=== PATIENT | male | born 1975 | race Caucasian/White ===

== ENCOUNTER 2019-10-16 20:14 | Emergency (ER) | payer MEDICAID, OTHER ==
[~2019-10-16] VITALS: Ht 172.7 cm; Wt 100.0 kg
[~2019-10-16 20:14] MED LIST: ASPI-728 PO; LEVE500T53 PO; LISI-662 PO; METF-960 PO; QUET200T PO; SERT100T12 PO; TRAZ-257 PO; VERA240SR PO
[2019-10-16 22:33] LABS: BASOPHILS % (AUTO) 0.6 % (0.0-2.0); EOSINOPHILS % (AUTO) 0.3 % (1.0-6.0); HEMATOCRIT 41.5 % (41-53); HEMOGLOBIN 13.8 g/dL (13.5-17.5); LYMPHOCYTES # (AUTO) 2.1 K/uL (1.0-4.8); LYMPHOCYTES % (AUTO) 21.5 % (22.0-44.0); MEAN CORPUSCULAR HEMOGLOBIN 28.6 pg (26.0-34.0); MEAN CORPUSCULAR HGB CONC 33.2 G/dL (31.0-37.0); MEAN CORPUSCULAR VOLUME 86 fL (80-100); MONOCYTES # (AUTO) 0.8 K/uL (0.1-1.0); MONOCYTES % (AUTO) 8.3 % (2.0-9.0); NEUTROPHILS # (AUTO) 6.8 K/uL (1.8-7.7); NEUTROPHILS % (AUTO) 69.3 % (40.0-70.0); PLATELET COUNT (AUTO) 308 K/uL (150-450); RED BLOOD CELL COUNT(AUTO) 4.83 MIL/uL (4.50-5.90); RED CELL DISTRIBUTION WIDTH 15.1 % (11.5-14.5)
[2019-10-16 22:43] LABS: ANION GAP 9 mmol/L (8-16); CALCIUM, TOTAL 8.1 mg/dL (8.8-10.5); CARBON DIOXIDE 29 mmol/L (22-29); CHLORIDE 104 mmol/L (98-107); CREATININE 0.77 mg/dL (0.60-1.30); GLOMERULAR FILTR. RATE CALC > 60 mL/min (>60); GLUCOSE,RANDOM 263 mg/dL (70-110); POTASSIUM 3.8 mmol/L (3.5-5.1); SODIUM SERUM 142 mmol/L (136-145); UREA NITROGEN, BLOOD 5 mg/dL (7-18)
[2019-10-16 22:49] LABS: ALANINE AMINOTRANSFERASE 38 U/L (12-78); ALBUMIN 3.7 g/dL (3.4-5.0); ALKALINE PHOSPHATASE 98 U/L (46-116); ASPARTATE AMINOTRANSFERASE 31 U/L (15-37); BILIRUBIN,TOTAL 0.3 mg/dL (0.1-1.0); TOTAL PROTEIN, SERUM 7.1 g/dL (6.4-8.2)
[2019-10-17 04:59] VITALS: BP 132/75
== END 2019-10-17 04:59 | disposition home or self-care (01) ==
LOC: EMS 20:16
DX: F10.229 Alcohol dependence with intoxication, unspecified (principal); I10 Essential (primary) hypertension; E11.9 Type 2 diabetes mellitus without complications; F20.9 Schizophrenia, unspecified; I25.10 Atherosclerotic heart disease of native coronary artery without angina pectoris; F14.90 Cocaine use, unspecified, uncomplicated; F17.290 Nicotine dependence, other tobacco product, uncomplicated; Z79.899 Other long term (current) drug therapy; Y90.8 Blood alcohol level of 240 mg/100 ml or more
CPT/HCPCS: 80053; 85025; 99285; G0480

== ENCOUNTER 2019-10-17 10:38 | Emergency (ER) | payer MEDICAID ==
[~2019-10-17] VITALS: Ht 170.2 cm; Wt 95.5 kg
[2019-10-17] MEDS ORDERED: MAG HYDROX/AL HYDROX/SIMETH ES 30 ML SUSPENSION UDCUP PO ONE (11:45)
[2019-10-17] MEDS ORDERED: ONDANSETRON HCL 4 MG/2 ML VIAL IVP ONE (11:45)
[2019-10-17] MEDS ORDERED: ASPIRIN 325 MG TABLET PO ONE (11:45)
[2019-10-17 12:17] LABS: BASOPHILS % (AUTO) 0.5 % (0.0-2.0); EOSINOPHILS % (AUTO) 0.2 % (1.0-6.0); HEMATOCRIT 39.3 % (41-53); HEMOGLOBIN 12.7 g/dL (13.5-17.5); LYMPHOCYTES % (AUTO) 26.9 % (22.0-44.0); MEAN CORPUSCULAR HEMOGLOBIN 28.1 pg (26.0-34.0); MEAN CORPUSCULAR HGB CONC 32.4 G/dL (31.0-37.0); MEAN CORPUSCULAR VOLUME 87 fL (80-100); MONOCYTES # (AUTO) 0.6 K/uL (0.1-1.0); NEUTROPHILS # (AUTO) 4.7 K/uL (1.8-7.7); NEUTROPHILS % (AUTO) 64.4 % (40.0-70.0); PLATELET COUNT (AUTO) 275 K/uL (150-450); RED BLOOD CELL COUNT(AUTO) 4.54 MIL/uL (4.50-5.90); RED CELL DISTRIBUTION WIDTH 14.9 % (11.5-14.5)
[2019-10-17 12:25] LABS: ANION GAP 10 mmol/L (8-16); CALCIUM, TOTAL 7.8 mg/dL (8.8-10.5); CARBON DIOXIDE 28 mmol/L (22-29); CHLORIDE 108 mmol/L (98-107); CREATININE 0.44 mg/dL (0.60-1.30); GLOMERULAR FILTR. RATE CALC > 60 mL/min (>60); GLUCOSE,RANDOM 229 mg/dL (70-110); POTASSIUM 3.5 mmol/L (3.5-5.1); SODIUM SERUM 146 mmol/L (136-145); UREA NITROGEN, BLOOD 6 mg/dL (7-18)
[2019-10-17 12:37] LABS: ALANINE AMINOTRANSFERASE 40 U/L (12-78); ALBUMIN 3.3 g/dL (3.4-5.0); ALKALINE PHOSPHATASE 77 U/L (46-116); ASPARTATE AMINOTRANSFERASE 43 U/L (15-37); BILIRUBIN,TOTAL 0.3 mg/dL (0.1-1.0); LIPASE 124 U/L (73-393); TOTAL PROTEIN, SERUM 6.6 g/dL (6.4-8.2)
[2019-10-17 14:36] VITALS: BP 114/60
== END 2019-10-17 14:38 | disposition home or self-care (01) ==
LOC: EMS 10:40
DX: E11.65 Type 2 diabetes mellitus with hyperglycemia (principal); F10.129 Alcohol abuse with intoxication, unspecified; F17.210 Nicotine dependence, cigarettes, uncomplicated; F14.90 Cocaine use, unspecified, uncomplicated; I25.10 Atherosclerotic heart disease of native coronary artery without angina pectoris; F20.9 Schizophrenia, unspecified; Y90.8 Blood alcohol level of 240 mg/100 ml or more
CPT/HCPCS: 36415; 71045; 80053; 83690; 84484; 85025; 93005; 96374; 99285; G0480; J2405

== ENCOUNTER 2019-10-20 12:24 | Emergency (ER) | payer MEDICAID ==
[~2019-10-20] VITALS: Ht 177.8 cm; Wt 118.2 kg
[2019-10-20 13:08] LABS: GLUCOSE,POINT OF CARE 216 MG/DL (70-110)
[2019-10-20 16:25] VITALS: BP 137/84
== END 2019-10-20 17:23 | disposition home or self-care (01) ==
LOC: EMS 12:26
DX: F10.129 Alcohol abuse with intoxication, unspecified (principal); I25.10 Atherosclerotic heart disease of native coronary artery without angina pectoris; E11.9 Type 2 diabetes mellitus without complications; I10 Essential (primary) hypertension; F17.210 Nicotine dependence, cigarettes, uncomplicated; F14.90 Cocaine use, unspecified, uncomplicated; F20.9 Schizophrenia, unspecified; Z79.82 Long term (current) use of aspirin; Z79.84 Long term (current) use of oral hypoglycemic drugs

== ENCOUNTER 2019-10-22 13:37 | Emergency (ER) | payer MEDICAID ==
[~2019-10-22] VITALS: Ht 177.8 cm; Wt 113.6 kg
[2019-10-22] MEDS ORDERED: SODIUM CHLORIDE 0.9% 1,000 ML IV ONE (14:00)
[2019-10-22 14:32] LABS: BASOPHILS % (AUTO) 0.4 % (0.0-2.0); EOSINOPHILS % (AUTO) 0.3 % (1.0-6.0); HEMATOCRIT 40.5 % (41-53); HEMOGLOBIN 13.6 g/dL (13.5-17.5); LYMPHOCYTES # (AUTO) 1.2 K/uL (1.0-4.8); LYMPHOCYTES % (AUTO) 27.7 % (22.0-44.0); MEAN CORPUSCULAR HGB CONC 33.6 G/dL (31.0-37.0); MEAN CORPUSCULAR VOLUME 86 fL (80-100); MONOCYTES # (AUTO) 0.4 K/uL (0.1-1.0); MONOCYTES % (AUTO) 9.9 % (2.0-9.0); NEUTROPHILS # (AUTO) 2.8 K/uL (1.8-7.7); NEUTROPHILS % (AUTO) 61.7 % (40.0-70.0); PLATELET COUNT (AUTO) 258 K/uL (150-450); RED CELL DISTRIBUTION WIDTH 14.6 % (11.5-14.5)
[2019-10-22 14:45] LABS: PROTHROMBIN TIME 10.1 SEC (9.4-11.6)
[2019-10-22 14:51] LABS: ANION GAP 13 mmol/L (8-16); CALCIUM, TOTAL 7.4 mg/dL (8.8-10.5); CARBON DIOXIDE 27 mmol/L (22-29); CHLORIDE 100 mmol/L (98-107); CREATININE 0.66 mg/dL (0.60-1.30); GLOMERULAR FILTR. RATE CALC > 60 mL/min (>60); GLUCOSE,RANDOM 349 mg/dL (70-110); POTASSIUM 3.2 mmol/L (3.5-5.1); SODIUM SERUM 140 mmol/L (136-145); UREA NITROGEN, BLOOD 3 mg/dL (7-18)
[2019-10-22 14:55] LABS: AMPHET/METH SCREEN,URINE NEGATIVE (NEGATIVE); BARBITURATE SCREEN, URINE NEGATIVE (NEGATIVE); BENZODIAZEPINES SCREEN,URINE NEGATIVE (NEGATIVE); CANNABINOID SCREEN,URINE NEGATIVE (NEGATIVE); COCAINE SCREEN,URINE NEGATIVE (NEGATIVE); METHADONE SCREEN, URINE NEGATIVE (NEGATIVE); OPIATE SCREEN,URINE NEGATIVE (NEGATIVE)
[2019-10-22 14:58] LABS: ALANINE AMINOTRANSFERASE 72 U/L (12-78); ALBUMIN 3.4 g/dL (3.4-5.0); ALKALINE PHOSPHATASE 98 U/L (46-116); ASPARTATE AMINOTRANSFERASE 70 U/L (15-37); BILIRUBIN,TOTAL 0.5 mg/dL (0.1-1.0); TOTAL PROTEIN, SERUM 6.5 g/dL (6.4-8.2)
[2019-10-22 15:13] LABS: PHENCYCLIDINE SCREEN,URINE NEGATIVE (NEGATIVE)
[2019-10-22] MEDS ORDERED: MAGNESIUM SULFATE 2 GM, MVI, ADULT NO.1 WITH VIT K 10 ML, THIAMINE 100 MG, FOLIC ACID 1... IV ONE ×5 (15:30)
[2019-10-22 17:47] VITALS: BP 159/94
== END 2019-10-22 17:40 | disposition left against medical advice (07) ==
LOC: EMS 13:43
DX: F10.229 Alcohol dependence with intoxication, unspecified (principal); I25.10 Atherosclerotic heart disease of native coronary artery without angina pectoris; F20.9 Schizophrenia, unspecified; E11.9 Type 2 diabetes mellitus without complications; I10 Essential (primary) hypertension; F17.210 Nicotine dependence, cigarettes, uncomplicated; F14.90 Cocaine use, unspecified, uncomplicated; Z79.82 Long term (current) use of aspirin; Z79.84 Long term (current) use of oral hypoglycemic drugs; Z79.899 Other long term (current) drug therapy; Y90.8 Blood alcohol level of 240 mg/100 ml or more
CPT/HCPCS: 36415; 80053; 80307; 82962; 84484; 85025; 85610; 85730; 93005; 96365; 96366; 99285; G0480; J3411; J3475; J3490 ×2; J7030; 51702

== ENCOUNTER 2019-10-23 17:47 | Inpatient (IN) | payer MEDICAID ==
[~2019-10-23] VITALS: Ht 167.6 cm; Wt 107.5 kg
[2019-10-23 19:51] LABS: BASOPHILS % (AUTO) 0.4 % (0.0-2.0); EOSINOPHILS % (AUTO) 0.4 % (1.0-6.0); HEMATOCRIT 37.3 % (41-53); HEMOGLOBIN 12.5 g/dL (13.5-17.5); LYMPHOCYTES # (AUTO) 1.3 K/uL (1.0-4.8); LYMPHOCYTES % (AUTO) 27.5 % (22.0-44.0); MEAN CORPUSCULAR HEMOGLOBIN 28.6 pg (26.0-34.0); MEAN CORPUSCULAR HGB CONC 33.4 G/dL (31.0-37.0); MEAN CORPUSCULAR VOLUME 86 fL (80-100); MONOCYTES # (AUTO) 0.4 K/uL (0.1-1.0); MONOCYTES % (AUTO) 8.4 % (2.0-9.0); NEUTROPHILS % (AUTO) 63.3 % (40.0-70.0); PLATELET COUNT (AUTO) 188 K/uL (150-450); RED BLOOD CELL COUNT(AUTO) 4.36 MIL/uL (4.50-5.90); RED CELL DISTRIBUTION WIDTH 14.4 % (11.5-14.5)
[2019-10-23 20:09] LABS: ANION GAP 8 mmol/L (8-16); CALCIUM, TOTAL 7.6 mg/dL (8.8-10.5); CARBON DIOXIDE 27 mmol/L (22-29); CHLORIDE 103 mmol/L (98-107); CREATININE 0.53 mg/dL (0.60-1.30); GLOMERULAR FILTR. RATE CALC > 60 mL/min (>60); GLUCOSE,RANDOM 233 mg/dL (70-110); POTASSIUM 3.1 mmol/L (3.5-5.1); SODIUM SERUM 138 mmol/L (136-145); UREA NITROGEN, BLOOD 4 mg/dL (7-18)
[2019-10-23 20:24] LABS: ALANINE AMINOTRANSFERASE 100 U/L (12-78); ALBUMIN 3.3 g/dL (3.4-5.0); ALKALINE PHOSPHATASE 91 U/L (46-116); ASPARTATE AMINOTRANSFERASE 127 U/L (15-37); BILIRUBIN,TOTAL 0.6 mg/dL (0.1-1.0); LIPASE 281 U/L (73-393); TOTAL PROTEIN, SERUM 6.5 g/dL (6.4-8.2)
[2019-10-23] MEDS ORDERED: POTASSIUM CHLORIDE 10% 40 MEQ/30 ML LIQUID UDCUP PO ONE (20:45)
[2019-10-24] VITALS (14 sets, daily range): BP systolic 130–176; BP diastolic 68–100
[2019-10-24] MEDS ORDERED: QUEtiapine FUMARATE 100 MG TABLET PO PRN (02:30)
[2019-10-24] MEDS: LORazepam 2 MG TABLET PO PRN ×4 (05:28→15:02)
[2019-10-24 05:43] LABS: THYROID STIMULATING HORMONE 1.12 uIU/mL (0.36-3.74)
[2019-10-24] MEDS ORDERED: ONDANSETRON HCL 4 MG TABLET PO PRN (06:30)
[2019-10-24] MEDS: LISINOPRIL 10 MG TABLET PO SCH (08:06)
[2019-10-24] MEDS: PANTOPRAZOLE SODIUM 40 MG DR TABLET PO SCH (08:06)
[2019-10-24] MEDS: VERAPAMIL HCL 120 MG TABLET PO SCH (14:05)
[2019-10-24] MEDS ORDERED: GLUCAGON,HUMAN RECOMBINANT 1 MG VIAL IM PRN (14:30)
[2019-10-24] MEDS ORDERED: LOPERAMIDE HCL 2 MG CAPSULE PO PRN (15:30)
[2019-10-24] MEDS ORDERED: PROMETHAZINE HCL 25 MG TABLET PO PRN (15:30)
[2019-10-24] MEDS ORDERED: CYANOCOBALAMIN 1,000 MCG/ML VIAL IM ONE (15:30)
[2019-10-24] MEDS ORDERED: GuaiFENesin/D-METHORPHAN [SUGAR-FREE] 200-20MG/10 ML SYRUP UDCUP PO PRN (15:30)
[2019-10-24] MEDS ORDERED: HydrOXYzine PAMOATE 50 MG CAPSULE PO PRN (15:30)
[2019-10-24] MEDS ORDERED: DIAZEPAM 10 MG TABLET PO PRN (15:30)
[2019-10-24] MEDS ORDERED: MAGNESIUM HYDROXIDE SUSPENSION 30 ML UDCUP PO PRN (15:30)
[2019-10-24] MEDS ORDERED: MAG HYDROX/AL HYDROX/SIMETH ES 30 ML SUSPENSION UDCUP PO PRN (15:30)
[2019-10-24] MEDS ORDERED: TUBERCULIN, PURIFIED PROTEIN DERIVATIVE 5 TU/0.1 ML SYRINGE ID ONE (15:30)
[2019-10-24] MEDS: THIAMINE 100 MG TABLET PO SCH (16:46)
[2019-10-24] MEDS: MetFORMIN HCL 500 MG TABLET PO SCH (16:47)
[2019-10-24] MEDS: LevETIRAcetam 500 MG TABLET PO SCH (16:47)
[2019-10-24] MEDS: GABAPENTIN 300 MG CAPSULE PO SCH ×2 (16:47→20:06)
[2019-10-24] MEDS: INSULIN LISPRO 100 UNITS/ML SQ PRN (17:10)
[2019-10-24] MEDS: ACETAMINOPHEN 325 MG TABLET PO PRN (17:24)
[2019-10-24 17:55] LABS: GLUCOMETER DEV NAME(LOC) BV3N.; GLUCOSE,POINT OF CARE 226 MG/DL (70-110)
[2019-10-24] MEDS: MIRTAZAPINE 15 MG TABLET PO SCH (20:06)
[2019-10-25] VITALS (8 sets, daily range): BP systolic 116–144; BP diastolic 70–87
[2019-10-25] MEDS: MetFORMIN HCL 500 MG TABLET PO SCH ×2 (06:31→16:32)
[2019-10-25] MEDS ORDERED: LORazepam 2 MG TABLET PO PRN (07:00)
[2019-10-25 07:09] LABS: GLUCOMETER DEV NAME(LOC) BV3N.; GLUCOSE,POINT OF CARE 184 MG/DL (70-110)
[2019-10-25 08:32] LABS: HEMOGLOBIN A1C 8.1 % (3.8-5.6)
[2019-10-25 08:38] LABS: CHOL/HDL RATIO 2.5 (4.2-7.3); FREE T4 (FREE THYROXINE) 1.12 ng/dL (0.76-1.46); THYROID STIMULATING HORMONE 1.34 uIU/mL (0.36-3.74)
[2019-10-25] MEDS: MULTIVITAMINS WITH MINERALS, THERAPEUTIC TABLET PO SCH (08:47)
[2019-10-25] MEDS: THIAMINE 100 MG TABLET PO SCH ×2 (08:47→16:32)
[2019-10-25] MEDS: LevETIRAcetam 500 MG TABLET PO SCH ×2 (08:48→16:32)
[2019-10-25] MEDS: LISINOPRIL 10 MG TABLET PO SCH (08:48)
[2019-10-25] MEDS: GABAPENTIN 300 MG CAPSULE PO SCH ×4 (08:48→20:34)
[2019-10-25] MEDS: VERAPAMIL HCL 120 MG TABLET PO SCH (08:48)
[2019-10-25] MEDS: DIAZEPAM 10 MG TABLET PO SCH ×4 (08:48→20:23)
[2019-10-25] MEDS: FOLIC ACID 1 MG TABLET PO SCH (08:48)
[2019-10-25] MEDS: PANTOPRAZOLE SODIUM 40 MG DR TABLET PO SCH (08:48)
[2019-10-25] MEDS ORDERED: LORazepam 2 MG TABLET PO SCH (09:00)
[2019-10-25] MEDS: INSULIN LISPRO 100 UNITS/ML SQ PRN (16:33)
[2019-10-25 18:35] LABS: GLUCOMETER DEV NAME(LOC) BV3N.; GLUCOSE,POINT OF CARE 217 MG/DL (70-110)
[2019-10-25] MEDS: MIRTAZAPINE 15 MG TABLET PO SCH (20:23)
[2019-10-26] VITALS: BP 124/90
[2019-10-26] MEDS: ZOLPIDEM TARTRATE 10 MG TABLET PO PRN (00:33)
[2019-10-26 01:00] VITALS: BP 134/94
[2019-10-26] MEDS: ACETAMINOPHEN 325 MG TABLET PO PRN (01:04)
[2019-10-26] MEDS: MetFORMIN HCL 500 MG TABLET PO SCH ×2 (06:13→16:57)
[2019-10-26 06:39] LABS: GLUCOMETER DEV NAME(LOC) BV3S.; GLUCOSE,POINT OF CARE 189 MG/DL (70-110)
[2019-10-26 08:05] VITALS: BP 138/78
[2019-10-26 08:06] VITALS: BP 138/78
[2019-10-26] MEDS: LISINOPRIL 10 MG TABLET PO SCH (08:13)
[2019-10-26] MEDS: THIAMINE 100 MG TABLET PO SCH ×2 (08:13→16:58)
[2019-10-26] MEDS: FOLIC ACID 1 MG TABLET PO SCH (08:13)
[2019-10-26] MEDS: PANTOPRAZOLE SODIUM 40 MG DR TABLET PO SCH (08:13)
[2019-10-26] MEDS: LevETIRAcetam 500 MG TABLET PO SCH ×2 (08:13→16:57)
[2019-10-26] MEDS: MULTIVITAMINS WITH MINERALS, THERAPEUTIC TABLET PO SCH (08:13)
[2019-10-26] MEDS: GABAPENTIN 300 MG CAPSULE PO SCH ×2 (08:13→13:00)
[2019-10-26] MEDS: DIAZEPAM 10 MG TABLET PO SCH ×4 (08:13→20:21)
[2019-10-26] MEDS: VERAPAMIL HCL 120 MG TABLET PO SCH (08:15)
[2019-10-26 12:09] LABS: GLUCOMETER DEV NAME(LOC) BV3N.; GLUCOSE,POINT OF CARE 199 MG/DL (70-110)
[2019-10-26] MEDS: INSULIN LISPRO 100 UNITS/ML SQ PRN ×2 (12:09→17:13)
[2019-10-26 16:03] VITALS: BP 131/99
[2019-10-26] MEDS: GABAPENTIN 400 MG CAPSULE PO SCH ×2 (16:57→20:21)
[2019-10-26 17:26] LABS: GLUCOMETER DEV NAME(LOC) BV3N.; GLUCOSE,POINT OF CARE 235 MG/DL (70-110)
[2019-10-26] MEDS: MIRTAZAPINE 15 MG TABLET PO SCH (20:21)
[2019-10-27 01:29] VITALS: BP 128/86
[2019-10-27] MEDS: ZOLPIDEM TARTRATE 10 MG TABLET PO PRN (01:39)
[2019-10-27] MEDS: DIAZEPAM 10 MG TABLET PO PRN ×2 (01:39→06:12)
[2019-10-27] MEDS: MetFORMIN HCL 500 MG TABLET PO SCH (06:11)
[2019-10-27 06:13] LABS: GLUCOMETER DEV NAME(LOC) BV3N.; GLUCOSE,POINT OF CARE 149 MG/DL (70-110)
[2019-10-27] MEDS: INSULIN LISPRO 100 UNITS/ML SQ PRN (06:15)
[2019-10-27] MEDS ORDERED: LORazepam 1 MG TABLET PO PRN (07:00)
[2019-10-27] MEDS ORDERED: DIAZEPAM 5 MG TABLET PO PRN (07:00)
[2019-10-27] MEDS: ACETAMINOPHEN 325 MG TABLET PO PRN (07:12)
[2019-10-27 08:12] VITALS: BP 99/60
[2019-10-27] MEDS: THIAMINE 100 MG TABLET PO SCH (08:12)
[2019-10-27] MEDS: FOLIC ACID 1 MG TABLET PO SCH (08:12)
[2019-10-27] MEDS: GABAPENTIN 400 MG CAPSULE PO SCH ×2 (08:12→12:33)
[2019-10-27] MEDS: LISINOPRIL 10 MG TABLET PO SCH (08:12)
[2019-10-27] MEDS: MULTIVITAMINS WITH MINERALS, THERAPEUTIC TABLET PO SCH (08:12)
[2019-10-27] MEDS: DIAZEPAM 5 MG TABLET PO SCH ×2 (08:13→12:33)
[2019-10-27] MEDS: LevETIRAcetam 500 MG TABLET PO SCH (08:13)
[2019-10-27] MEDS: PANTOPRAZOLE SODIUM 40 MG DR TABLET PO SCH (08:13)
[2019-10-27 08:15] VITALS: BP 110/62
[2019-10-27] MEDS: VERAPAMIL HCL 120 MG TABLET PO SCH (08:16)
[2019-10-27] MEDS ORDERED: GABA-1201 PO (08:55)
[2019-10-27] MEDS ORDERED: NALT50TA PO (08:55)
[2019-10-27] MEDS ORDERED: MIRT-89 PO (08:55)
[2019-10-27] MEDS ORDERED: LEVE500T53 PO (08:55)
[2019-10-27] MEDS ORDERED: LORazepam 1 MG TABLET PO SCH (09:00)
[2019-10-27] MEDS ORDERED: PANT-31 PO (10:58)
[2019-10-27] MEDS ORDERED: VERA120T33 PO (10:58)
[2019-10-27] MEDS ORDERED: LISI-661 PO (11:12)
[2019-10-27 11:57] LABS: GLUCOMETER DEV NAME(LOC) BV3N.; GLUCOSE,POINT OF CARE 157 MG/DL (70-110)
[2019-10-27] MEDS ORDERED: LOPERAMIDE HCL 2 MG CAPSULE PO PRN (15:30)
[2019-10-28] MEDS ORDERED: DIAZEPAM 5 MG TABLET PO PRN (07:00)
[2019-10-28] MEDS ORDERED: LORazepam 1 MG TABLET PO PRN (07:00)
== END 2019-10-27 13:54 | disposition home or self-care (01) | DRG 751 ==
LOC: EMS 17:49 → B3A 10-24 02:17
PROVIDERS: ADMIT Psychiatry & Neurology Psychiatry; ATTEND Psychiatry & Neurology Psychiatry
DX: F33.2 Major depressive disorder, recurrent severe without psychotic features (principal); E11.65 Type 2 diabetes mellitus with hyperglycemia; R45.851 Suicidal ideations; K70.30 Alcoholic cirrhosis of liver without ascites; G40.409 Other generalized epilepsy and epileptic syndromes, not intractable, without status epilepticus; I10 Essential (primary) hypertension; I25.10 Atherosclerotic heart disease of native coronary artery without angina pectoris; Z59.0 Homelessness; Z87.11 Personal history of peptic ulcer disease; F10.229 Alcohol dependence with intoxication, unspecified; Z91.5 Personal history of self-harm; F17.210 Nicotine dependence, cigarettes, uncomplicated; K21.9 Gastro-esophageal reflux disease without esophagitis; E87.6 Hypokalemia; K25.9 Gastric ulcer, unspecified as acute or chronic, without hemorrhage or perforation; F20.9 Schizophrenia, unspecified; F14.90 Cocaine use, unspecified, uncomplicated; Z91.19 Patient's noncompliance with other medical treatment and regimen; F12.90 Cannabis use, unspecified, uncomplicated; Y90.8 Blood alcohol level of 240 mg/100 ml or more; Z68.38 Body mass index [BMI] 38.0-38.9, adult; Z79.899 Other long term (current) drug therapy
CPT/HCPCS: 83036; 84439; 84443; 86592; G0480; J3420; Q0162

== ENCOUNTER 2019-11-22 07:56 | Emergency (ER) | payer MEDICAID ==
[~2019-11-22] VITALS: Ht 175.3 cm; Wt 97.7 kg
[~2019-11-22 07:56] MED LIST changes: +GABA-1201 PO; +LISI-661 PO; +MIRT-89 PO; +NALT50TA PO; +PANT-31 PO; +VERA120T33 PO
[2019-11-22 08:51] LABS: BASOPHILS % (AUTO) 0.5 % (0.0-2.0); EOSINOPHILS % (AUTO) 0.1 % (1.0-6.0); HEMATOCRIT 42.5 % (41-53); LYMPHOCYTES % (AUTO) 14.9 % (22.0-44.0); MEAN CORPUSCULAR HEMOGLOBIN 28.3 pg (26.0-34.0); MEAN CORPUSCULAR HGB CONC 33.1 G/dL (31.0-37.0); MEAN CORPUSCULAR VOLUME 86 fL (80-100); MONOCYTES # (AUTO) 0.4 K/uL (0.1-1.0); MONOCYTES % (AUTO) 6.3 % (2.0-9.0); NEUTROPHILS # (AUTO) 5.4 K/uL (1.8-7.7); NEUTROPHILS % (AUTO) 78.2 % (40.0-70.0); PLATELET COUNT (AUTO) 244 K/uL (150-450); RED BLOOD CELL COUNT(AUTO) 4.97 MIL/uL (4.50-5.90); RED CELL DISTRIBUTION WIDTH 14.4 % (11.5-14.5)
[2019-11-22 08:59] LABS: ANION GAP 11 mmol/L (8-16); CALCIUM, TOTAL 7.9 mg/dL (8.8-10.5); CARBON DIOXIDE 27 mmol/L (22-29); CHLORIDE 101 mmol/L (98-107); CREATININE 0.61 mg/dL (0.60-1.30); GLOMERULAR FILTR. RATE CALC > 60 mL/min (>60); GLUCOSE,RANDOM 132 mg/dL (70-110); POTASSIUM 3.5 mmol/L (3.5-5.1); SODIUM SERUM 139 mmol/L (136-145); UREA NITROGEN, BLOOD 10 mg/dL (7-18)
[2019-11-22 09:05] LABS: ALANINE AMINOTRANSFERASE 100 U/L (12-78); ALBUMIN 3.4 g/dL (3.4-5.0); ALKALINE PHOSPHATASE 76 U/L (46-116); ASPARTATE AMINOTRANSFERASE 209 U/L (15-37); BILIRUBIN,TOTAL 0.5 mg/dL (0.1-1.0); TOTAL PROTEIN, SERUM 7.1 g/dL (6.4-8.2)
[2019-11-22 09:09] LABS: ACETAMINOPHEN < 2 mcg/mL (10-30)
[2019-11-22 09:47] LABS: SALICYLATE 1.9 mg/dL (2.8-20.0)
[2019-11-22 10:24] LABS: AMPHET/METH SCREEN,URINE NEGATIVE (NEGATIVE); BARBITURATE SCREEN, URINE NEGATIVE (NEGATIVE); BENZODIAZEPINES SCREEN,URINE NEGATIVE (NEGATIVE); CANNABINOID SCREEN,URINE NEGATIVE (NEGATIVE); COCAINE SCREEN,URINE NEGATIVE (NEGATIVE); METHADONE SCREEN, URINE NEGATIVE (NEGATIVE); OPIATE SCREEN,URINE NEGATIVE (NEGATIVE)
[2019-11-22 10:35] LABS: PHENCYCLIDINE SCREEN,URINE NEGATIVE (NEGATIVE)
[2019-11-22] MEDS ORDERED: SODIUM CHLORIDE 0.9% 1,000 ML IV ONE (12:45)
[2019-11-22] MEDS ORDERED: MAGNESIUM SULFATE 2 GM, MVI, ADULT NO.1 WITH VIT K 10 ML, THIAMINE 100 MG, FOLIC ACID 1... IV ONE ×5 (12:45)
[2019-11-22 15:42] VITALS: BP 127/74
[2019-11-22] MEDS ORDERED: SERT100T12 PO (15:42)
== END 2019-11-22 16:28 | disposition home or self-care (01) ==
LOC: EMS 07:57
DX: F10.229 Alcohol dependence with intoxication, unspecified (principal); G31.2 Degeneration of nervous system due to alcohol; E11.9 Type 2 diabetes mellitus without complications; I10 Essential (primary) hypertension; I25.10 Atherosclerotic heart disease of native coronary artery without angina pectoris; F14.90 Cocaine use, unspecified, uncomplicated; F17.290 Nicotine dependence, other tobacco product, uncomplicated; Z79.84 Long term (current) use of oral hypoglycemic drugs; Y90.8 Blood alcohol level of 240 mg/100 ml or more
CPT/HCPCS: 36415; 70450; 80053; 80307; 82962; 85025; 93005; 96365; 96366; 99285; G0480 ×2; G0481; J3411; J3475; J3490 ×2; J7030

== ENCOUNTER 2019-11-24 08:08 | Emergency (ER) | payer MEDICAID ==
[~2019-11-24] VITALS: Ht 175.3 cm; Wt 86.4 kg
[~2019-11-24 08:08] MED LIST changes: -ASPI-728 PO; -LISI-662 PO; -QUET200T PO; -TRAZ-257 PO; -VERA240SR PO
[2019-11-24 08:42] LABS: GLUCOSE,POINT OF CARE 136 MG/DL (70-110)
[2019-11-24] MEDS ORDERED: SODIUM CHLORIDE 0.9% 1,000 ML IV ONE (08:45)
[2019-11-24 09:30] LABS: BASOPHILS % (AUTO) 0.3 % (0.0-2.0); EOSINOPHILS % (AUTO) 0.2 % (1.0-6.0); HEMATOCRIT 40.6 % (41-53); HEMOGLOBIN 13.5 g/dL (13.5-17.5); LYMPHOCYTES # (AUTO) 1.2 K/uL (1.0-4.8); LYMPHOCYTES % (AUTO) 17.9 % (22.0-44.0); MEAN CORPUSCULAR HEMOGLOBIN 28.3 pg (26.0-34.0); MEAN CORPUSCULAR HGB CONC 33.2 G/dL (31.0-37.0); MEAN CORPUSCULAR VOLUME 85 fL (80-100); MONOCYTES # (AUTO) 0.3 K/uL (0.1-1.0); MONOCYTES % (AUTO) 5.2 % (2.0-9.0); NEUTROPHILS % (AUTO) 76.4 % (40.0-70.0); PLATELET COUNT (AUTO) 204 K/uL (150-450); RED BLOOD CELL COUNT(AUTO) 4.75 MIL/uL (4.50-5.90); RED CELL DISTRIBUTION WIDTH 14.7 % (11.5-14.5)
[2019-11-24 09:49] LABS: ANION GAP 7 mmol/L (8-16); CALCIUM, TOTAL 7.6 mg/dL (8.8-10.5); CARBON DIOXIDE 30 mmol/L (22-29); CHLORIDE 105 mmol/L (98-107); CREATININE 0.73 mg/dL (0.60-1.30); GLOMERULAR FILTR. RATE CALC > 60 mL/min (>60); GLUCOSE,RANDOM 135 mg/dL (70-110); POTASSIUM 3.8 mmol/L (3.5-5.1); SODIUM SERUM 142 mmol/L (136-145); UREA NITROGEN, BLOOD 9 mg/dL (7-18)
[2019-11-24 09:56] LABS: ALANINE AMINOTRANSFERASE 109 U/L (12-78); ALBUMIN 3.1 g/dL (3.4-5.0); ALKALINE PHOSPHATASE 69 U/L (46-116); ASPARTATE AMINOTRANSFERASE 144 U/L (15-37); BILIRUBIN,TOTAL 0.4 mg/dL (0.1-1.0); TOTAL PROTEIN, SERUM 6.4 g/dL (6.4-8.2)
[2019-11-24 12:16] VITALS: BP 111/56
[2019-11-24 12:38] LABS: AMPHET/METH SCREEN,URINE NEGATIVE (NEGATIVE); BARBITURATE SCREEN, URINE NEGATIVE (NEGATIVE); BENZODIAZEPINES SCREEN,URINE NEGATIVE (NEGATIVE); CANNABINOID SCREEN,URINE NEGATIVE (NEGATIVE); COCAINE SCREEN,URINE NEGATIVE (NEGATIVE); METHADONE SCREEN, URINE NEGATIVE (NEGATIVE); OPIATE SCREEN,URINE NEGATIVE (NEGATIVE); PHENCYCLIDINE SCREEN,URINE NEGATIVE (NEGATIVE)
== END 2019-11-24 12:37 | disposition home or self-care (01) ==
LOC: EMS 08:08
DX: F10.129 Alcohol abuse with intoxication, unspecified (principal); I25.10 Atherosclerotic heart disease of native coronary artery without angina pectoris; E11.9 Type 2 diabetes mellitus without complications; I10 Essential (primary) hypertension; F20.9 Schizophrenia, unspecified; F17.210 Nicotine dependence, cigarettes, uncomplicated; F14.90 Cocaine use, unspecified, uncomplicated; Z79.84 Long term (current) use of oral hypoglycemic drugs; Z79.899 Other long term (current) drug therapy; Y90.8 Blood alcohol level of 240 mg/100 ml or more
CPT/HCPCS: 36415; 80053; 80307; 82962; 85025; 99283; G0480; J7030

== ENCOUNTER 2020-01-17 07:30 | Inpatient (IN) | payer MEDICAID ==
[~2020-01-17] VITALS: Ht 167.6 cm; Wt 102.5 kg
[~2020-01-17 07:30] MED LIST changes: +LISI-660 PO; +RAMI1.258 PO; +SIMV-259 PO
[2020-01-17 08:15] LABS: BASOPHILS % (AUTO) 0.6 % (0.0-2.0); EOSINOPHILS % (AUTO) 2.1 % (1.0-6.0); HEMOGLOBIN 13.5 g/dL (13.5-17.5); LYMPHOCYTES # (AUTO) 1.6 K/uL (1.0-4.8); LYMPHOCYTES % (AUTO) 32.8 % (22.0-44.0); MEAN CORPUSCULAR HEMOGLOBIN 26.7 pg (26.0-34.0); MEAN CORPUSCULAR VOLUME 83 fL (80-100); MONOCYTES # (AUTO) 0.5 K/uL (0.1-1.0); MONOCYTES % (AUTO) 9.6 % (2.0-9.0); NEUTROPHILS # (AUTO) 2.7 K/uL (1.8-7.7); NEUTROPHILS % (AUTO) 54.9 % (40.0-70.0); PLATELET COUNT (AUTO) 336 K/uL (150-450); RED BLOOD CELL COUNT(AUTO) 5.05 MIL/uL (4.50-5.90); RED CELL DISTRIBUTION WIDTH 16.8 % (11.5-14.5)
[2020-01-17] MEDS ORDERED: IOVERSOL 350 MG/ML 100 ML VIAL ONE (08:25)
[2020-01-17] MEDS ORDERED: SODIUM CHLORIDE 0.9% 100 ML ONE (08:25)
[2020-01-17 08:27] LABS: ANION GAP 8 mmol/L (8-16); CALCIUM, TOTAL 8.2 mg/dL (8.8-10.5); CARBON DIOXIDE 28 mmol/L (22-29); CHLORIDE 105 mmol/L (98-107); CREATININE 0.73 mg/dL (0.60-1.30); GLOMERULAR FILTR. RATE CALC > 60 mL/min (>60); GLUCOSE,RANDOM 126 mg/dL (70-110); POTASSIUM 3.4 mmol/L (3.5-5.1); SODIUM SERUM 141 mmol/L (136-145); UREA NITROGEN, BLOOD 9 mg/dL (7-18)
[2020-01-17 08:32] LABS: ALANINE AMINOTRANSFERASE 61 U/L (12-78); ALBUMIN 3.6 g/dL (3.4-5.0); ALKALINE PHOSPHATASE 71 U/L (46-116); ASPARTATE AMINOTRANSFERASE 51 U/L (15-37); BILIRUBIN,TOTAL 0.4 mg/dL (0.1-1.0); TOTAL PROTEIN, SERUM 7.3 g/dL (6.4-8.2)
[2020-01-17 08:53] LABS: LIPASE 189 U/L (73-393)
[2020-01-17] MEDS ORDERED: HALOPERIDOL 5 MG TABLET PO PRN (10:15)
[2020-01-17] MEDS: DIAZEPAM 5 MG TABLET PO PRN ×3 (12:05→19:06)
[2020-01-17 13:15] LABS: APPEARANCE,URINE CLEAR (CLEAR); BILIRUBIN,URINE NEGATIVE (NEGATIVE); GLUCOSE, URINE (UA) 250 mg/dL (NEGATIVE); KETONES,URINE NEGATIVE (NEGATIVE); LEUKOCYTE ESTERASE ,URINE NEGATIVE (NEGATIVE); NITRATE,URINE NEGATIVE (NEGATIVE); OCCULT BLOOD,URINE NEGATIVE (NEGATIVE); PROTEIN,URINE NEGATIVE (NEGATIVE)
[2020-01-17 13:21] LABS: AMPHET/METH SCREEN,URINE NEGATIVE (NEGATIVE); BARBITURATE SCREEN, URINE NEGATIVE (NEGATIVE); BENZODIAZEPINES SCREEN,URINE NEGATIVE (NEGATIVE); CANNABINOID SCREEN,URINE NEGATIVE (NEGATIVE); COCAINE SCREEN,URINE NEGATIVE (NEGATIVE); METHADONE SCREEN, URINE NEGATIVE (NEGATIVE); OPIATE SCREEN,URINE NEGATIVE (NEGATIVE)
[2020-01-17 13:23] LABS: PHENCYCLIDINE SCREEN,URINE NEGATIVE (NEGATIVE)
[2020-01-17 13:26] LABS: BACTERIA,URINE None Seen /HPF (None Seen); RBC,URINE None Seen /HPF (0-2); WBC,URINE None Seen /HPF (0-5)
[2020-01-17 18:45] VITALS: BP 141/84
[2020-01-17 18:55] LABS: GLUCOMETER DEV NAME(LOC) BV3N.; GLUCOSE,POINT OF CARE 194 MG/DL (70-110)
[2020-01-17] MEDS ORDERED: ACETAMINOPHEN 325 MG TABLET PO PRN (19:30)
[2020-01-17] MEDS ORDERED: GLUCAGON,HUMAN RECOMBINANT 1 MG VIAL IM PRN (19:30)
[2020-01-17 19:40] VITALS: BP 116/86
[2020-01-17] MEDS ORDERED: PNEUMOCOCCAL VACCINE POLYVALENT 0.5 ML VIAL [PPSV23] IM ONE (20:15)
[2020-01-17] MEDS: SIMVASTATIN 10 MG TABLET PO SCH (20:31)
[2020-01-17] MEDS: GABAPENTIN 400 MG CAPSULE PO SCH (20:31)
[2020-01-17 20:40] VITALS: BP 117/64
[2020-01-17] MEDS: INSULIN LISPRO 100 UNITS/ML SQ PRN (20:58)
[2020-01-17 21:21] LABS: GLUCOMETER DEV NAME(LOC) BV3N.; GLUCOSE,POINT OF CARE 159 MG/DL (70-110)
[2020-01-17 21:40] VITALS: BP 116/70
[2020-01-18] VITALS (11 sets, daily range): BP systolic 122–145; BP diastolic 79–89
[2020-01-18 06:25] LABS: GLUCOMETER DEV NAME(LOC) BV3N.; GLUCOSE,POINT OF CARE 131 MG/DL (70-110)
[2020-01-18] MEDS: DIAZEPAM 5 MG TABLET PO PRN (06:58)
[2020-01-18] MEDS: MetFORMIN HCL 500 MG TABLET PO SCH ×2 (06:58→16:48)
[2020-01-18] MEDS ORDERED: DIAZEPAM 10 MG TABLET PO PRN (07:00)
[2020-01-18] MEDS ORDERED: MAGNESIUM HYDROXIDE SUSPENSION 30 ML UDCUP PO PRN (08:15)
[2020-01-18] MEDS ORDERED: ALBUTEROL SULFATE HFA 90 MCG/PUFF 8 GM INHALER IH PRN (08:15)
[2020-01-18] MEDS ORDERED: DOCUSATE SODIUM 100 MG CAPSULE PO PRN (08:15)
[2020-01-18] MEDS ORDERED: MAG HYDROX/AL HYDROX/SIMETH ES 30 ML SUSPENSION UDCUP PO PRN (08:15)
[2020-01-18] MEDS ORDERED: LOPERAMIDE HCL 2 MG CAPSULE PO PRN (08:15)
[2020-01-18] MEDS ORDERED: ACETAMINOPHEN 325 MG TABLET PO PRN (08:15)
[2020-01-18] MEDS ORDERED: PETROLATUM,WHITE 28 GM JELLY TP PRN (08:15)
[2020-01-18] MEDS ORDERED: GuaiFENesin/D-METHORPHAN [SUGAR-FREE] 200-20MG/10 ML SYRUP UDCUP PO PRN (08:15)
[2020-01-18] MEDS ORDERED: CloNIDine HCL 0.1 MG TABLET PO PRN (08:15)
[2020-01-18] MEDS ORDERED: ONDANSETRON HCL 4 MG TABLET PO PRN (08:15)
[2020-01-18 08:24] LABS: CHOL/HDL RATIO 2.4 (4.2-7.3); CHOLESTEROL 172 mg/dL (131-200); FREE T4 (FREE THYROXINE) 0.94 ng/dL (0.76-1.46); HDL CHOLESTEROL 72 mg/dL (40-60); LDL CHOL (CALC.) 86 mg/dL (0-130); THYROID STIMULATING HORMONE 1.45 uIU/mL (0.36-3.74); TRIGLYCERIDES 71 mg/dL (15-150)
[2020-01-18] MEDS: PANTOPRAZOLE SODIUM 40 MG DR TABLET PO SCH (08:41)
[2020-01-18] MEDS: DIAZEPAM 10 MG TABLET PO SCH ×4 (08:41→20:54)
[2020-01-18] MEDS: LevETIRAcetam 500 MG TABLET PO SCH ×2 (08:41→16:48)
[2020-01-18] MEDS: GABAPENTIN 400 MG CAPSULE PO SCH ×4 (08:41→20:53)
[2020-01-18] MEDS: LISINOPRIL 10 MG TABLET PO SCH (08:41)
[2020-01-18] MEDS ORDERED: LevETIRAcetam 500 MG TABLET PO SCH (09:00)
[2020-01-18] MEDS: VERAPAMIL HCL 120 MG ER TABLET PO SCH (09:00)
[2020-01-18] MEDS ORDERED: LISINOPRIL 10 MG TABLET PO SCH (09:00)
[2020-01-18] MEDS ORDERED: PANTOPRAZOLE SODIUM 40 MG DR TABLET PO SCH (09:00)
[2020-01-18 10:55] LABS: GLUCOMETER DEV NAME(LOC) BV3N.; GLUCOSE,POINT OF CARE 238 MG/DL (70-110)
[2020-01-18] MEDS: INSULIN LISPRO 100 UNITS/ML SQ PRN ×3 (11:34→20:59)
[2020-01-18] MEDS: IBUPROFEN 400 MG TABLET PO PRN (12:30)
[2020-01-18] MEDS: TraMADol HCL 50 MG TABLET PO PRN (13:45)
[2020-01-18] MEDS: QUEtiapine FUMARATE 100 MG TABLET PO SCH (16:48)
[2020-01-18] MEDS ORDERED: MetFORMIN HCL 500 MG TABLET PO SCH (17:00)
[2020-01-18 17:30] LABS: GLUCOMETER DEV NAME(LOC) BV3N.; GLUCOSE,POINT OF CARE 176 MG/DL (70-110)
[2020-01-18] MEDS: MIRTAZAPINE 15 MG TABLET PO SCH (20:54)
[2020-01-18] MEDS: SIMVASTATIN 10 MG TABLET PO SCH (20:54)
[2020-01-18 21:27] LABS: GLUCOMETER DEV NAME(LOC) BV3N.; GLUCOSE,POINT OF CARE 153 MG/DL (70-110)
[2020-01-19 01:45] VITALS: BP 124/81
[2020-01-19 06:21] VITALS: BP 132/78
[2020-01-19 06:21] LABS: GLUCOMETER DEV NAME(LOC) BV3N.; GLUCOSE,POINT OF CARE 122 MG/DL (70-110)
[2020-01-19] MEDS: MetFORMIN HCL 500 MG TABLET PO SCH ×2 (06:36→16:27)
[2020-01-19] MEDS: PANTOPRAZOLE SODIUM 40 MG DR TABLET PO SCH (09:11)
[2020-01-19] MEDS: LISINOPRIL 10 MG TABLET PO SCH (09:11)
[2020-01-19] MEDS: DIAZEPAM 10 MG TABLET PO SCH ×4 (09:11→21:10)
[2020-01-19] MEDS: QUEtiapine FUMARATE 100 MG TABLET PO SCH ×2 (09:11→16:26)
[2020-01-19] MEDS: LevETIRAcetam 500 MG TABLET PO SCH ×2 (09:12→16:27)
[2020-01-19] MEDS: GABAPENTIN 400 MG CAPSULE PO SCH ×4 (09:12→21:09)
[2020-01-19] MEDS: VERAPAMIL HCL 120 MG ER TABLET PO SCH (09:17)
[2020-01-19 11:23] LABS: GLUCOMETER DEV NAME(LOC) BV3N.; GLUCOSE,POINT OF CARE 135 MG/DL (70-110)
[2020-01-19 14:21] VITALS: BP 125/78
[2020-01-19 14:24] VITALS: BP 130/75
[2020-01-19 16:08] VITALS: BP 136/78
[2020-01-19] MEDS: INSULIN LISPRO 100 UNITS/ML SQ PRN ×2 (16:56→21:17)
[2020-01-19 17:20] LABS: GLUCOMETER DEV NAME(LOC) BV3N.; GLUCOSE,POINT OF CARE 202 MG/DL (70-110)
[2020-01-19] MEDS: ZOLPIDEM TARTRATE 10 MG TABLET PO PRN (21:10)
[2020-01-19] MEDS: SIMVASTATIN 10 MG TABLET PO SCH (21:10)
[2020-01-19] MEDS: MIRTAZAPINE 15 MG TABLET PO SCH (21:10)
[2020-01-19 22:11] LABS: GLUCOMETER DEV NAME(LOC) BV3N.; GLUCOSE,POINT OF CARE 167 MG/DL (70-110)
[2020-01-20 00:52] VITALS: BP 132/71
[2020-01-20 00:58] VITALS: BP 132/71
[2020-01-20] MEDS: TraMADol HCL 50 MG TABLET PO PRN ×2 (03:07→16:01)
[2020-01-20] MEDS: MetFORMIN HCL 500 MG TABLET PO SCH ×2 (06:12→16:14)
[2020-01-20] MEDS: INSULIN LISPRO 100 UNITS/ML SQ PRN ×3 (06:15→21:07)
[2020-01-20 06:17] LABS: GLUCOMETER DEV NAME(LOC) BV3N.; GLUCOSE,POINT OF CARE 164 MG/DL (70-110)
[2020-01-20] MEDS ORDERED: DIAZEPAM 5 MG TABLET PO PRN (07:00)
[2020-01-20] MEDS: PANTOPRAZOLE SODIUM 40 MG DR TABLET PO SCH (08:42)
[2020-01-20] MEDS: LevETIRAcetam 500 MG TABLET PO SCH ×2 (08:42→16:14)
[2020-01-20] MEDS: GABAPENTIN 400 MG CAPSULE PO SCH ×4 (08:42→20:39)
[2020-01-20] MEDS: QUEtiapine FUMARATE 100 MG TABLET PO SCH ×2 (08:43→16:14)
[2020-01-20] MEDS: DIAZEPAM 5 MG TABLET PO SCH ×4 (08:43→20:39)
[2020-01-20] MEDS: LISINOPRIL 10 MG TABLET PO SCH (08:43)
[2020-01-20] MEDS: VERAPAMIL HCL 120 MG ER TABLET PO SCH (08:43)
[2020-01-20 08:44] VITALS: BP 117/76
[2020-01-20 08:45] VITALS: BP 117/76
[2020-01-20] MEDS: NICOTINE 14 MG/24 HOUR PATCH TD PRN (16:14)
[2020-01-20 16:18] VITALS: BP 122/76
[2020-01-20 16:40] VITALS: BP 122/76
[2020-01-20 17:27] LABS: GLUCOMETER DEV NAME(LOC) BV3N.; GLUCOSE,POINT OF CARE 205 MG/DL (70-110)
[2020-01-20] MEDS: SIMVASTATIN 10 MG TABLET PO SCH (20:39)
[2020-01-20] MEDS: ZOLPIDEM TARTRATE 10 MG TABLET PO PRN (20:39)
[2020-01-20] MEDS: MIRTAZAPINE 15 MG TABLET PO SCH (20:39)
[2020-01-21] VITALS: BP 116/82
[2020-01-21 05:20] VITALS: BP 120/80
[2020-01-21 05:59] LABS: GLUCOMETER DEV NAME(LOC) BV3N.; GLUCOSE,POINT OF CARE 133 MG/DL (70-110)
[2020-01-21] MEDS: MetFORMIN HCL 500 MG TABLET PO SCH ×2 (06:07→16:11)
[2020-01-21] MEDS: PANTOPRAZOLE SODIUM 40 MG DR TABLET PO SCH (08:35)
[2020-01-21] MEDS: VERAPAMIL HCL 120 MG ER TABLET PO SCH (08:35)
[2020-01-21] MEDS: QUEtiapine FUMARATE 100 MG TABLET PO SCH ×2 (08:35→16:11)
[2020-01-21] MEDS: LISINOPRIL 10 MG TABLET PO SCH (08:35)
[2020-01-21] MEDS: GABAPENTIN 400 MG CAPSULE PO SCH ×4 (08:35→20:44)
[2020-01-21] MEDS: LevETIRAcetam 500 MG TABLET PO SCH ×2 (08:41→16:11)
[2020-01-21 09:06] VITALS: BP 103/62
[2020-01-21 10:48] VITALS: BP 108/62
[2020-01-21] MEDS: INSULIN LISPRO 100 UNITS/ML SQ PRN ×3 (11:37→20:56)
[2020-01-21 15:09] LABS: GLUCOMETER DEV NAME(LOC) BV3N.; GLUCOSE,POINT OF CARE 241 MG/DL (70-110)
[2020-01-21] MEDS: DIAZEPAM 5 MG TABLET PO PRN (16:11)
[2020-01-21 16:12] VITALS: BP 123/75
[2020-01-21 16:30] VITALS: BP 123/75
[2020-01-21 16:33] LABS: GLUCOMETER DEV NAME(LOC) BV3N.; GLUCOSE,POINT OF CARE 219 MG/DL (70-110)
[2020-01-21] MEDS: MIRTAZAPINE 15 MG TABLET PO SCH (20:44)
[2020-01-21] MEDS: SIMVASTATIN 10 MG TABLET PO SCH (20:44)
[2020-01-21 21:55] LABS: GLUCOMETER DEV NAME(LOC) BV3N.; GLUCOSE,POINT OF CARE 183 MG/DL (70-110)
[2020-01-22 03:01] VITALS: BP 126/78
[2020-01-22] MEDS: IBUPROFEN 400 MG TABLET PO PRN (03:11)
[2020-01-22] MEDS: DIAZEPAM 5 MG TABLET PO PRN (03:11)
[2020-01-22] MEDS: MetFORMIN HCL 500 MG TABLET PO SCH ×2 (06:26→17:11)
[2020-01-22 06:27] LABS: GLUCOMETER DEV NAME(LOC) BV3N.; GLUCOSE,POINT OF CARE 200 MG/DL (70-110)
[2020-01-22] MEDS: INSULIN LISPRO 100 UNITS/ML SQ PRN ×4 (06:31→20:37)
[2020-01-22 06:32] VITALS: BP 118/71
[2020-01-22] MEDS: PANTOPRAZOLE SODIUM 40 MG DR TABLET PO SCH (08:15)
[2020-01-22] MEDS: LISINOPRIL 10 MG TABLET PO SCH (08:15)
[2020-01-22] MEDS: VERAPAMIL HCL 120 MG ER TABLET PO SCH (08:15)
[2020-01-22] MEDS: LevETIRAcetam 500 MG TABLET PO SCH ×2 (08:15→17:10)
[2020-01-22] MEDS: QUEtiapine FUMARATE 100 MG TABLET PO SCH ×2 (08:15→17:10)
[2020-01-22] MEDS: GABAPENTIN 400 MG CAPSULE PO SCH ×4 (08:15→20:32)
[2020-01-22 11:00] LABS: GLUCOMETER DEV NAME(LOC) BV3N.; GLUCOSE,POINT OF CARE 235 MG/DL (70-110)
[2020-01-22] MEDS: NICOTINE 14 MG/24 HOUR PATCH TD PRN (13:27)
[2020-01-22] MEDS: TraMADol HCL 50 MG TABLET PO PRN (13:28)
[2020-01-22 14:29] VITALS: BP 121/70
[2020-01-22 16:20] VITALS: BP 133/76
[2020-01-22 18:23] LABS: GLUCOMETER DEV NAME(LOC) BV3N.; GLUCOSE,POINT OF CARE 330 MG/DL (70-110)
[2020-01-22] MEDS: MIRTAZAPINE 15 MG TABLET PO SCH (20:32)
[2020-01-22] MEDS: SIMVASTATIN 10 MG TABLET PO SCH (20:32)
[2020-01-22 21:42] LABS: GLUCOMETER DEV NAME(LOC) BV3N.; GLUCOSE,POINT OF CARE 328 MG/DL (70-110)
[2020-01-22] MEDS: ZOLPIDEM TARTRATE 10 MG TABLET PO PRN (23:04)
[2020-01-23 05:45] VITALS: BP 129/71
[2020-01-23] MEDS: TraMADol HCL 50 MG TABLET PO PRN (05:48)
[2020-01-23 06:20] LABS: GLUCOMETER DEV NAME(LOC) BV3N.; GLUCOSE,POINT OF CARE 180 MG/DL (70-110)
[2020-01-23] MEDS: INSULIN LISPRO 100 UNITS/ML SQ PRN ×2 (06:29→11:13)
[2020-01-23] MEDS ORDERED: MetFORMIN HCL 500 MG TABLET PO SCH (07:00)
[2020-01-23 08:13] VITALS: BP 128/66
[2020-01-23] MEDS: LISINOPRIL 10 MG TABLET PO SCH (08:46)
[2020-01-23] MEDS: QUEtiapine FUMARATE 100 MG TABLET PO SCH (08:46)
[2020-01-23] MEDS: PANTOPRAZOLE SODIUM 40 MG DR TABLET PO SCH (08:46)
[2020-01-23] MEDS: LevETIRAcetam 500 MG TABLET PO SCH (08:46)
[2020-01-23] MEDS: GABAPENTIN 400 MG CAPSULE PO SCH ×2 (08:46→13:26)
[2020-01-23] MEDS: VERAPAMIL HCL 120 MG ER TABLET PO SCH (09:11)
[2020-01-23 11:19] LABS: GLUCOMETER DEV NAME(LOC) BV3N.; GLUCOSE,POINT OF CARE 203 MG/DL (70-110)
[2020-01-23] MEDS ORDERED: SIMV-259 PO (13:39)
== END 2020-01-23 14:00 | disposition home or self-care (01) | DRG 751 ==
LOC: EMS 07:32 → B3A 11:35
PROVIDERS: ADMIT Psychiatry & Neurology Child & Adolescent Psychiatry; ATTEND Psychiatry & Neurology Child & Adolescent Psychiatry
DX: F33.2 Major depressive disorder, recurrent severe without psychotic features (principal); E11.40 Type 2 diabetes mellitus with diabetic neuropathy, unspecified; E27.8 Other specified disorders of adrenal gland; E78.00 Pure hypercholesterolemia, unspecified; E87.6 Hypokalemia; F10.129 Alcohol abuse with intoxication, unspecified; G40.909 Epilepsy, unspecified, not intractable, without status epilepticus; I10 Essential (primary) hypertension; I48.0 Paroxysmal atrial fibrillation; K86.1 Other chronic pancreatitis; R45.851 Suicidal ideations; F19.10 Other psychoactive substance abuse, uncomplicated; Z87.11 Personal history of peptic ulcer disease
CPT/HCPCS: 71101; 74177; 84132; 84439; 84443; G0480; J3535; J7050

== ENCOUNTER 2020-02-01 18:50 | Inpatient (IN) | payer MEDICAID ==
[~2020-02-01] VITALS: Ht 167.6 cm; Wt 96.0 kg
[~2020-02-01 18:50] MED LIST changes: -LISI-660 PO; -NALT50TA PO; -RAMI1.258 PO
[2020-02-01 21:34] LABS: BASOPHILS % (AUTO) 0.2 % (0.0-2.0); EOSINOPHILS % (AUTO) 0.7 % (1.0-6.0); HEMATOCRIT 41.8 % (41-53); HEMOGLOBIN 13.4 g/dL (13.5-17.5); LYMPHOCYTES # (AUTO) 1.7 K/uL (1.0-4.8); LYMPHOCYTES % (AUTO) 28.2 % (22.0-44.0); MEAN CORPUSCULAR HEMOGLOBIN 26.8 pg (26.0-34.0); MEAN CORPUSCULAR HGB CONC 32.1 G/dL (31.0-37.0); MEAN CORPUSCULAR VOLUME 84 fL (80-100); MONOCYTES # (AUTO) 0.4 K/uL (0.1-1.0); MONOCYTES % (AUTO) 6.7 % (2.0-9.0); NEUTROPHILS % (AUTO) 64.2 % (40.0-70.0); PLATELET COUNT (AUTO) 256 K/uL (150-450); RED BLOOD CELL COUNT(AUTO) 5.01 MIL/uL (4.50-5.90); RED CELL DISTRIBUTION WIDTH 18.2 % (11.5-14.5)
[2020-02-01 21:50] LABS: ANION GAP 9 mmol/L (8-16); CALCIUM, TOTAL 8.9 mg/dL (8.8-10.5); CARBON DIOXIDE 29 mmol/L (22-29); CHLORIDE 105 mmol/L (98-107); CREATININE 0.56 mg/dL (0.60-1.30); GLOMERULAR FILTR. RATE CALC > 60 mL/min (>60); GLUCOSE,RANDOM 104 mg/dL (70-110); POTASSIUM 3.4 mmol/L (3.5-5.1); SODIUM SERUM 143 mmol/L (136-145); UREA NITROGEN, BLOOD 6 mg/dL (7-18)
[2020-02-01 21:55] LABS: ALANINE AMINOTRANSFERASE 66 U/L (12-78); ALBUMIN 3.5 g/dL (3.4-5.0); ALKALINE PHOSPHATASE 79 U/L (46-116); ASPARTATE AMINOTRANSFERASE 42 U/L (15-37); BILIRUBIN,TOTAL 0.6 mg/dL (0.1-1.0); TOTAL PROTEIN, SERUM 7.5 g/dL (6.4-8.2)
[2020-02-01 22:12] LABS: AMPHET/METH SCREEN,URINE NEGATIVE (NEGATIVE); BARBITURATE SCREEN, URINE NEGATIVE (NEGATIVE); BENZODIAZEPINES SCREEN,URINE POSITIVE (NEGATIVE); CANNABINOID SCREEN,URINE NEGATIVE (NEGATIVE); COCAINE SCREEN,URINE NEGATIVE (NEGATIVE); METHADONE SCREEN, URINE NEGATIVE (NEGATIVE); OPIATE SCREEN,URINE NEGATIVE (NEGATIVE)
[2020-02-01 22:13] LABS: PHENCYCLIDINE SCREEN,URINE NEGATIVE (NEGATIVE)
[2020-02-02] VITALS (8 sets, daily range): BP systolic 123–136; BP diastolic 60–96
[2020-02-02 02:57] LABS: GLUCOSE,POINT OF CARE 201 MG/DL (70-110)
[2020-02-02] MEDS: LORazepam 2 MG TABLET PO PRN ×3 (04:47→15:05)
[2020-02-02] MEDS ORDERED: PNEUMOCOCCAL VACCINE POLYVALENT 0.5 ML VIAL [PPSV23] IM ONE (06:15)
[2020-02-02] MEDS ORDERED: LOPERAMIDE HCL 2 MG CAPSULE PO PRN (08:30)
[2020-02-02] MEDS ORDERED: DOCUSATE SODIUM 100 MG CAPSULE PO PRN (08:30)
[2020-02-02] MEDS ORDERED: NICOTINE 14 MG/24 HOUR PATCH TD PRN (08:30)
[2020-02-02] MEDS ORDERED: ACETAMINOPHEN 325 MG TABLET PO PRN (08:30)
[2020-02-02] MEDS ORDERED: GuaiFENesin/D-METHORPHAN [SUGAR-FREE] 200-20MG/10 ML SYRUP UDCUP PO PRN (08:30)
[2020-02-02] MEDS ORDERED: ONDANSETRON HCL 4 MG TABLET PO PRN (08:30)
[2020-02-02] MEDS ORDERED: ALBUTEROL SULFATE HFA 90 MCG/PUFF 8 GM INHALER IH PRN (08:30)
[2020-02-02] MEDS ORDERED: MAG HYDROX/AL HYDROX/SIMETH ES 30 ML SUSPENSION UDCUP PO PRN (08:30)
[2020-02-02] MEDS ORDERED: CloNIDine HCL 0.1 MG TABLET PO PRN (08:30)
[2020-02-02] MEDS ORDERED: PETROLATUM,WHITE 28 GM JELLY TP PRN (08:30)
[2020-02-02] MEDS ORDERED: MAGNESIUM HYDROXIDE SUSPENSION 30 ML UDCUP PO PRN (08:30)
[2020-02-02] MEDS: LevETIRAcetam 500 MG TABLET PO SCH ×2 (09:24→17:13)
[2020-02-02] MEDS: HALOPERIDOL 5 MG TABLET PO PRN (09:24)
[2020-02-02] MEDS: LISINOPRIL 10 MG TABLET PO SCH (09:24)
[2020-02-02] MEDS: GABAPENTIN 400 MG CAPSULE PO SCH ×4 (09:24→20:02)
[2020-02-02] MEDS: PANTOPRAZOLE SODIUM 40 MG DR TABLET PO SCH (09:24)
[2020-02-02] MEDS ORDERED: POTASSIUM CHLORIDE 20 MEQ ER TABLET PO ONE (12:00)
[2020-02-02] MEDS: VERAPAMIL HCL 120 MG ER TABLET PO SCH (12:48)
[2020-02-02] MEDS: SERTRALINE HCL 100 MG TABLET PO SCH (17:13)
[2020-02-02] MEDS: MetFORMIN HCL 500 MG TABLET PO SCH (17:13)
[2020-02-02] MEDS: MIRTAZAPINE 15 MG TABLET PO SCH (20:02)
[2020-02-02] MEDS: SIMVASTATIN 10 MG TABLET PO SCH (20:02)
[2020-02-03] VITALS (7 sets, daily range): BP systolic 109–128; BP diastolic 62–78
[2020-02-03] MEDS: MetFORMIN HCL 500 MG TABLET PO SCH ×2 (06:06→16:43)
[2020-02-03 08:24] LABS: CHOL/HDL RATIO 1.7 (4.2-7.3)
[2020-02-03] MEDS: VERAPAMIL HCL 120 MG ER TABLET PO SCH (09:03)
[2020-02-03] MEDS: LISINOPRIL 10 MG TABLET PO SCH (09:04)
[2020-02-03] MEDS: SERTRALINE HCL 100 MG TABLET PO SCH ×2 (09:04→16:43)
[2020-02-03] MEDS: PANTOPRAZOLE SODIUM 40 MG DR TABLET PO SCH (09:04)
[2020-02-03] MEDS: GABAPENTIN 400 MG CAPSULE PO SCH ×4 (09:04→20:00)
[2020-02-03] MEDS: LevETIRAcetam 500 MG TABLET PO SCH ×2 (09:04→16:43)
[2020-02-03] MEDS: LORazepam 2 MG TABLET PO PRN ×3 (10:21→19:59)
[2020-02-03] MEDS: MIRTAZAPINE 15 MG TABLET PO SCH (20:00)
[2020-02-03] MEDS: SIMVASTATIN 10 MG TABLET PO SCH (20:00)
[2020-02-04] MEDS: LORazepam 2 MG TABLET PO PRN ×3 (02:01→16:42)
[2020-02-04 02:15] VITALS: BP 133/96
[2020-02-04 04:12] VITALS: BP 133/96
[2020-02-04] MEDS: MetFORMIN HCL 500 MG TABLET PO SCH ×2 (06:55→16:45)
[2020-02-04 08:35] VITALS: BP 116/66
[2020-02-04] MEDS: SERTRALINE HCL 100 MG TABLET PO SCH ×2 (08:39→16:45)
[2020-02-04] MEDS: LevETIRAcetam 500 MG TABLET PO SCH ×2 (08:39→16:45)
[2020-02-04] MEDS: VERAPAMIL HCL 120 MG ER TABLET PO SCH (08:39)
[2020-02-04] MEDS: LISINOPRIL 10 MG TABLET PO SCH (08:39)
[2020-02-04] MEDS: GABAPENTIN 400 MG CAPSULE PO SCH ×4 (08:39→20:57)
[2020-02-04] MEDS: PANTOPRAZOLE SODIUM 40 MG DR TABLET PO SCH (08:39)
[2020-02-04 09:55] VITALS: BP 116/66
[2020-02-04 16:00] VITALS: BP 110/80
[2020-02-04 17:13] VITALS: BP 110/80
[2020-02-04] MEDS: MIRTAZAPINE 15 MG TABLET PO SCH (20:57)
[2020-02-04] MEDS: SIMVASTATIN 10 MG TABLET PO SCH (20:58)
[2020-02-04] MEDS: ZOLPIDEM TARTRATE 10 MG TABLET PO PRN (20:58)
[2020-02-04 21:58] LABS: GLUCOMETER DEV NAME(LOC) BV2S.; GLUCOSE,POINT OF CARE 147 MG/DL (70-110)
[2020-02-05] VITALS (7 sets, daily range): BP systolic 107–129; BP diastolic 67–83
[2020-02-05] MEDS: IBUPROFEN 400 MG TABLET PO PRN (05:55)
[2020-02-05 06:07] LABS: GLUCOMETER DEV NAME(LOC) BV2S.; GLUCOSE,POINT OF CARE 118 MG/DL (70-110)
[2020-02-05] MEDS: MetFORMIN HCL 500 MG TABLET PO SCH ×2 (06:45→16:13)
[2020-02-05] MEDS: LevETIRAcetam 500 MG TABLET PO SCH ×2 (08:08→16:14)
[2020-02-05] MEDS: VERAPAMIL HCL 120 MG ER TABLET PO SCH (08:08)
[2020-02-05] MEDS: GABAPENTIN 400 MG CAPSULE PO SCH ×4 (08:09→20:55)
[2020-02-05] MEDS: PANTOPRAZOLE SODIUM 40 MG DR TABLET PO SCH (08:09)
[2020-02-05] MEDS: LISINOPRIL 10 MG TABLET PO SCH (08:09)
[2020-02-05] MEDS: SERTRALINE HCL 100 MG TABLET PO SCH ×2 (08:09→16:14)
[2020-02-05] MEDS: LORazepam 2 MG TABLET PO PRN ×3 (08:32→21:53)
[2020-02-05] MEDS: HALOPERIDOL 5 MG TABLET PO PRN ×2 (14:40→21:54)
[2020-02-05] MEDS: MIRTAZAPINE 15 MG TABLET PO SCH (20:55)
[2020-02-05] MEDS: SIMVASTATIN 10 MG TABLET PO SCH (20:55)
[2020-02-06 01:30] VITALS: BP 110/70
[2020-02-06 06:07] VITALS: BP 120/73
[2020-02-06] MEDS: MetFORMIN HCL 500 MG TABLET PO SCH ×2 (06:39→16:41)
[2020-02-06 08:03] VITALS: BP 105/63
[2020-02-06] MEDS: LISINOPRIL 10 MG TABLET PO SCH (09:00)
[2020-02-06] MEDS: VERAPAMIL HCL 120 MG ER TABLET PO SCH (09:00)
[2020-02-06] MEDS: GABAPENTIN 400 MG CAPSULE PO SCH ×4 (09:36→20:14)
[2020-02-06] MEDS: LevETIRAcetam 500 MG TABLET PO SCH ×2 (09:36→16:41)
[2020-02-06] MEDS: FOLIC ACID 1 MG TABLET PO SCH (09:36)
[2020-02-06] MEDS: PANTOPRAZOLE SODIUM 40 MG DR TABLET PO SCH (09:36)
[2020-02-06] MEDS: SERTRALINE HCL 100 MG TABLET PO SCH ×2 (09:36→16:41)
[2020-02-06] MEDS: HALOPERIDOL 5 MG TABLET PO PRN ×2 (09:42→17:10)
[2020-02-06 12:20] VITALS: BP 112/64
[2020-02-06] MEDS: LORazepam 2 MG TABLET PO PRN ×2 (12:21→17:10)
[2020-02-06 16:02] VITALS: BP 115/69
[2020-02-06] MEDS: SIMVASTATIN 10 MG TABLET PO SCH (20:14)
[2020-02-06] MEDS: MIRTAZAPINE 15 MG TABLET PO SCH (20:14)
[2020-02-07] MEDS: MetFORMIN HCL 500 MG TABLET PO SCH ×2 (06:48→16:46)
[2020-02-07 07:27] VITALS: BP 119/70
[2020-02-07 08:36] VITALS: BP 108/60
[2020-02-07] MEDS: FOLIC ACID 1 MG TABLET PO SCH (08:58)
[2020-02-07] MEDS: GABAPENTIN 400 MG CAPSULE PO SCH ×4 (08:58→20:15)
[2020-02-07] MEDS: SERTRALINE HCL 100 MG TABLET PO SCH ×2 (08:58→16:46)
[2020-02-07] MEDS: LevETIRAcetam 500 MG TABLET PO SCH ×2 (08:58→16:46)
[2020-02-07] MEDS: PANTOPRAZOLE SODIUM 40 MG DR TABLET PO SCH (08:58)
[2020-02-07] MEDS: VERAPAMIL HCL 120 MG ER TABLET PO SCH (08:59)
[2020-02-07] MEDS: LISINOPRIL 10 MG TABLET PO SCH (08:59)
[2020-02-07] MEDS: LORazepam 2 MG TABLET PO PRN ×3 (10:07→20:43)
[2020-02-07] MEDS: HALOPERIDOL 5 MG TABLET PO PRN ×2 (10:11→20:43)
[2020-02-07] MEDS: IBUPROFEN 400 MG TABLET PO PRN (11:58)
[2020-02-07 16:18] VITALS: BP 111/74
[2020-02-07] MEDS: SIMVASTATIN 10 MG TABLET PO SCH (20:15)
[2020-02-07] MEDS: MIRTAZAPINE 15 MG TABLET PO SCH (20:15)
[2020-02-07] MEDS: ZOLPIDEM TARTRATE 10 MG TABLET PO PRN (22:01)
[2020-02-08 06:39] VITALS: BP 116/67
[2020-02-08] MEDS: MetFORMIN HCL 500 MG TABLET PO SCH ×2 (06:46→16:51)
[2020-02-08] MEDS: GABAPENTIN 400 MG CAPSULE PO SCH ×4 (08:13→20:09)
[2020-02-08] MEDS: LISINOPRIL 10 MG TABLET PO SCH (08:13)
[2020-02-08] MEDS: LevETIRAcetam 500 MG TABLET PO SCH ×2 (08:13→16:51)
[2020-02-08] MEDS: VERAPAMIL HCL 120 MG ER TABLET PO SCH (08:13)
[2020-02-08] MEDS: FOLIC ACID 1 MG TABLET PO SCH (08:13)
[2020-02-08] MEDS: PANTOPRAZOLE SODIUM 40 MG DR TABLET PO SCH (08:14)
[2020-02-08] MEDS: SERTRALINE HCL 100 MG TABLET PO SCH ×2 (08:14→16:51)
[2020-02-08 08:19] VITALS: BP 141/87
[2020-02-08] MEDS: LORazepam 2 MG TABLET PO PRN ×2 (11:57→17:33)
[2020-02-08] MEDS: HALOPERIDOL 5 MG TABLET PO PRN (13:45)
[2020-02-08 16:35] VITALS: BP 110/63
[2020-02-08] MEDS: MIRTAZAPINE 15 MG TABLET PO SCH (20:09)
[2020-02-08] MEDS: SIMVASTATIN 10 MG TABLET PO SCH (20:09)
[2020-02-09] VITALS: BP 120/71
[2020-02-09] MEDS: MetFORMIN HCL 500 MG TABLET PO SCH (06:44)
[2020-02-09] MEDS: LORazepam 2 MG TABLET PO PRN ×2 (06:58→12:44)
[2020-02-09] MEDS: IBUPROFEN 400 MG TABLET PO PRN (06:58)
[2020-02-09 08:48] VITALS: BP 100/60
[2020-02-09] MEDS: GABAPENTIN 400 MG CAPSULE PO SCH ×2 (08:54→12:35)
[2020-02-09] MEDS: SERTRALINE HCL 100 MG TABLET PO SCH (08:54)
[2020-02-09] MEDS: PANTOPRAZOLE SODIUM 40 MG DR TABLET PO SCH (08:54)
[2020-02-09] MEDS: LevETIRAcetam 500 MG TABLET PO SCH (08:54)
[2020-02-09] MEDS: FOLIC ACID 1 MG TABLET PO SCH (08:54)
[2020-02-09] MEDS: LISINOPRIL 10 MG TABLET PO SCH (08:55)
[2020-02-09] MEDS: VERAPAMIL HCL 120 MG ER TABLET PO SCH (08:55)
== END 2020-02-09 15:45 | disposition home or self-care (01) | DRG 751 ==
LOC: EMS 18:51 → B2S 02-02 00:52
PROVIDERS: ADMIT Psychiatry & Neurology Child & Adolescent Psychiatry; ATTEND Psychiatry & Neurology Child & Adolescent Psychiatry
DX: F33.2 Major depressive disorder, recurrent severe without psychotic features (principal); G40.909 Epilepsy, unspecified, not intractable, without status epilepticus; D64.9 Anemia, unspecified; E11.9 Type 2 diabetes mellitus without complications; E78.00 Pure hypercholesterolemia, unspecified; E78.5 Hyperlipidemia, unspecified; E87.6 Hypokalemia; F10.229 Alcohol dependence with intoxication, unspecified; I10 Essential (primary) hypertension; I48.91 Unspecified atrial fibrillation; K21.9 Gastro-esophageal reflux disease without esophagitis; Y90.8 Blood alcohol level of 240 mg/100 ml or more; Z79.899 Other long term (current) drug therapy
CPT/HCPCS: 84132; 87081; 87426; G0480

== ENCOUNTER 2020-07-02 18:15 | Inpatient (IN) | payer MEDICAID ==
[~2020-07-02] VITALS: Ht 170.2 cm; Wt 111.7 kg
[~2020-07-02 18:15] MED LIST changes: +LEVE500T20 PO; -LEVE500T53 PO; -LISI-661 PO; +LISI-893 PO; +METF-1211 PO; -METF-960 PO; +SERT-162 PO; -SERT100T12 PO; -VERA120T33 PO; +VERA120T91 PO
[2020-07-03 03:10] VITALS: BP 140/91
[2020-07-03] MEDS ORDERED: INFLUENZA VIRUS VACCINE QVS 2020-21 (6MO+)/PF 60 MCG/0.5 ML SYRINGE IM ONE (03:45)
[2020-07-03 08:18] VITALS: BP 129/74
[2020-07-03] MEDS: LORazepam 2 MG TABLET PO PRN ×3 (09:40→21:35)
[2020-07-03 11:17] LABS: GLUCOMETER DEV NAME(LOC) BV3N.; GLUCOSE,POINT OF CARE 304 MG/DL (70-110)
[2020-07-03] MEDS ORDERED: MAGNESIUM HYDROXIDE SUSPENSION 30 ML UDCUP PO PRN (12:45)
[2020-07-03] MEDS ORDERED: PETROLATUM,WHITE 28 GM JELLY TP PRN (12:45)
[2020-07-03] MEDS ORDERED: DOCUSATE SODIUM 100 MG CAPSULE PO PRN (12:45)
[2020-07-03] MEDS ORDERED: LOPERAMIDE HCL 2 MG CAPSULE PO PRN (12:45)
[2020-07-03] MEDS ORDERED: MAG HYDROX/AL HYDROX/SIMETH ES 30 ML SUSPENSION UDCUP PO PRN (12:45)
[2020-07-03] MEDS ORDERED: CloNIDine HCL 0.1 MG TABLET PO PRN (12:45)
[2020-07-03] MEDS ORDERED: NICOTINE 14 MG/24 HOUR PATCH TD PRN (12:45)
[2020-07-03] MEDS ORDERED: ONDANSETRON HCL 4 MG TABLET PO PRN (12:45)
[2020-07-03] MEDS ORDERED: ACETAMINOPHEN 325 MG TABLET PO PRN (12:45)
[2020-07-03] MEDS ORDERED: GuaiFENesin/D-METHORPHAN [SUGAR-FREE] 200-20MG/10 ML SYRUP UDCUP PO PRN (12:45)
[2020-07-03] MEDS ORDERED: ALBUTEROL SULFATE HFA 90 MCG/PUFF 8 GM INHALER IH PRN (12:45)
[2020-07-03] MEDS: GABAPENTIN 400 MG CAPSULE PO SCH ×3 (12:50→21:33)
[2020-07-03 13:50] VITALS: BP 136/82
[2020-07-03] MEDS: IBUPROFEN 400 MG TABLET PO PRN (13:50)
[2020-07-03 14:00] VITALS: BP 136/82
[2020-07-03 16:10] VITALS: BP 157/88
[2020-07-03] MEDS: LevETIRAcetam 500 MG TABLET PO SCH (16:50)
[2020-07-03] MEDS: LITHIUM CARBONATE 300 MG CAPSULE PO SCH (16:50)
[2020-07-03] MEDS: MetFORMIN HCL 500 MG TABLET PO SCH ×2 (17:00→18:09)
[2020-07-03] MEDS ORDERED: MetFORMIN HCL 500 MG TABLET PO SCH (17:00)
[2020-07-03] MEDS: SIMVASTATIN 10 MG TABLET PO SCH (21:33)
[2020-07-03] MEDS: QUEtiapine FUMARATE 200 MG TABLET PO SCH (21:33)
[2020-07-04 05:46] VITALS: BP 142/83
[2020-07-04] MEDS: MetFORMIN HCL 500 MG TABLET PO SCH ×2 (06:48→16:28)
[2020-07-04] MEDS: LORazepam 2 MG TABLET PO PRN ×3 (07:16→16:27)
[2020-07-04 08:26] VITALS: BP 131/84
[2020-07-04] MEDS: GABAPENTIN 400 MG CAPSULE PO SCH ×4 (08:27→20:53)
[2020-07-04] MEDS: PANTOPRAZOLE SODIUM 40 MG DR TABLET PO SCH (08:27)
[2020-07-04] MEDS: LITHIUM CARBONATE 300 MG CAPSULE PO SCH ×2 (08:27→16:28)
[2020-07-04] MEDS: LevETIRAcetam 500 MG TABLET PO SCH ×2 (08:27→16:28)
[2020-07-04] MEDS: LISINOPRIL 10 MG TABLET PO SCH (08:27)
[2020-07-04] MEDS: VERAPAMIL HCL 120 MG ER TABLET PO SCH (08:27)
[2020-07-04] MEDS: IBUPROFEN 400 MG TABLET PO PRN (09:26)
[2020-07-04 16:34] VITALS: BP 118/69
[2020-07-04] MEDS: SIMVASTATIN 10 MG TABLET PO SCH (20:07)
[2020-07-04] MEDS: QUEtiapine FUMARATE 200 MG TABLET PO SCH (20:07)
[2020-07-04] MEDS: ZOLPIDEM TARTRATE 10 MG TABLET PO PRN (20:07)
[2020-07-04] MEDS: HALOPERIDOL 5 MG TABLET PO PRN (20:07)
[2020-07-05 02:17] VITALS: BP 129/76
[2020-07-05] MEDS: MetFORMIN HCL 500 MG TABLET PO SCH ×3 (06:27→16:35)
[2020-07-05] MEDS: LORazepam 2 MG TABLET PO PRN ×3 (06:41→18:50)
[2020-07-05 08:21] VITALS: BP 123/65
[2020-07-05] MEDS: LevETIRAcetam 500 MG TABLET PO SCH ×2 (09:20→16:35)
[2020-07-05] MEDS: LISINOPRIL 10 MG TABLET PO SCH (09:20)
[2020-07-05] MEDS: PANTOPRAZOLE SODIUM 40 MG DR TABLET PO SCH (09:20)
[2020-07-05] MEDS: LITHIUM CARBONATE 300 MG CAPSULE PO SCH ×2 (09:20→16:35)
[2020-07-05] MEDS: GABAPENTIN 400 MG CAPSULE PO SCH ×4 (09:20→20:11)
[2020-07-05] MEDS: VERAPAMIL HCL 120 MG ER TABLET PO SCH (09:20)
[2020-07-05] MEDS: HALOPERIDOL 5 MG TABLET PO PRN (11:10)
[2020-07-05] MEDS: IBUPROFEN 400 MG TABLET PO PRN (11:10)
[2020-07-05 16:14] VITALS: BP 120/74
[2020-07-05] MEDS: QUEtiapine FUMARATE 200 MG TABLET PO SCH (20:09)
[2020-07-05] MEDS: SIMVASTATIN 10 MG TABLET PO SCH (20:09)
[2020-07-06 00:56] VITALS: BP 147/82
[2020-07-06] MEDS: LORazepam 2 MG TABLET PO PRN ×2 (02:14→06:13)
[2020-07-06] MEDS: ZOLPIDEM TARTRATE 10 MG TABLET PO PRN (02:14)
[2020-07-06] MEDS: MetFORMIN HCL 500 MG TABLET PO SCH (06:13)
[2020-07-06] MEDS: IBUPROFEN 400 MG TABLET PO PRN (06:13)
[2020-07-06 08:13] VITALS: BP 122/71
[2020-07-06] MEDS: PANTOPRAZOLE SODIUM 40 MG DR TABLET PO SCH (09:13)
[2020-07-06] MEDS: LevETIRAcetam 500 MG TABLET PO SCH (09:13)
[2020-07-06] MEDS: GABAPENTIN 400 MG CAPSULE PO SCH ×2 (09:13→13:00)
[2020-07-06] MEDS: VERAPAMIL HCL 120 MG ER TABLET PO SCH (09:13)
[2020-07-06] MEDS: LISINOPRIL 10 MG TABLET PO SCH (09:13)
[2020-07-06] MEDS: LITHIUM CARBONATE 300 MG CAPSULE PO SCH (09:13)
[2020-07-06] MEDS ORDERED: LITH300C3 PO (09:22)
[2020-07-06] MEDS ORDERED: QUET200T30 PO (09:22)
[2020-08-14] MEDS ORDERED: METF-1211 PO (17:24)
[2020-08-14] MEDS ORDERED: VERA120T91 PO (17:26)
== END 2020-07-06 12:45 | disposition home or self-care (01) | DRG 750 ==
LOC: B3A 07-03 02:03
PROVIDERS: ADMIT Psychiatry & Neurology Psychiatry; ATTEND Psychiatry & Neurology Psychiatry
DX: F25.0 Schizoaffective disorder, bipolar type (principal); R45.851 Suicidal ideations; I10 Essential (primary) hypertension; K21.9 Gastro-esophageal reflux disease without esophagitis; E11.9 Type 2 diabetes mellitus without complications; K86.1 Other chronic pancreatitis; G40.909 Epilepsy, unspecified, not intractable, without status epilepticus; F10.20 Alcohol dependence, uncomplicated; I48.91 Unspecified atrial fibrillation; Y90.8 Blood alcohol level of 240 mg/100 ml or more; Z65.3 Problems related to other legal circumstances; Z79.899 Other long term (current) drug therapy; Z91.5 Personal history of self-harm
CPT/HCPCS: 82962

== ENCOUNTER 2020-08-11 09:46 | Inpatient (IN) | payer MEDICAID ==
[~2020-08-11] VITALS: Ht 170.2 cm; Wt 105.5 kg
[~2020-08-11 09:46] MED LIST changes: -LEVE500T20 PO; +LEVE500T53 PO; +LITH300C3 PO; -METF-1211 PO; +METF-960 PO; -MIRT-89 PO; +QUET200T29 PO; -SERT-162 PO; +VERA120T33 PO; -VERA120T91 PO
[2020-08-11 10:40] LABS: COVID AG,FIA SOURCE NASOPHARYNGEAL
[2020-08-11 12:08] LABS: BASOPHILS % (AUTO) 0.4 % (0.0-2.0); EOSINOPHILS % (AUTO) 0.3 % (1.0-6.0); HEMATOCRIT 43.4 % (41-53); HEMOGLOBIN 14.1 g/dL (13.5-17.5); LYMPHOCYTES # (AUTO) 2.1 K/uL (1.0-4.8); LYMPHOCYTES % (AUTO) 29.4 % (22.0-44.0); MEAN CORPUSCULAR HEMOGLOBIN 26.2 pg (26.0-34.0); MEAN CORPUSCULAR HGB CONC 32.6 G/dL (31.0-37.0); MEAN CORPUSCULAR VOLUME 80 fL (80-100); MONOCYTES # (AUTO) 0.5 K/uL (0.1-1.0); MONOCYTES % (AUTO) 7.1 % (2.0-9.0); NEUTROPHILS # (AUTO) 4.5 K/uL (1.8-7.7); NEUTROPHILS % (AUTO) 62.8 % (40.0-70.0); PLATELET COUNT (AUTO) 297 K/uL (150-450); RED BLOOD CELL COUNT(AUTO) 5.39 MIL/uL (4.50-5.90); RED CELL DISTRIBUTION WIDTH 14.5 % (11.5-14.5)
[2020-08-11 12:23] LABS: ANION GAP 10 mmol/L (8-16); CALCIUM, TOTAL 8.1 mg/dL (8.8-10.5); CARBON DIOXIDE 28 mmol/L (22-29); CHLORIDE 101 mmol/L (98-107); CREATININE 0.72 mg/dL (0.60-1.30); GLOMERULAR FILTR. RATE CALC > 60 mL/min (>60); GLUCOSE,RANDOM 249 mg/dL (70-110); POTASSIUM 3.8 mmol/L (3.5-5.1); SODIUM SERUM 139 mmol/L (136-145); UREA NITROGEN, BLOOD 7 mg/dL (7-18)
[2020-08-11 12:29] LABS: ALANINE AMINOTRANSFERASE 41 U/L (12-78); ALBUMIN 3.6 g/dL (3.4-5.0); ALKALINE PHOSPHATASE 77 U/L (46-116); ASPARTATE AMINOTRANSFERASE 37 U/L (15-37); BILIRUBIN,TOTAL 0.3 mg/dL (0.1-1.0); TOTAL PROTEIN, SERUM 7.3 g/dL (6.4-8.2)
[2020-08-11 12:35] LABS: LITHIUM < 0.20 mmol/L (0.60-1.20)
[2020-08-11] MEDS ORDERED: ZOLPIDEM TARTRATE 10 MG TABLET PO PRN (16:15)
[2020-08-11] MEDS: LORazepam 2 MG TABLET PO PRN (19:39)
[2020-08-11 21:15] VITALS: BP 158/92
[2020-08-12] MEDS: LORazepam 2 MG TABLET PO PRN ×4 (00:58→18:44)
[2020-08-12 01:00] VITALS: BP 144/85
[2020-08-12 05:32] LABS: GLUCOMETER DEV NAME(LOC) 3E.I 2; GLUCOSE,POINT OF CARE 202 MG/DL (70-110)
[2020-08-12] MEDS ORDERED: MetFORMIN HCL 500 MG TABLET PO SCH (07:30)
[2020-08-12 07:33] LABS: FREE T4 (FREE THYROXINE) 1.07 ng/dL (0.76-1.46)
[2020-08-12] MEDS ORDERED: LISINOPRIL 10 MG TABLET PO SCH (09:00)
[2020-08-12 09:36] VITALS: BP 146/88
[2020-08-12] MEDS: LISINOPRIL 10 MG TABLET PO SCH (11:30)
[2020-08-12 12:17] VITALS: BP 145/88
[2020-08-12] MEDS: GABAPENTIN 400 MG CAPSULE PO SCH ×3 (12:48→20:16)
[2020-08-12 16:00] VITALS: BP 133/88
[2020-08-12] MEDS: LITHIUM CARBONATE 300 MG CAPSULE PO SCH (16:29)
[2020-08-12] MEDS: LevETIRAcetam 500 MG TABLET PO SCH (16:30)
[2020-08-12 17:00] VITALS: BP 126/79
[2020-08-12 17:22] LABS: GLUCOMETER DEV NAME(LOC) 3E.I 2; GLUCOSE,POINT OF CARE 302 MG/DL (70-110)
[2020-08-12] MEDS: MetFORMIN HCL 500 MG TABLET PO SCH (17:46)
[2020-08-12] MEDS: QUEtiapine FUMARATE 200 MG TABLET PO SCH (20:16)
[2020-08-12] MEDS: SIMVASTATIN 10 MG TABLET PO SCH (20:16)
[2020-08-12 21:00] VITALS: BP 120/74
[2020-08-13] VITALS (10 sets, daily range): BP systolic 93–153; BP diastolic 49–85
[2020-08-13 05:33] LABS: GLUCOMETER DEV NAME(LOC) 3E.I 2; GLUCOSE,POINT OF CARE 245 MG/DL (70-110)
[2020-08-13] MEDS: LORazepam 2 MG TABLET PO PRN (06:03)
[2020-08-13] MEDS: MetFORMIN HCL 500 MG TABLET PO SCH ×2 (06:41→17:41)
[2020-08-13] MEDS ORDERED: LORazepam 2 MG TABLET PO PRN (07:00)
[2020-08-13] MEDS: GABAPENTIN 400 MG CAPSULE PO SCH ×4 (08:28→20:38)
[2020-08-13] MEDS: VERAPAMIL HCL 120 MG ER TABLET PO SCH (08:29)
[2020-08-13] MEDS: LevETIRAcetam 500 MG TABLET PO SCH ×2 (08:29→16:19)
[2020-08-13] MEDS: LITHIUM CARBONATE 300 MG CAPSULE PO SCH ×2 (08:29→16:19)
[2020-08-13] MEDS: LORazepam 2 MG TABLET PO SCH ×4 (08:29→20:38)
[2020-08-13] MEDS: PANTOPRAZOLE SODIUM 40 MG DR TABLET PO SCH (08:29)
[2020-08-13] MEDS: LISINOPRIL 10 MG TABLET PO SCH (08:29)
[2020-08-13] MEDS ORDERED: ONDANSETRON HCL 4 MG TABLET PO PRN (11:30)
[2020-08-13] MEDS ORDERED: GuaiFENesin/D-METHORPHAN [SUGAR-FREE] 200-20MG/10 ML SYRUP UDCUP PO PRN (11:30)
[2020-08-13] MEDS ORDERED: NICOTINE 14 MG/24 HOUR PATCH TD PRN (11:30)
[2020-08-13] MEDS ORDERED: PETROLATUM,WHITE 28 GM JELLY TP PRN (11:30)
[2020-08-13] MEDS ORDERED: ALBUTEROL SULFATE HFA 90 MCG/PUFF 8 GM INHALER IH PRN (11:30)
[2020-08-13] MEDS ORDERED: MAG HYDROX/AL HYDROX/SIMETH ES 30 ML SUSPENSION UDCUP PO PRN (11:30)
[2020-08-13] MEDS ORDERED: DOCUSATE SODIUM 100 MG CAPSULE PO PRN (11:30)
[2020-08-13] MEDS ORDERED: ACETAMINOPHEN 325 MG TABLET PO PRN (11:30)
[2020-08-13] MEDS ORDERED: MAGNESIUM HYDROXIDE SUSPENSION 30 ML UDCUP PO PRN (11:30)
[2020-08-13] MEDS ORDERED: IBUPROFEN 400 MG TABLET PO PRN (11:30)
[2020-08-13] MEDS ORDERED: CloNIDine HCL 0.1 MG TABLET PO PRN (11:30)
[2020-08-13] MEDS ORDERED: LOPERAMIDE HCL 2 MG CAPSULE PO PRN (11:30)
[2020-08-13] MEDS ORDERED: IBUPROFEN 600 MG TABLET PO PRN (13:45)
[2020-08-13] MEDS: HALOPERIDOL 5 MG TABLET PO PRN (16:20)
[2020-08-13 17:08] LABS: GLUCOMETER DEV NAME(LOC) 3E.I 2; GLUCOSE,POINT OF CARE 277 MG/DL (70-110)
[2020-08-13] MEDS: SIMVASTATIN 10 MG TABLET PO SCH (20:38)
[2020-08-13] MEDS: QUEtiapine FUMARATE 200 MG TABLET PO SCH (20:38)
[2020-08-14] VITALS: BP 140/80
[2020-08-14 05:58] LABS: GLUCOMETER DEV NAME(LOC) 3E.I 2; GLUCOSE,POINT OF CARE 295 MG/DL (70-110)
[2020-08-14] MEDS: MetFORMIN HCL 500 MG TABLET PO SCH ×2 (06:56→17:13)
[2020-08-14 08:00] VITALS: BP 124/74
[2020-08-14] MEDS: LORazepam 2 MG TABLET PO SCH ×3 (08:25→16:33)
[2020-08-14] MEDS: VERAPAMIL HCL 120 MG ER TABLET PO SCH (08:25)
[2020-08-14] MEDS: LITHIUM CARBONATE 300 MG CAPSULE PO SCH ×2 (08:25→16:33)
[2020-08-14] MEDS: LISINOPRIL 10 MG TABLET PO SCH (08:25)
[2020-08-14] MEDS: LevETIRAcetam 500 MG TABLET PO SCH ×2 (08:25→16:33)
[2020-08-14] MEDS: PANTOPRAZOLE SODIUM 40 MG DR TABLET PO SCH (08:25)
[2020-08-14] MEDS: GABAPENTIN 400 MG CAPSULE PO SCH ×3 (08:25→16:33)
[2020-08-14 10:38] VITALS: BP 118/79
[2020-08-14] MEDS: HALOPERIDOL 5 MG TABLET PO PRN (16:33)
[2020-08-14 16:57] LABS: GLUCOMETER DEV NAME(LOC) 3E.I 2; GLUCOSE,POINT OF CARE 289 MG/DL (70-110)
[2020-08-14] MEDS ORDERED: LITH300T29 PO (17:21)
[2020-08-14] MEDS ORDERED: QUET200T PO (17:22)
[2020-08-14] MEDS ORDERED: LEVE250T PO (17:23)
[2020-08-14] MEDS ORDERED: METF-960 PO (17:24)
[2020-08-14] MEDS ORDERED: LISI-661 PO (17:25)
[2020-08-14] MEDS ORDERED: VERA120T33 PO (17:26)
[2020-08-14] MEDS ORDERED: PANT-31 PO (17:26)
[2020-08-14] MEDS ORDERED: ASPI-1444 PO (17:27)
[2020-08-14] MEDS ORDERED: SIMV5TAB58 PO (17:28)
[2020-08-14] MEDS ORDERED: GABA-1181 PO (17:29)
[2020-08-15] MEDS ORDERED: LORazepam 1 MG TABLET PO PRN (07:00)
[2020-08-15] MEDS ORDERED: LORazepam 1 MG TABLET PO SCH (09:00)
[2020-08-15] MEDS ORDERED: ASPIRIN 81 MG CHEWABLE TABLET PO SCH (09:00)
[2020-08-16] MEDS ORDERED: LORazepam 1 MG TABLET PO PRN (07:00)
== END 2020-08-14 18:00 | disposition home or self-care (01) | DRG 754 ==
LOC: EMS 09:46 → 3EI 20:25
PROVIDERS: ADMIT Psychiatry & Neurology Psychiatry; ATTEND Psychiatry & Neurology Psychiatry
DX: F32.9 Major depressive disorder, single episode, unspecified (principal); R45.851 Suicidal ideations; G40.909 Epilepsy, unspecified, not intractable, without status epilepticus; E78.00 Pure hypercholesterolemia, unspecified; F10.129 Alcohol abuse with intoxication, unspecified; Y90.9 Presence of alcohol in blood, level not specified; E03.9 Hypothyroidism, unspecified; I10 Essential (primary) hypertension; I25.10 Atherosclerotic heart disease of native coronary artery without angina pectoris; I48.20 Chronic atrial fibrillation, unspecified; M54.9 Dorsalgia, unspecified; E78.5 Hyperlipidemia, unspecified; F19.10 Other psychoactive substance abuse, uncomplicated; F11.90 Opioid use, unspecified, uncomplicated; E11.65 Type 2 diabetes mellitus with hyperglycemia; Z20.822 Contact with and (suspected) exposure to COVID-19
CPT/HCPCS: 84439; 87426; 99285; G0480

== ENCOUNTER 2020-08-15 00:41 | Emergency (ER) | payer MEDICAID ==
[~2020-08-15] VITALS: Ht 180.3 cm; Wt 106.8 kg
[~2020-08-15 00:41] MED LIST changes: +ASPI-1444 PO; +LISI-661 PO; -LISI-893 PO
[2020-08-15 02:23] LABS: BASOPHILS % (AUTO) 0.3 % (0.0-2.0); EOSINOPHILS % (AUTO) 0.8 % (1.0-6.0); HEMATOCRIT 42.4 % (41-53); LYMPHOCYTES # (AUTO) 1.5 K/uL (1.0-4.8); LYMPHOCYTES % (AUTO) 18.9 % (22.0-44.0); MEAN CORPUSCULAR HEMOGLOBIN 26.8 pg (26.0-34.0); MEAN CORPUSCULAR HGB CONC 33.1 G/dL (31.0-37.0); MEAN CORPUSCULAR VOLUME 81 fL (80-100); MONOCYTES # (AUTO) 0.7 K/uL (0.1-1.0); MONOCYTES % (AUTO) 8.9 % (2.0-9.0); NEUTROPHILS # (AUTO) 5.5 K/uL (1.8-7.7); NEUTROPHILS % (AUTO) 71.1 % (40.0-70.0); PLATELET COUNT (AUTO) 251 K/uL (150-450); RED BLOOD CELL COUNT(AUTO) 5.24 MIL/uL (4.50-5.90); RED CELL DISTRIBUTION WIDTH 14.6 % (11.5-14.5)
[2020-08-15 02:56] LABS: ALANINE AMINOTRANSFERASE 36 U/L (12-78); ALBUMIN 3.4 g/dL (3.4-5.0); ALKALINE PHOSPHATASE 101 U/L (46-116); ANION GAP 14 mmol/L (8-16); ASPARTATE AMINOTRANSFERASE 15 U/L (15-37); BILIRUBIN,TOTAL 0.3 mg/dL (0.1-1.0); CALCIUM, TOTAL 8.8 mg/dL (8.8-10.5); CARBON DIOXIDE 25 mmol/L (22-29); CHLORIDE 98 mmol/L (98-107); GLOMERULAR FILTR. RATE CALC > 60 mL/min (>60); GLUCOSE,RANDOM 359 mg/dL (70-110); POTASSIUM 3.8 mmol/L (3.5-5.1); SODIUM SERUM 137 mmol/L (136-145); TOTAL PROTEIN, SERUM 7.4 g/dL (6.4-8.2); UREA NITROGEN, BLOOD 8 mg/dL (7-18)
[2020-08-15] MEDS ORDERED: INSULIN REGULAR, HUMAN 100 UNITS/ML SQ ONE (03:15)
[2020-08-15 03:45] LABS: GLUCOSE,POINT OF CARE 328 MG/DL (70-110)
[2020-08-15 04:49] LABS: GLUCOSE,POINT OF CARE 312 MG/DL (70-110)
[2020-08-15 05:05] LABS: AMPHET/METH SCREEN,URINE NEGATIVE (NEGATIVE); BARBITURATE SCREEN, URINE NEGATIVE (NEGATIVE); BENZODIAZEPINES SCREEN,URINE NEGATIVE (NEGATIVE); CANNABINOID SCREEN,URINE NEGATIVE (NEGATIVE); COCAINE SCREEN,URINE NEGATIVE (NEGATIVE); METHADONE SCREEN, URINE NEGATIVE (NEGATIVE); OPIATE SCREEN,URINE NEGATIVE (NEGATIVE)
[2020-08-15 05:08] LABS: PHENCYCLIDINE SCREEN,URINE NEGATIVE (NEGATIVE)
[2020-08-15 06:00] VITALS: BP 139/79
== END 2020-08-15 06:10 | disposition home or self-care (01) ==
LOC: EMS 00:43
DX: E11.65 Type 2 diabetes mellitus with hyperglycemia (principal); F10.129 Alcohol abuse with intoxication, unspecified; R44.1 Visual hallucinations; R45.851 Suicidal ideations; E78.00 Pure hypercholesterolemia, unspecified; I10 Essential (primary) hypertension; F11.90 Opioid use, unspecified, uncomplicated; Z79.84 Long term (current) use of oral hypoglycemic drugs; Z79.899 Other long term (current) drug therapy; Y90.7 Blood alcohol level of 200-239 mg/100 ml
CPT/HCPCS: 36415; 80053; 80307; 82962; 85025; 96372; 99285; G0480; J1815

== ENCOUNTER 2020-08-26 06:07 | Inpatient (IN) | payer MEDICAID ==
[~2020-08-26] VITALS: Ht 167.6 cm; Wt 105.7 kg
[2020-08-26 06:46] LABS: BASOPHILS % (AUTO) 0.2 % (0.0-2.0); EOSINOPHILS % (AUTO) 0.2 % (1.0-6.0); HEMATOCRIT 38.7 % (41-53); HEMOGLOBIN 12.8 g/dL (13.5-17.5); LYMPHOCYTES # (AUTO) 0.4 K/uL (1.0-4.8); LYMPHOCYTES % (AUTO) 8.7 % (22.0-44.0); MEAN CORPUSCULAR HEMOGLOBIN 26.5 pg (26.0-34.0); MEAN CORPUSCULAR HGB CONC 33.1 G/dL (31.0-37.0); MEAN CORPUSCULAR VOLUME 80 fL (80-100); MONOCYTES # (AUTO) 0.5 K/uL (0.1-1.0); MONOCYTES % (AUTO) 11.5 % (2.0-9.0); NEUTROPHILS # (AUTO) 3.8 K/uL (1.8-7.7); NEUTROPHILS % (AUTO) 79.4 % (40.0-70.0); PLATELET COUNT (AUTO) 97 K/uL (150-450); RED BLOOD CELL COUNT(AUTO) 4.83 MIL/uL (4.50-5.90); RED CELL DISTRIBUTION WIDTH 15.3 % (11.5-14.5)
[2020-08-26 06:54] LABS: ANION GAP 10 mmol/L (8-16); CALCIUM, TOTAL 8.6 mg/dL (8.8-10.5); CARBON DIOXIDE 28 mmol/L (22-29); CHLORIDE 90 mmol/L (98-107); CREATININE 0.75 mg/dL (0.60-1.30); GLOMERULAR FILTR. RATE CALC > 60 mL/min (>60); GLUCOSE,RANDOM 279 mg/dL (70-110); POTASSIUM 3.6 mmol/L (3.5-5.1); SODIUM SERUM 128 mmol/L (136-145); UREA NITROGEN, BLOOD 5 mg/dL (7-18)
[2020-08-26 07:00] LABS: ALANINE AMINOTRANSFERASE 68 U/L (12-78); ALBUMIN 3.1 g/dL (3.4-5.0); ALKALINE PHOSPHATASE 87 U/L (46-116); ASPARTATE AMINOTRANSFERASE 69 U/L (15-37); BILIRUBIN,TOTAL 1.2 mg/dL (0.1-1.0); TOTAL PROTEIN, SERUM 6.9 g/dL (6.4-8.2)
[2020-08-26 07:43] LABS: AMPHET/METH SCREEN,URINE NEGATIVE (NEGATIVE); BARBITURATE SCREEN, URINE POSITIVE (NEGATIVE); BENZODIAZEPINES SCREEN,URINE NEGATIVE (NEGATIVE); CANNABINOID SCREEN,URINE NEGATIVE (NEGATIVE); COCAINE SCREEN,URINE NEGATIVE (NEGATIVE); METHADONE SCREEN, URINE NEGATIVE (NEGATIVE); OPIATE SCREEN,URINE NEGATIVE (NEGATIVE); PHENCYCLIDINE SCREEN,URINE NEGATIVE (NEGATIVE)
[2020-08-26] MEDS ORDERED: ONDANSETRON HCL 4 MG TABLET PO ONE (08:00)
[2020-08-26 08:12] LABS: COVID AG,FIA SOURCE NASOPHARYNGEAL
[2020-08-26] MEDS: LORazepam 2 MG TABLET PO PRN ×3 (10:32→21:30)
[2020-08-26 13:07] LABS: GLUCOMETER DEV NAME(LOC) BV2S.; GLUCOSE,POINT OF CARE 286 MG/DL (70-110)
[2020-08-26] MEDS ORDERED: GLUCAGON,HUMAN RECOMBINANT 1 MG VIAL IM PRN (13:15)
[2020-08-26] MEDS ORDERED: LISINOPRIL 10 MG TABLET PO SCH (13:15)
[2020-08-26 13:38] VITALS: BP 135/66
[2020-08-26 16:16] VITALS: BP 123/67
[2020-08-26 17:04] LABS: GLUCOMETER DEV NAME(LOC) BV2S.; GLUCOSE,POINT OF CARE 253 MG/DL (70-110)
[2020-08-26] MEDS: HALOPERIDOL 5 MG TABLET PO PRN (17:14)
[2020-08-26] MEDS: INSULIN LISPRO 100 UNITS/ML SQ PRN ×2 (17:19→21:07)
[2020-08-26 21:08] LABS: GLUCOMETER DEV NAME(LOC) BV2S.; GLUCOSE,POINT OF CARE 161 MG/DL (70-110)
[2020-08-26] MEDS: LITHIUM CARBONATE 300 MG CAPSULE PO SCH (21:25)
[2020-08-26] MEDS: QUEtiapine FUMARATE 200 MG TABLET PO SCH (21:25)
[2020-08-27 00:19] VITALS: BP 99/61
[2020-08-27 06:50] LABS: GLUCOMETER DEV NAME(LOC) BV2S.; GLUCOSE,POINT OF CARE 310 MG/DL (70-110)
[2020-08-27] MEDS: INSULIN LISPRO 100 UNITS/ML SQ PRN ×3 (06:56→21:48)
[2020-08-27] MEDS: LORazepam 2 MG TABLET PO PRN (07:12)
[2020-08-27] MEDS ORDERED: GuaiFENesin/D-METHORPHAN [SUGAR-FREE] 200-20MG/10 ML SYRUP UDCUP PO PRN (07:30)
[2020-08-27] MEDS ORDERED: ALBUTEROL SULFATE HFA 90 MCG/PUFF 8 GM INHALER IH PRN (07:30)
[2020-08-27] MEDS ORDERED: MAGNESIUM HYDROXIDE SUSPENSION 30 ML UDCUP PO PRN (07:30)
[2020-08-27] MEDS ORDERED: PETROLATUM,WHITE 28 GM JELLY TP PRN (07:30)
[2020-08-27] MEDS ORDERED: LOPERAMIDE HCL 2 MG CAPSULE PO PRN (07:30)
[2020-08-27] MEDS ORDERED: NICOTINE 14 MG/24 HOUR PATCH TD PRN (07:30)
[2020-08-27] MEDS ORDERED: DOCUSATE SODIUM 100 MG CAPSULE PO PRN (07:30)
[2020-08-27] MEDS ORDERED: CloNIDine HCL 0.1 MG TABLET PO PRN (07:30)
[2020-08-27] MEDS ORDERED: ONDANSETRON HCL 4 MG TABLET PO PRN (07:30)
[2020-08-27] MEDS ORDERED: MAG HYDROX/AL HYDROX/SIMETH ES 30 ML SUSPENSION UDCUP PO PRN (07:30)
[2020-08-27] MEDS: LISINOPRIL 10 MG TABLET PO SCH (08:25)
[2020-08-27] MEDS: LITHIUM CARBONATE 300 MG CAPSULE PO SCH ×2 (08:25→20:20)
[2020-08-27] MEDS ORDERED: PANTOPRAZOLE SODIUM 40 MG DR TABLET PO SCH (09:00)
[2020-08-27] MEDS: VERAPAMIL HCL 120 MG ER TABLET PO SCH (09:00)
[2020-08-27] MEDS: LevETIRAcetam 500 MG TABLET PO SCH ×2 (09:28→16:13)
[2020-08-27] MEDS: ASPIRIN 81 MG DR TABLET PO SCH (09:28)
[2020-08-27] MEDS: HALOPERIDOL 5 MG TABLET PO PRN (14:36)
[2020-08-27] MEDS: MetFORMIN HCL 500 MG TABLET PO SCH (16:14)
[2020-08-27 16:33] LABS: GLUCOMETER DEV NAME(LOC) BV2S.; GLUCOSE,POINT OF CARE 329 MG/DL (70-110)
[2020-08-27 16:41] VITALS: BP 138/83
[2020-08-27] MEDS: SIMVASTATIN 10 MG TABLET PO SCH (20:20)
[2020-08-27] MEDS: QUEtiapine FUMARATE 200 MG TABLET PO SCH (20:20)
[2020-08-27] MEDS: IBUPROFEN 400 MG TABLET PO PRN (20:28)
[2020-08-27] MEDS: ACETAMINOPHEN 325 MG TABLET PO PRN (20:28)
[2020-08-28 01:49] VITALS: BP 127/66
[2020-08-28] MEDS: ZOLPIDEM TARTRATE 10 MG TABLET PO PRN (02:11)
[2020-08-28] MEDS: MetFORMIN HCL 500 MG TABLET PO SCH ×2 (06:08→16:57)
[2020-08-28] MEDS: INSULIN LISPRO 100 UNITS/ML SQ PRN ×4 (06:21→21:15)
[2020-08-28 06:24] LABS: GLUCOMETER DEV NAME(LOC) BV2S.; GLUCOSE,POINT OF CARE 251 MG/DL (70-110)
[2020-08-28] MEDS: HALOPERIDOL 5 MG TABLET PO PRN ×3 (06:50→19:17)
[2020-08-28] MEDS: ASPIRIN 81 MG DR TABLET PO SCH (08:11)
[2020-08-28] MEDS: LITHIUM CARBONATE 300 MG CAPSULE PO SCH ×2 (08:11→20:07)
[2020-08-28] MEDS: LevETIRAcetam 500 MG TABLET PO SCH ×2 (08:11→16:57)
[2020-08-28] MEDS: LISINOPRIL 10 MG TABLET PO SCH (08:11)
[2020-08-28] MEDS: OMEPRAZOLE 20 MG CAPSULE PO SCH (08:11)
[2020-08-28 08:13] VITALS: BP 122/73
[2020-08-28 11:16] LABS: GLUCOMETER DEV NAME(LOC) BV2S.; GLUCOSE,POINT OF CARE 241 MG/DL (70-110)
[2020-08-28 16:17] VITALS: BP 126/73
[2020-08-28] MEDS: ACETAMINOPHEN 325 MG TABLET PO PRN (17:09)
[2020-08-28] MEDS: IBUPROFEN 400 MG TABLET PO PRN (17:09)
[2020-08-28 17:17] LABS: GLUCOMETER DEV NAME(LOC) BV2S.; GLUCOSE,POINT OF CARE 252 MG/DL (70-110)
[2020-08-28] MEDS: SIMVASTATIN 10 MG TABLET PO SCH (20:07)
[2020-08-28] MEDS: QUEtiapine FUMARATE 200 MG TABLET PO SCH (20:07)
[2020-08-28 20:23] LABS: GLUCOMETER DEV NAME(LOC) BV2S.; GLUCOSE,POINT OF CARE 247 MG/DL (70-110)
[2020-08-29 06:10] LABS: GLUCOMETER DEV NAME(LOC) BV2S.; GLUCOSE,POINT OF CARE 191 MG/DL (70-110)
[2020-08-29] MEDS: ACETAMINOPHEN 325 MG TABLET PO PRN (06:16)
[2020-08-29] MEDS: IBUPROFEN 400 MG TABLET PO PRN (06:16)
[2020-08-29] MEDS: INSULIN LISPRO 100 UNITS/ML SQ PRN ×3 (06:35→21:05)
[2020-08-29] MEDS: MetFORMIN HCL 500 MG TABLET PO SCH ×2 (06:36→16:54)
[2020-08-29 06:38] VITALS: BP 140/93
[2020-08-29 08:11] VITALS: BP 125/74
[2020-08-29 08:30] LABS: LITHIUM < 0.20 mmol/L (0.60-1.20)
[2020-08-29 08:40] LABS: CHOLESTEROL 103 mg/dL (131-200); FREE T4 (FREE THYROXINE) 1.13 ng/dL (0.76-1.46); HDL CHOLESTEROL 52 mg/dL (40-60); LDL CHOL (CALC.) 35 mg/dL (0-130); THYROID STIMULATING HORMONE 1.85 uIU/mL (0.36-3.74); TRIGLYCERIDES 78 mg/dL (15-150)
[2020-08-29] MEDS: VERAPAMIL HCL 120 MG ER TABLET PO SCH (09:09)
[2020-08-29] MEDS: OMEPRAZOLE 20 MG CAPSULE PO SCH (09:09)
[2020-08-29] MEDS: LISINOPRIL 10 MG TABLET PO SCH (09:09)
[2020-08-29] MEDS: LevETIRAcetam 500 MG TABLET PO SCH ×2 (09:09→16:54)
[2020-08-29] MEDS: ASPIRIN 81 MG DR TABLET PO SCH (09:09)
[2020-08-29] MEDS: LITHIUM CARBONATE 300 MG CAPSULE PO SCH ×2 (09:09→20:56)
[2020-08-29] MEDS: HALOPERIDOL 5 MG TABLET PO PRN ×3 (09:46→19:10)
[2020-08-29] MEDS: LORazepam 2 MG TABLET PO PRN ×2 (15:22→20:56)
[2020-08-29 16:02] LABS: GLUCOMETER DEV NAME(LOC) BV2S.; GLUCOSE,POINT OF CARE 213 MG/DL (70-110)
[2020-08-29 16:38] VITALS: BP 131/86
[2020-08-29 19:53] LABS: GLUCOMETER DEV NAME(LOC) BV2S.; GLUCOSE,POINT OF CARE 275 MG/DL (70-110)
[2020-08-29] MEDS: QUEtiapine FUMARATE 200 MG TABLET PO SCH (20:55)
[2020-08-29] MEDS: SIMVASTATIN 10 MG TABLET PO SCH (20:56)
[2020-08-29] MEDS ORDERED: LITHIUM CARBONATE 300 MG CAPSULE PO SCH (21:00)
[2020-08-30] VITALS: BP 136/85
[2020-08-30 02:15] VITALS: BP 132/78
[2020-08-30] MEDS: LORazepam 2 MG TABLET PO PRN ×4 (02:16→16:36)
[2020-08-30] MEDS: HALOPERIDOL 5 MG TABLET PO PRN ×4 (03:57→22:36)
[2020-08-30 06:19] LABS: GLUCOMETER DEV NAME(LOC) BV2S.; GLUCOSE,POINT OF CARE 188 MG/DL (70-110)
[2020-08-30 06:38] VITALS: BP 138/80
[2020-08-30] MEDS: MetFORMIN HCL 500 MG TABLET PO SCH ×2 (06:55→16:36)
[2020-08-30] MEDS: INSULIN LISPRO 100 UNITS/ML SQ PRN ×4 (06:57→20:08)
[2020-08-30 08:46] VITALS: BP 104/54
[2020-08-30 08:58] VITALS: BP 137/84
[2020-08-30] MEDS: VERAPAMIL HCL 120 MG ER TABLET PO SCH (08:58)
[2020-08-30] MEDS: OMEPRAZOLE 20 MG CAPSULE PO SCH (08:58)
[2020-08-30] MEDS: LISINOPRIL 10 MG TABLET PO SCH (08:59)
[2020-08-30] MEDS: LITHIUM CARBONATE 300 MG CAPSULE PO SCH ×2 (08:59→16:36)
[2020-08-30] MEDS: LevETIRAcetam 500 MG TABLET PO SCH ×2 (08:59→16:36)
[2020-08-30] MEDS: ASPIRIN 81 MG DR TABLET PO SCH (08:59)
[2020-08-30] MEDS: IBUPROFEN 400 MG TABLET PO PRN (11:09)
[2020-08-30 11:50] LABS: GLUCOMETER DEV NAME(LOC) BV2S.; GLUCOSE,POINT OF CARE 213 MG/DL (70-110)
[2020-08-30 16:20] VITALS: BP 129/79
[2020-08-30 17:05] LABS: GLUCOMETER DEV NAME(LOC) BV2S.; GLUCOSE,POINT OF CARE 265 MG/DL (70-110)
[2020-08-30] MEDS: QUEtiapine FUMARATE 200 MG TABLET PO SCH (20:06)
[2020-08-30] MEDS: SIMVASTATIN 10 MG TABLET PO SCH (20:06)
[2020-08-30 21:02] LABS: GLUCOMETER DEV NAME(LOC) BV2S.; GLUCOSE,POINT OF CARE 243 MG/DL (70-110)
[2020-08-31] MEDS: ZOLPIDEM TARTRATE 10 MG TABLET PO PRN ×2 (00:21→21:02)
[2020-08-31 00:50] VITALS: BP 118/77
[2020-08-31] MEDS: LORazepam 2 MG TABLET PO PRN ×4 (02:57→17:22)
[2020-08-31 06:37] LABS: GLUCOMETER DEV NAME(LOC) BV2S.; GLUCOSE,POINT OF CARE 175 MG/DL (70-110)
[2020-08-31] MEDS: MetFORMIN HCL 500 MG TABLET PO SCH ×2 (06:39→16:47)
[2020-08-31] MEDS: INSULIN LISPRO 100 UNITS/ML SQ PRN ×4 (06:41→20:58)
[2020-08-31 07:36] LABS: COVID AG,FIA SOURCE NASOPHARYNGEAL
[2020-08-31 07:47] LABS: ANION GAP 6 mmol/L (8-16); CALCIUM, TOTAL 8.4 mg/dL (8.8-10.5); CARBON DIOXIDE 29 mmol/L (22-29); CHLORIDE 101 mmol/L (98-107); CREATININE 0.61 mg/dL (0.60-1.30); GLOMERULAR FILTR. RATE CALC > 60 mL/min (>60); GLUCOSE,RANDOM 186 mg/dL (70-110); POTASSIUM 3.6 mmol/L (3.5-5.1); SODIUM SERUM 136 mmol/L (136-145); UREA NITROGEN, BLOOD 9 mg/dL (7-18)
[2020-08-31] MEDS: LISINOPRIL 10 MG TABLET PO SCH (08:53)
[2020-08-31] MEDS: VERAPAMIL HCL 120 MG ER TABLET PO SCH (08:53)
[2020-08-31] MEDS: OMEPRAZOLE 20 MG CAPSULE PO SCH (08:54)
[2020-08-31] MEDS: LITHIUM CARBONATE 300 MG CAPSULE PO SCH ×2 (08:54→16:47)
[2020-08-31 08:55] VITALS: BP 113/79
[2020-08-31] MEDS: ASPIRIN 81 MG DR TABLET PO SCH (09:02)
[2020-08-31] MEDS: LevETIRAcetam 500 MG TABLET PO SCH ×2 (09:02→16:47)
[2020-08-31 12:52] LABS: GLUCOMETER DEV NAME(LOC) BV2S.; GLUCOSE,POINT OF CARE 249 MG/DL (70-110)
[2020-08-31] MEDS: HALOPERIDOL 5 MG TABLET PO PRN (14:51)
[2020-08-31 16:16] VITALS: BP 113/78
[2020-08-31 16:57] LABS: GLUCOMETER DEV NAME(LOC) BV2S.; GLUCOSE,POINT OF CARE 257 MG/DL (70-110)
[2020-08-31] MEDS: QUEtiapine FUMARATE 200 MG TABLET PO SCH (20:15)
[2020-08-31] MEDS: SIMVASTATIN 10 MG TABLET PO SCH (20:16)
[2020-08-31 20:30] LABS: GLUCOMETER DEV NAME(LOC) BV2S.; GLUCOSE,POINT OF CARE 319 MG/DL (70-110)
[2020-09-01 01:10] VITALS: BP 122/79
[2020-09-01 06:25] VITALS: BP 115/72
[2020-09-01] MEDS: LORazepam 2 MG TABLET PO PRN ×3 (06:28→16:00)
[2020-09-01] MEDS: MetFORMIN HCL 500 MG TABLET PO SCH ×2 (06:29→16:00)
[2020-09-01] MEDS: INSULIN LISPRO 100 UNITS/ML SQ PRN ×3 (06:42→17:01)
[2020-09-01 06:49] LABS: GLUCOMETER DEV NAME(LOC) BV2S.; GLUCOSE,POINT OF CARE 277 MG/DL (70-110)
[2020-09-01 08:10] VITALS: BP 112/76
[2020-09-01] MEDS: OMEPRAZOLE 20 MG CAPSULE PO SCH (08:10)
[2020-09-01] MEDS: LISINOPRIL 10 MG TABLET PO SCH (08:10)
[2020-09-01] MEDS: LevETIRAcetam 500 MG TABLET PO SCH ×2 (08:10→16:00)
[2020-09-01] MEDS: VERAPAMIL HCL 120 MG ER TABLET PO SCH (08:10)
[2020-09-01] MEDS: HALOPERIDOL 5 MG TABLET PO PRN (08:10)
[2020-09-01] MEDS: LITHIUM CARBONATE 300 MG CAPSULE PO SCH ×2 (08:10→16:00)
[2020-09-01] MEDS: ASPIRIN 81 MG DR TABLET PO SCH (08:10)
[2020-09-01 11:10] LABS: GLUCOMETER DEV NAME(LOC) BV2S.; GLUCOSE,POINT OF CARE 247 MG/DL (70-110)
[2020-09-01 16:15] VITALS: BP 114/73
[2020-09-01 17:07] LABS: GLUCOMETER DEV NAME(LOC) BV2S.; GLUCOSE,POINT OF CARE 246 MG/DL (70-110)
[2020-09-01] MEDS ORDERED: QUET200T PO (17:34)
[2020-09-01] MEDS ORDERED: LITH600C PO (17:35)
[2020-09-01] MEDS ORDERED: OMEP10SU2 PO (17:38)
[2020-09-01] MEDS ORDERED: OMEP20 PO (17:38)
== END 2020-09-01 19:50 | disposition home or self-care (01) | DRG 750 ==
LOC: EMS 06:08 → B2S 10:09
PROVIDERS: ADMIT Psychiatry & Neurology Psychiatry; ATTEND Psychiatry & Neurology Psychiatry
DX: F20.9 Schizophrenia, unspecified (principal); E87.1 Hypo-osmolality and hyponatremia; I48.91 Unspecified atrial fibrillation; E11.9 Type 2 diabetes mellitus without complications; D64.9 Anemia, unspecified; E78.00 Pure hypercholesterolemia, unspecified; E03.9 Hypothyroidism, unspecified; G40.909 Epilepsy, unspecified, not intractable, without status epilepticus; E78.5 Hyperlipidemia, unspecified; I10 Essential (primary) hypertension; Z20.822 Contact with and (suspected) exposure to COVID-19; F11.90 Opioid use, unspecified, uncomplicated
CPT/HCPCS: 84439; 84443; 87081; 87426; 99285; G0480; Q0162

== ENCOUNTER 2021-01-24 06:04 | Inpatient (IN) | payer MEDICAID ==
[~2021-01-24] VITALS: Ht 167.6 cm; Wt 110.2 kg
[~2021-01-24 06:04] MED LIST changes: -GABA-1201 PO; -LITH300C3 PO; +LITH600C PO; +OMEP20 PO; -PANT-31 PO; -QUET200T29 PO; +QUET200T30 PO
[2021-01-24 16:41] VITALS: BP 140/78
[2021-01-24] MEDS ORDERED: PNEUMOCOCCAL VACCINE POLYVALENT 0.5 ML VIAL [PPSV23] IM. ONE (16:45)
[2021-01-24 16:50] LABS: GLUCOMETER DEV NAME(LOC) BV2S.; GLUCOSE,POINT OF CARE 336 MG/DL (70-110)
[2021-01-24] MEDS: LORazepam 2 MG TABLET PO PRN ×2 (16:51→21:12)
[2021-01-24] MEDS: LevETIRAcetam 500 MG TABLET PO SCH (17:00)
[2021-01-24] MEDS: SIMVASTATIN 10 MG TABLET PO SCH (21:17)
[2021-01-24] MEDS: MetFORMIN HCL 500 MG ER TABLET PO SCH (21:18)
[2021-01-24] MEDS: ZOLPIDEM TARTRATE 10 MG TABLET PO PRN (21:57)
[2021-01-25] MEDS: LORazepam 2 MG TABLET PO PRN ×4 (01:14→14:16)
[2021-01-25 03:08] VITALS: BP 140/92
[2021-01-25] MEDS: HALOPERIDOL 5 MG TABLET PO PRN ×2 (03:10→16:25)
[2021-01-25] MEDS: MetFORMIN HCL 500 MG ER TABLET PO SCH ×2 (06:47→16:23)
[2021-01-25] MEDS ORDERED: GuaiFENesin/D-METHORPHAN [SUGAR-FREE] 200-20MG/10 ML SYRUP UDCUP PO PRN (07:45)
[2021-01-25] MEDS ORDERED: ACETAMINOPHEN 325 MG TABLET PO PRN (07:45)
[2021-01-25] MEDS ORDERED: CloNIDine HCL 0.1 MG TABLET PO PRN (07:45)
[2021-01-25] MEDS ORDERED: PETROLATUM,WHITE 28 GM JELLY TP PRN (07:45)
[2021-01-25] MEDS ORDERED: DOCUSATE SODIUM 100 MG CAPSULE PO PRN (07:45)
[2021-01-25] MEDS ORDERED: MAGNESIUM HYDROXIDE SUSPENSION 30 ML UDCUP PO PRN (07:45)
[2021-01-25] MEDS ORDERED: ONDANSETRON HCL 4 MG TABLET PO PRN (07:45)
[2021-01-25] MEDS ORDERED: MAG HYDROX/AL HYDROX/SIMETH ES 30 ML SUSPENSION UDCUP PO PRN (07:45)
[2021-01-25] MEDS ORDERED: LOPERAMIDE HCL 2 MG CAPSULE PO PRN (07:45)
[2021-01-25] MEDS ORDERED: NICOTINE 14 MG/24 HOUR PATCH TD PRN (07:45)
[2021-01-25] MEDS ORDERED: ALBUTEROL SULFATE HFA 90 MCG/PUFF 8 GM INHALER IH PRN (07:45)
[2021-01-25 08:20] VITALS: BP 133/73
[2021-01-25] MEDS: ASPIRIN 81 MG DR TABLET PO SCH (08:45)
[2021-01-25] MEDS: OMEPRAZOLE 20 MG CAPSULE PO SCH (08:45)
[2021-01-25] MEDS: LevETIRAcetam 500 MG TABLET PO SCH ×2 (08:46→16:23)
[2021-01-25] MEDS: IBUPROFEN 400 MG TABLET PO PRN (10:56)
[2021-01-25] MEDS: VERAPAMIL HCL 120 MG ER TABLET PO SCH (16:23)
[2021-01-25 16:32] VITALS: BP 128/71
[2021-01-25] MEDS: SIMVASTATIN 10 MG TABLET PO SCH (20:03)
[2021-01-25] MEDS: ZOLPIDEM TARTRATE 10 MG TABLET PO PRN (20:03)
[2021-01-25] MEDS: MIRTAZAPINE 30 MG TABLET PO SCH (20:03)
[2021-01-25] MEDS: QUEtiapine FUMARATE 200 MG TABLET PO SCH (20:03)
[2021-01-26 01:41] VITALS: BP 117/69
[2021-01-26] MEDS ORDERED: LORazepam 2 MG TABLET PO PRN (07:00)
[2021-01-26] MEDS: MetFORMIN HCL 500 MG ER TABLET PO SCH ×2 (07:02→16:02)
[2021-01-26] MEDS: LORazepam 2 MG TABLET PO PRN (07:29)
[2021-01-26 08:25] VITALS: BP 138/84
[2021-01-26] MEDS: OMEPRAZOLE 20 MG CAPSULE PO SCH (08:45)
[2021-01-26] MEDS: VERAPAMIL HCL 120 MG ER TABLET PO SCH (08:45)
[2021-01-26] MEDS: LevETIRAcetam 500 MG TABLET PO SCH ×2 (08:45→16:02)
[2021-01-26] MEDS: ASPIRIN 81 MG DR TABLET PO SCH (08:46)
[2021-01-26 10:50] VITALS: BP 128/76
[2021-01-26] MEDS: IBUPROFEN 400 MG TABLET PO PRN (11:19)
[2021-01-26] MEDS: LORazepam 2 MG TABLET PO SCH ×3 (12:27→20:04)
[2021-01-26 16:09] VITALS: BP 130/69
[2021-01-26] MEDS: MIRTAZAPINE 30 MG TABLET PO SCH (20:04)
[2021-01-26] MEDS: SIMVASTATIN 10 MG TABLET PO SCH (20:04)
[2021-01-26] MEDS: QUEtiapine FUMARATE 200 MG TABLET PO SCH (20:04)
[2021-01-26] MEDS: ZOLPIDEM TARTRATE 10 MG TABLET PO PRN (21:11)
[2021-01-26 21:47] LABS: GLUCOMETER DEV NAME(LOC) BV2S.; GLUCOSE,POINT OF CARE 286 MG/DL (70-110)
[2021-01-27 00:45] VITALS: BP 121/71
[2021-01-27] MEDS: IBUPROFEN 400 MG TABLET PO PRN ×2 (00:50→19:46)
[2021-01-27] MEDS: MetFORMIN HCL 500 MG ER TABLET PO SCH ×2 (06:45→16:38)
[2021-01-27] MEDS: LORazepam 2 MG TABLET PO PRN (06:54)
[2021-01-27 07:36] LABS: BASOPHILS % (AUTO) 0.9 % (0.0-2.0); EOSINOPHILS % (AUTO) 1.8 % (1.0-6.0); HEMATOCRIT 40.3 % (41-53); HEMOGLOBIN 13.3 g/dL (13.5-17.5); LYMPHOCYTES # (AUTO) 1.8 K/uL (1.0-4.8); LYMPHOCYTES % (AUTO) 28.4 % (22.0-44.0); MEAN CORPUSCULAR HEMOGLOBIN 26.4 pg (26.0-34.0); MEAN CORPUSCULAR HGB CONC 32.9 G/dL (31.0-37.0); MEAN CORPUSCULAR VOLUME 81 fL (80-100); MONOCYTES # (AUTO) 0.5 K/uL (0.1-1.0); MONOCYTES % (AUTO) 7.8 % (2.0-9.0); NEUTROPHILS # (AUTO) 3.9 K/uL (1.8-7.7); NEUTROPHILS % (AUTO) 61.1 % (40.0-70.0); PLATELET COUNT (AUTO) 318 K/uL (150-450); RED BLOOD CELL COUNT(AUTO) 5.01 MIL/uL (4.50-5.90); RED CELL DISTRIBUTION WIDTH 16.1 % (11.5-14.5)
[2021-01-27 07:38] LABS: APPEARANCE,URINE CLEAR (CLEAR); BILIRUBIN,URINE NEGATIVE (NEGATIVE); GLUCOSE, URINE (UA) >=1000 mg/dL (NEGATIVE); KETONES,URINE NEGATIVE (NEGATIVE); LEUKOCYTE ESTERASE ,URINE NEGATIVE (NEGATIVE); NITRATE,URINE NEGATIVE (NEGATIVE); OCCULT BLOOD,URINE NEGATIVE (NEGATIVE); PH,URINE 5.5 (5.0-8.0); PROTEIN,URINE NEGATIVE (NEGATIVE); UROBILINOGEN,URINE 0.2 mg/dL (<=1.0)
[2021-01-27 07:41] LABS: AMPHET/METH SCREEN,URINE NEGATIVE (NEGATIVE); BARBITURATE SCREEN, URINE NEGATIVE (NEGATIVE); BENZODIAZEPINES SCREEN,URINE NEGATIVE (NEGATIVE); CANNABINOID SCREEN,URINE NEGATIVE (NEGATIVE); COCAINE SCREEN,URINE NEGATIVE (NEGATIVE); METHADONE SCREEN, URINE NEGATIVE (NEGATIVE); OPIATE SCREEN,URINE NEGATIVE (NEGATIVE)
[2021-01-27 07:43] LABS: PHENCYCLIDINE SCREEN,URINE NEGATIVE (NEGATIVE)
[2021-01-27 07:52] LABS: HEMOGLOBIN A1C 11.3 % (3.8-5.6)
[2021-01-27 08:11] LABS: ALANINE AMINOTRANSFERASE 32 U/L (12-78); ANION GAP 8 mmol/L (8-16); ASPARTATE AMINOTRANSFERASE 12 U/L (15-37); CALCIUM, TOTAL 8.7 mg/dL (8.8-10.5); CARBON DIOXIDE 27 mmol/L (22-29); CHLORIDE 100 mmol/L (98-107); FREE T4 (FREE THYROXINE) 0.94 ng/dL (0.76-1.46); GLOMERULAR FILTR. RATE CALC > 60 mL/min (>60); GLUCOSE,RANDOM 245 mg/dL (70-110); SODIUM SERUM 135 mmol/L (136-145); THYROID STIMULATING HORMONE 3.07 uIU/mL (0.36-3.74); UREA NITROGEN, BLOOD 10 mg/dL (7-18)
[2021-01-27 08:25] LABS: BACTERIA,URINE None Seen /HPF (None Seen); RBC,URINE None Seen /HPF (0-2); WBC,URINE None Seen /HPF (0-5)
[2021-01-27] MEDS: OMEPRAZOLE 20 MG CAPSULE PO SCH (08:41)
[2021-01-27] MEDS: VERAPAMIL HCL 120 MG ER TABLET PO SCH (08:41)
[2021-01-27] MEDS: LevETIRAcetam 500 MG TABLET PO SCH ×2 (08:41→16:37)
[2021-01-27 08:42] LABS: ALBUMIN 3.3 g/dL (3.4-5.0); ALKALINE PHOSPHATASE 116 U/L (46-116); BILIRUBIN,TOTAL 0.3 mg/dL (0.1-1.0); TOTAL PROTEIN, SERUM 7.2 g/dL (6.4-8.2)
[2021-01-27] MEDS: ASPIRIN 81 MG DR TABLET PO SCH (08:42)
[2021-01-27 08:44] LABS: CHOLESTEROL 152 mg/dL (131-200); HDL CHOLESTEROL 50 mg/dL (40-60); LDL CHOL (CALC.) 86 mg/dL (0-130); TRIGLYCERIDES 82 mg/dL (15-150)
[2021-01-27] MEDS: LORazepam 2 MG TABLET PO SCH ×4 (09:00→20:40)
[2021-01-27 10:17] VITALS: BP 107/68
[2021-01-27 11:23] VITALS: BP 107/68
[2021-01-27 16:20] VITALS: BP 141/77
[2021-01-27 19:37] VITALS: BP 136/72
[2021-01-27] MEDS: QUEtiapine FUMARATE 200 MG TABLET PO SCH (20:40)
[2021-01-27] MEDS: MIRTAZAPINE 30 MG TABLET PO SCH (20:40)
[2021-01-27] MEDS: SIMVASTATIN 10 MG TABLET PO SCH (20:40)
[2021-01-28] MEDS: HALOPERIDOL 5 MG TABLET PO PRN (00:11)
[2021-01-28 01:17] VITALS: BP 113/81
[2021-01-28] MEDS: MetFORMIN HCL 500 MG ER TABLET PO SCH ×2 (07:05→16:32)
[2021-01-28 08:19] VITALS: BP 139/97
[2021-01-28] MEDS: OMEPRAZOLE 20 MG CAPSULE PO SCH (09:02)
[2021-01-28] MEDS: LevETIRAcetam 500 MG TABLET PO SCH ×2 (09:03→16:32)
[2021-01-28] MEDS: LORazepam 1 MG TABLET PO SCH ×4 (09:04→20:29)
[2021-01-28] MEDS: VERAPAMIL HCL 120 MG ER TABLET PO SCH (09:05)
[2021-01-28] MEDS: ASPIRIN 81 MG DR TABLET PO SCH (09:05)
[2021-01-28 16:15] VITALS: BP 135/83
[2021-01-28 18:57] VITALS: BP 135/83
[2021-01-28] MEDS: SIMVASTATIN 10 MG TABLET PO SCH (20:29)
[2021-01-28] MEDS: MIRTAZAPINE 30 MG TABLET PO SCH (20:29)
[2021-01-28] MEDS: QUEtiapine FUMARATE 200 MG TABLET PO SCH (20:29)
[2021-01-29] VITALS: BP 121/90
[2021-01-29] MEDS: LORazepam 1 MG TABLET PO PRN ×5 (00:07→17:38)
[2021-01-29] MEDS: IBUPROFEN 600 MG TABLET PO PRN ×2 (00:08→13:29)
[2021-01-29 05:05] VITALS: BP 107/70
[2021-01-29] MEDS: MetFORMIN HCL 500 MG ER TABLET PO SCH ×2 (06:35→16:20)
[2021-01-29 07:43] LABS: COVID AG,FIA SOURCE NASOPHARYNGEAL
[2021-01-29 08:15] VITALS: BP 141/72
[2021-01-29] MEDS: OMEPRAZOLE 20 MG CAPSULE PO SCH (09:05)
[2021-01-29] MEDS: VERAPAMIL HCL 120 MG ER TABLET PO SCH (09:05)
[2021-01-29] MEDS: LevETIRAcetam 500 MG TABLET PO SCH ×3 (09:05→16:31)
[2021-01-29] MEDS: ASPIRIN 81 MG DR TABLET PO SCH (09:06)
[2021-01-29 11:00] VITALS: BP 129/79
[2021-01-29 16:09] VITALS: BP 114/69
[2021-01-29] MEDS: MIRTAZAPINE 30 MG TABLET PO SCH (20:19)
[2021-01-29] MEDS: SIMVASTATIN 10 MG TABLET PO SCH (20:20)
[2021-01-29] MEDS: QUEtiapine FUMARATE 200 MG TABLET PO SCH (20:20)
[2021-01-30 00:37] VITALS: BP 112/69
[2021-01-30] MEDS: IBUPROFEN 600 MG TABLET PO PRN (04:47)
[2021-01-30 06:25] LABS: GLUCOMETER DEV NAME(LOC) BV2S.; GLUCOSE,POINT OF CARE 282 MG/DL (70-110)
[2021-01-30] MEDS: LORazepam 1 MG TABLET PO PRN (06:47)
[2021-01-30] MEDS: MetFORMIN HCL 500 MG ER TABLET PO SCH (06:47)
[2021-01-30] MEDS: LevETIRAcetam 500 MG TABLET PO SCH (08:06)
[2021-01-30] MEDS: VERAPAMIL HCL 120 MG ER TABLET PO SCH (08:06)
[2021-01-30] MEDS: ASPIRIN 81 MG DR TABLET PO SCH (08:07)
[2021-01-30] MEDS: OMEPRAZOLE 20 MG CAPSULE PO SCH (08:07)
[2021-01-30 08:13] VITALS: BP 140/92
[2021-01-30] MEDS ORDERED: MIRT30 PO (09:03)
[2021-01-30] MEDS ORDERED: METF-911 PO (09:04)
== END 2021-01-30 10:00 | disposition home or self-care (01) | DRG 750 ==
LOC: B2S 15:45
DX: F25.1 Schizoaffective disorder, depressive type (principal); I48.20 Chronic atrial fibrillation, unspecified; R45.851 Suicidal ideations; E03.9 Hypothyroidism, unspecified; G40.909 Epilepsy, unspecified, not intractable, without status epilepticus; E11.9 Type 2 diabetes mellitus without complications; Z20.822 Contact with and (suspected) exposure to COVID-19; E78.5 Hyperlipidemia, unspecified; F10.20 Alcohol dependence, uncomplicated; I10 Essential (primary) hypertension; K21.9 Gastro-esophageal reflux disease without esophagitis; Z59.0 Homelessness; Z79.899 Other long term (current) drug therapy; Z65.3 Problems related to other legal circumstances; Z79.82 Long term (current) use of aspirin; Z87.11 Personal history of peptic ulcer disease
CPT/HCPCS: 80053; 80061; 80307; 81001; 82962; 83036; 84436; 84439; 84443; 85025; G0480; G0482

== ENCOUNTER 2021-04-08 17:11 | Inpatient (IN) | payer MEDICAID ==
[~2021-04-08] VITALS: Ht 167.6 cm; Wt 113.9 kg
[~2021-04-08 17:11] MED LIST changes: +LEVE500T20 PO; -LEVE500T53 PO; -LISI-661 PO; -LITH600C PO; +METF-911 PO; -METF-960 PO; +MIRT30 PO; -VERA120T33 PO; +VERA120T91 PO
[2021-04-08] MEDS ORDERED: SODIUM CHLORIDE 0.9% 1,000 ML IV ONE ×2 (18:30→21:30)
[2021-04-08 18:36] LABS: COVID AG,FIA SOURCE NASOPHARYNGEAL
[2021-04-08] MEDS ORDERED: LORazepam 2 MG/ML VIAL IVP ONE (18:45)
[2021-04-08 18:47] LABS: BASOPHILS % (AUTO) 0.5 % (0.0-2.0); EOSINOPHILS % (AUTO) 0.3 % (1.0-6.0); HEMATOCRIT 42.4 % (41-53); HEMOGLOBIN 14.1 g/dL (13.5-17.5); LYMPHOCYTES # (AUTO) 1.6 K/uL (1.0-4.8); MEAN CORPUSCULAR HEMOGLOBIN 26.8 pg (26.0-34.0); MEAN CORPUSCULAR HGB CONC 33.2 G/dL (31.0-37.0); MEAN CORPUSCULAR VOLUME 81 fL (80-100); MONOCYTES # (AUTO) 0.4 K/uL (0.1-1.0); MONOCYTES % (AUTO) 6.9 % (2.0-9.0); NEUTROPHILS # (AUTO) 4.2 K/uL (1.8-7.7); NEUTROPHILS % (AUTO) 66.3 % (40.0-70.0); PLATELET COUNT (AUTO) 165 K/uL (150-450); RED BLOOD CELL COUNT(AUTO) 5.25 MIL/uL (4.50-5.90); RED CELL DISTRIBUTION WIDTH 16.4 % (11.5-14.5)
[2021-04-08 18:50] LABS: AMPHET/METH SCREEN,URINE NEGATIVE (NEGATIVE); BARBITURATE SCREEN, URINE NEGATIVE (NEGATIVE); BENZODIAZEPINES SCREEN,URINE NEGATIVE (NEGATIVE); CANNABINOID SCREEN,URINE NEGATIVE (NEGATIVE); COCAINE SCREEN,URINE NEGATIVE (NEGATIVE); METHADONE SCREEN, URINE NEGATIVE (NEGATIVE); OPIATE SCREEN,URINE NEGATIVE (NEGATIVE)
[2021-04-08 19:00] LABS: PHENCYCLIDINE SCREEN,URINE NEGATIVE (NEGATIVE)
[2021-04-08 19:01] LABS: ANION GAP 13 mmol/L (8-16); CALCIUM, TOTAL 8.1 mg/dL (8.8-10.5); CARBON DIOXIDE 27 mmol/L (22-29); CHLORIDE 96 mmol/L (98-107); CREATININE 0.67 mg/dL (0.60-1.30); GLOMERULAR FILTR. RATE CALC > 60 mL/min (>60); GLUCOSE,RANDOM 334 mg/dL (70-110); POTASSIUM 3.4 mmol/L (3.5-5.1); SODIUM SERUM 136 mmol/L (136-145); UREA NITROGEN, BLOOD 5 mg/dL (7-18)
[2021-04-08 19:07] LABS: ALANINE AMINOTRANSFERASE 75 U/L (12-78); ALBUMIN 3.6 g/dL (3.4-5.0); ALKALINE PHOSPHATASE 90 U/L (46-116); ASPARTATE AMINOTRANSFERASE 87 U/L (15-37); BILIRUBIN,TOTAL 0.6 mg/dL (0.1-1.0); TOTAL PROTEIN, SERUM 7.4 g/dL (6.4-8.2)
[2021-04-08] MEDS: ChlordiazePOXIDE HCL 25 MG CAPSULE PO PRN (21:51)
[2021-04-08 21:52] LABS: GLUCOMETER DEV NAME(LOC) ERT.5; GLUCOSE,POINT OF CARE 248 MG/DL (70-110)
[2021-04-09] VITALS (13 sets, daily range): BP systolic 130–171; BP diastolic 78–95
[2021-04-09 00:55] LABS: CHOL/HDL RATIO 2.7 (4.2-7.3)
[2021-04-09] MEDS ORDERED: PNEUMOCOCCAL VACCINE POLYVALENT 0.5 ML VIAL [PPSV23] IM. ONE (03:00)
[2021-04-09] MEDS ORDERED: INFLUENZA VIRUS VACCINE QVS 2021-22 (6MO+)/PF 60 MCG/0.5 ML SYRINGE IM. ONE (03:00)
[2021-04-09] MEDS: ChlordiazePOXIDE HCL 25 MG CAPSULE PO PRN (03:44)
[2021-04-09 06:56] LABS: GLUCOMETER DEV NAME(LOC) 3EX.; GLUCOSE,POINT OF CARE 200 MG/DL (70-110)
[2021-04-09] MEDS ORDERED: ChlordiazePOXIDE HCL 25 MG CAPSULE PO PRN (07:00)
[2021-04-09] MEDS: MetFORMIN HCL 500 MG ER TABLET PO SCH ×2 (07:34→17:11)
[2021-04-09] MEDS ORDERED: ASPIRIN 81 MG DR TABLET PO SCH (09:00)
[2021-04-09] MEDS ORDERED: LevETIRAcetam 500 MG TABLET PO SCH (09:00)
[2021-04-09] MEDS: FOLIC ACID 1 MG TABLET PO SCH (09:05)
[2021-04-09] MEDS: THIAMINE 100 MG TABLET PO SCH (09:05)
[2021-04-09] MEDS: OMEPRAZOLE 20 MG CAPSULE PO SCH (09:05)
[2021-04-09] MEDS: MULTIVITAMINS, THERAPEUTIC TABLET PO SCH (09:05)
[2021-04-09] MEDS: IBUPROFEN 400 MG TABLET PO PRN ×2 (09:06→20:31)
[2021-04-09] MEDS: VERAPAMIL HCL 120 MG ER TABLET PO SCH (09:39)
[2021-04-09] MEDS: ChlordiazePOXIDE HCL 25 MG CAPSULE PO SCH ×4 (09:39→20:11)
[2021-04-09] MEDS: ASPIRIN 81 MG CHEWABLE TABLET PO SCH (09:39)
[2021-04-09] MEDS: HALOPERIDOL 5 MG TABLET PO PRN (11:13)
[2021-04-09] MEDS ORDERED: MAG HYDROX/AL HYDROX/SIMETH 30 ML SUSP UDCUP PO PRN (12:00)
[2021-04-09] MEDS: MIRTAZAPINE 30 MG TABLET PO SCH (20:10)
[2021-04-09] MEDS: QUEtiapine FUMARATE 200 MG TABLET PO SCH (20:10)
[2021-04-09] MEDS: SIMVASTATIN 10 MG TABLET PO SCH (20:11)
[2021-04-10] VITALS (7 sets, daily range): BP systolic 125–158; BP diastolic 75–94
[2021-04-10] MEDS: MetFORMIN HCL 500 MG ER TABLET PO SCH ×2 (07:22→17:35)
[2021-04-10] MEDS: ASPIRIN 81 MG CHEWABLE TABLET PO SCH (09:04)
[2021-04-10] MEDS: OMEPRAZOLE 20 MG CAPSULE PO SCH (09:05)
[2021-04-10] MEDS: FOLIC ACID 1 MG TABLET PO SCH (09:05)
[2021-04-10] MEDS: VERAPAMIL HCL 120 MG ER TABLET PO SCH (09:05)
[2021-04-10] MEDS: THIAMINE 100 MG TABLET PO SCH (09:05)
[2021-04-10] MEDS: ChlordiazePOXIDE HCL 25 MG CAPSULE PO SCH ×4 (09:05→20:12)
[2021-04-10] MEDS: MULTIVITAMINS, THERAPEUTIC TABLET PO SCH (09:05)
[2021-04-10] MEDS: IBUPROFEN 400 MG TABLET PO PRN (12:34)
[2021-04-10] MEDS: SIMVASTATIN 10 MG TABLET PO SCH (20:12)
[2021-04-10] MEDS: QUEtiapine FUMARATE 200 MG TABLET PO SCH (20:12)
[2021-04-10] MEDS: MIRTAZAPINE 30 MG TABLET PO SCH (20:13)
[2021-04-11 01:05] VITALS: BP 143/91
[2021-04-11] MEDS: MetFORMIN HCL 500 MG ER TABLET PO SCH ×2 (06:30→16:46)
[2021-04-11] MEDS ORDERED: ChlordiazePOXIDE HCL 10 MG CAPSULE PO PRN (07:00)
[2021-04-11] MEDS: IBUPROFEN 400 MG TABLET PO PRN ×2 (07:06→19:47)
[2021-04-11] MEDS: MULTIVITAMINS, THERAPEUTIC TABLET PO SCH (08:02)
[2021-04-11] MEDS: ChlordiazePOXIDE HCL 10 MG CAPSULE PO SCH ×5 (08:02→20:49)
[2021-04-11] MEDS: ASPIRIN 81 MG CHEWABLE TABLET PO SCH (08:02)
[2021-04-11] MEDS: THIAMINE 100 MG TABLET PO SCH (08:03)
[2021-04-11] MEDS: FOLIC ACID 1 MG TABLET PO SCH (08:03)
[2021-04-11] MEDS: OMEPRAZOLE 20 MG CAPSULE PO SCH (08:03)
[2021-04-11 08:05] VITALS: BP 142/91
[2021-04-11] MEDS: VERAPAMIL HCL 120 MG ER TABLET PO SCH (09:19)
[2021-04-11 16:00] VITALS: BP 163/93
[2021-04-11 16:52] VITALS: BP 163/93
[2021-04-11 19:47] VITALS: BP 140/81
[2021-04-11] MEDS: SIMVASTATIN 10 MG TABLET PO SCH (20:49)
[2021-04-11] MEDS: MIRTAZAPINE 30 MG TABLET PO SCH (20:50)
[2021-04-11] MEDS: QUEtiapine FUMARATE 200 MG TABLET PO SCH (20:50)
[2021-04-12] MEDS: ZOLPIDEM TARTRATE 10 MG TABLET PO PRN (02:09)
[2021-04-12 05:15] VITALS: BP 138/83
[2021-04-12] MEDS: IBUPROFEN 400 MG TABLET PO PRN ×2 (05:19→16:01)
[2021-04-12 05:32] VITALS: BP 138/83
[2021-04-12] MEDS ORDERED: ChlordiazePOXIDE HCL 10 MG CAPSULE PO PRN (07:00)
[2021-04-12] MEDS: MetFORMIN HCL 500 MG ER TABLET PO SCH ×2 (07:08→16:55)
[2021-04-12 08:00] VITALS: BP_SYST 142; BP_SYST 159; BP_DIAS 108; BP_DIAS 99
[2021-04-12] MEDS: ASPIRIN 81 MG CHEWABLE TABLET PO SCH (09:04)
[2021-04-12] MEDS: THIAMINE 100 MG TABLET PO SCH (09:04)
[2021-04-12] MEDS: VERAPAMIL HCL 120 MG ER TABLET PO SCH (09:04)
[2021-04-12] MEDS: OMEPRAZOLE 20 MG CAPSULE PO SCH (09:04)
[2021-04-12] MEDS: FOLIC ACID 1 MG TABLET PO SCH (09:04)
[2021-04-12] MEDS: MULTIVITAMINS, THERAPEUTIC TABLET PO SCH (09:04)
[2021-04-12 16:00] VITALS: BP 146/95
[2021-04-12 16:01] VITALS: BP 145/95
[2021-04-12 16:10] VITALS: BP 146/92
[2021-04-12] MEDS: SIMVASTATIN 10 MG TABLET PO SCH (21:09)
[2021-04-12] MEDS: QUEtiapine FUMARATE 200 MG TABLET PO SCH (21:09)
[2021-04-12] MEDS: MIRTAZAPINE 30 MG TABLET PO SCH (21:09)
[2021-04-13 01:10] VITALS: BP 148/89
[2021-04-13] MEDS: ZOLPIDEM TARTRATE 10 MG TABLET PO PRN ×2 (01:16→21:45)
[2021-04-13] MEDS: IBUPROFEN 400 MG TABLET PO PRN ×2 (01:16→16:48)
[2021-04-13] MEDS: MetFORMIN HCL 500 MG ER TABLET PO SCH ×2 (07:01→17:31)
[2021-04-13 08:34] VITALS: BP 160/96
[2021-04-13 09:19] VITALS: BP 160/96
[2021-04-13] MEDS: OMEPRAZOLE 20 MG CAPSULE PO SCH (09:49)
[2021-04-13] MEDS: THIAMINE 100 MG TABLET PO SCH (09:50)
[2021-04-13] MEDS: ASPIRIN 81 MG CHEWABLE TABLET PO SCH (09:50)
[2021-04-13] MEDS: VERAPAMIL HCL 120 MG ER TABLET PO SCH (09:51)
[2021-04-13] MEDS: MULTIVITAMINS, THERAPEUTIC TABLET PO SCH (09:51)
[2021-04-13] MEDS: FOLIC ACID 1 MG TABLET PO SCH (09:51)
[2021-04-13 16:15] VITALS: BP 149/89
[2021-04-13 16:47] VITALS: BP 144/88
[2021-04-13] MEDS: QUEtiapine FUMARATE 200 MG TABLET PO SCH (21:45)
[2021-04-13] MEDS: MIRTAZAPINE 30 MG TABLET PO SCH (21:45)
[2021-04-13] MEDS: SIMVASTATIN 10 MG TABLET PO SCH (21:45)
[2021-04-13] MEDS: HALOPERIDOL 5 MG TABLET PO PRN (21:49)
[2021-04-14 00:59] VITALS: BP 145/84
[2021-04-14] MEDS: MetFORMIN HCL 500 MG ER TABLET PO SCH ×2 (06:30→17:00)
[2021-04-14] MEDS: OMEPRAZOLE 20 MG CAPSULE PO SCH (08:02)
[2021-04-14] MEDS: VERAPAMIL HCL 120 MG ER TABLET PO SCH (08:02)
[2021-04-14] MEDS: MULTIVITAMINS, THERAPEUTIC TABLET PO SCH (08:02)
[2021-04-14] MEDS: ASPIRIN 81 MG CHEWABLE TABLET PO SCH (08:02)
[2021-04-14] MEDS: FOLIC ACID 1 MG TABLET PO SCH (08:02)
[2021-04-14] MEDS: THIAMINE 100 MG TABLET PO SCH (08:02)
[2021-04-14 08:53] LABS: COVID AG,FIA SOURCE NASOPHARYNGEAL
[2021-04-14 09:00] VITALS: BP 139/82
[2021-04-14] MEDS: HALOPERIDOL 5 MG TABLET PO PRN (13:13)
[2021-04-14 16:43] VITALS: BP 135/84
[2021-04-14] MEDS: SIMVASTATIN 10 MG TABLET PO SCH (20:25)
[2021-04-14] MEDS ORDERED: QUEtiapine FUMARATE 300 MG TABLET PO SCH (21:00)
[2021-04-14] MEDS ORDERED: MIRTAZAPINE 30 MG TABLET PO SCH (21:00)
[2021-04-15 06:29] VITALS: BP 130/72
[2021-04-15] MEDS: IBUPROFEN 400 MG TABLET PO PRN (06:29)
[2021-04-15] MEDS: MetFORMIN HCL 500 MG ER TABLET PO SCH (06:30)
[2021-04-15] MEDS: OMEPRAZOLE 20 MG CAPSULE PO SCH (08:24)
[2021-04-15] MEDS: ASPIRIN 81 MG CHEWABLE TABLET PO SCH (08:24)
[2021-04-15] MEDS: THIAMINE 100 MG TABLET PO SCH (08:24)
[2021-04-15] MEDS: MULTIVITAMINS, THERAPEUTIC TABLET PO SCH (08:25)
[2021-04-15] MEDS: FOLIC ACID 1 MG TABLET PO SCH (08:25)
[2021-04-15] MEDS: VERAPAMIL HCL 120 MG ER TABLET PO SCH (08:25)
[2021-04-15] MEDS ORDERED: QUET300T2 PO (09:08)
[2021-04-15 09:33] VITALS: BP 148/98
== END 2021-04-15 10:30 | disposition home or self-care (01) | DRG 751 ==
LOC: EMS 17:15 → 3EI 04-09 01:00
PROVIDERS: ADMIT Psychiatry & Neurology Child & Adolescent Psychiatry; ATTEND Psychiatry & Neurology Child & Adolescent Psychiatry
DX: F33.2 Major depressive disorder, recurrent severe without psychotic features (principal); E11.9 Type 2 diabetes mellitus without complications; R45.851 Suicidal ideations; E66.01 Morbid (severe) obesity due to excess calories; E78.5 Hyperlipidemia, unspecified; F10.20 Alcohol dependence, uncomplicated; E87.6 Hypokalemia; G40.909 Epilepsy, unspecified, not intractable, without status epilepticus; F41.9 Anxiety disorder, unspecified; R00.0 Tachycardia, unspecified; Z59.00 Homelessness unspecified; Z28.21 Immunization not carried out because of patient refusal; Z79.899 Other long term (current) drug therapy; Z79.82 Long term (current) use of aspirin; Z68.41 Body mass index [BMI] 40.0-44.9, adult
CPT/HCPCS: 80053; 80061; 82962; 85025; 99285; G0480; J2060; J7030

== ENCOUNTER 2021-06-05 10:20 | Inpatient (IN) | payer MEDICAID, MEDICARE ==
[~2021-06-05] VITALS: Ht 167.6 cm; Wt 113.9 kg
[~2021-06-05 10:20] MED LIST changes: -LEVE500T20 PO; -QUET200T30 PO; +QUET300T2 PO
[2021-06-05 11:54] LABS: BASOPHILS % (AUTO) 0.2 % (0.0-2.0); EOSINOPHILS % (AUTO) 0 % (1.0-6.0); HEMATOCRIT 43.4 % (41-53); HEMOGLOBIN 14.6 g/dL (13.5-17.5); LYMPHOCYTES % (AUTO) 10.8 % (22.0-44.0); MEAN CORPUSCULAR HEMOGLOBIN 26.5 pg (26.0-34.0); MEAN CORPUSCULAR HGB CONC 33.6 G/dL (31.0-37.0); MEAN CORPUSCULAR VOLUME 79 fL (80-100); MONOCYTES # (AUTO) 1.5 K/uL (0.1-1.0); MONOCYTES % (AUTO) 15.9 % (2.0-9.0); NEUTROPHILS # (AUTO) 6.8 K/uL (1.8-7.7); NEUTROPHILS % (AUTO) 73.1 % (40.0-70.0); PLATELET COUNT (AUTO) 224 K/uL (150-450); RED BLOOD CELL COUNT(AUTO) 5.51 MIL/uL (4.50-5.90); RED CELL DISTRIBUTION WIDTH 16.7 % (11.5-14.5)
[2021-06-05 12:02] LABS: ANION GAP 13 mmol/L (8-16); CARBON DIOXIDE 24 mmol/L (22-29); CHLORIDE 91 mmol/L (98-107); CREATININE 0.71 mg/dL (0.60-1.30); GLUCOSE,RANDOM 221 mg/dL (70-110); POTASSIUM 4.1 mmol/L (3.5-5.1); SODIUM SERUM 128 mmol/L (136-145); UREA NITROGEN, BLOOD 8 mg/dL (7-18)
[2021-06-05 12:03] LABS: CALCIUM, TOTAL 8.4 mg/dL (8.8-10.5); GLOMERULAR FILTR. RATE CALC > 60 mL/min (>60)
[2021-06-05 12:09] LABS: ALANINE AMINOTRANSFERASE 40 U/L (12-78); ALBUMIN 3.5 g/dL (3.4-5.0); ALKALINE PHOSPHATASE 87 U/L (46-116); ASPARTATE AMINOTRANSFERASE 30 U/L (15-37); BILIRUBIN,TOTAL 0.6 mg/dL (0.1-1.0)
[2021-06-05 12:56] LABS: AMPHET/METH SCREEN,URINE NEGATIVE (NEGATIVE); BARBITURATE SCREEN, URINE NEGATIVE (NEGATIVE); BENZODIAZEPINES SCREEN,URINE NEGATIVE (NEGATIVE); CANNABINOID SCREEN,URINE NEGATIVE (NEGATIVE); COCAINE SCREEN,URINE NEGATIVE (NEGATIVE); METHADONE SCREEN, URINE NEGATIVE (NEGATIVE); OPIATE SCREEN,URINE NEGATIVE (NEGATIVE); PHENCYCLIDINE SCREEN,URINE NEGATIVE (NEGATIVE)
[2021-06-05] MEDS: THIAMINE 100 MG TABLET PO SCH (13:03)
[2021-06-05] MEDS: MULTIVITAMINS, THERAPEUTIC TABLET PO SCH (13:03)
[2021-06-05] MEDS: FOLIC ACID 1 MG TABLET PO SCH (13:03)
[2021-06-05 13:05] LABS: COVID AG,FIA SOURCE NASOPHARYNGEAL
[2021-06-05 13:23] LABS: APPEARANCE,URINE CLEAR (CLEAR); BILIRUBIN,URINE NEGATIVE (NEGATIVE); GLUCOSE, URINE (UA) 100 mg/dL (NEGATIVE); KETONES,URINE TRACE mg/dL (NEGATIVE); LEUKOCYTE ESTERASE ,URINE NEGATIVE (NEGATIVE); NITRATE,URINE NEGATIVE (NEGATIVE); OCCULT BLOOD,URINE NEGATIVE (NEGATIVE); PROTEIN,URINE NEGATIVE (NEGATIVE); UROBILINOGEN,URINE 0.2 mg/dL (<=1.0)
[2021-06-05 13:27] LABS: BACTERIA,URINE None Seen /HPF (None Seen); RBC,URINE None Seen /HPF (0-2); WBC,URINE None Seen /HPF (0-5)
[2021-06-05] MEDS: LORazepam 2 MG TABLET PO PRN ×2 (17:04→21:10)
[2021-06-06] VITALS (10 sets, daily range): BP systolic 128–154; BP diastolic 76–91
[2021-06-06] MEDS: LORazepam 2 MG TABLET PO PRN (05:05)
[2021-06-06] MEDS ORDERED: LORazepam 2 MG TABLET PO PRN (07:00)
[2021-06-06] MEDS ORDERED: DEXTROSE 50%-WATER 25 GM/50 ML SYRINGE IVP PRN (07:00)
[2021-06-06] MEDS: INSULIN LISPRO 100 UNITS/ML SQ PRN ×4 (07:09→21:07)
[2021-06-06 07:21] LABS: GLUCOMETER DEV NAME(LOC) 3E.C; GLUCOSE,POINT OF CARE 281 MG/DL (70-110)
[2021-06-06] MEDS: MULTIVITAMINS, THERAPEUTIC TABLET PO SCH (09:16)
[2021-06-06] MEDS: LORazepam 2 MG TABLET PO SCH ×4 (09:17→21:02)
[2021-06-06] MEDS: FOLIC ACID 1 MG TABLET PO SCH (09:17)
[2021-06-06] MEDS: THIAMINE 100 MG TABLET PO SCH (09:17)
[2021-06-06] MEDS ORDERED: NICOTINE 14 MG/24 HOUR PATCH TD PRN (10:00)
[2021-06-06] MEDS ORDERED: LOPERAMIDE HCL 2 MG CAPSULE PO PRN (10:00)
[2021-06-06] MEDS ORDERED: ACETAMINOPHEN 325 MG TABLET PO PRN (10:00)
[2021-06-06] MEDS ORDERED: CloNIDine HCL 0.1 MG TABLET PO PRN (10:00)
[2021-06-06] MEDS ORDERED: ONDANSETRON HCL 4 MG TABLET PO PRN (10:00)
[2021-06-06] MEDS ORDERED: ALBUTEROL SULFATE HFA 90 MCG/PUFF 8 GM INHALER IH PRN (10:00)
[2021-06-06] MEDS ORDERED: MAG HYDROX/AL HYDROX/SIMETH ES 30 ML SUSPENSION UDCUP PO PRN (10:00)
[2021-06-06] MEDS ORDERED: GuaiFENesin/D-METHORPHAN [SUGAR-FREE] 200-20MG/10 ML SYRUP UDCUP PO PRN (10:00)
[2021-06-06] MEDS ORDERED: PETROLATUM,WHITE 28 GM JELLY TP PRN (10:00)
[2021-06-06] MEDS ORDERED: DOCUSATE SODIUM 100 MG CAPSULE PO PRN (10:00)
[2021-06-06] MEDS ORDERED: MAGNESIUM HYDROXIDE SUSPENSION 30 ML UDCUP PO PRN (10:00)
[2021-06-06 11:23] LABS: FREE T4 (FREE THYROXINE) 1.24 ng/dL (0.76-1.46); THYROID STIMULATING HORMONE 2.31 uIU/mL (0.36-3.74)
[2021-06-06 13:17] LABS: GLUCOMETER DEV NAME(LOC) 3E.C; GLUCOSE,POINT OF CARE 339 MG/DL (70-110)
[2021-06-06 16:16] LABS: GLUCOMETER DEV NAME(LOC) 3E.C; GLUCOSE,POINT OF CARE 226 MG/DL (70-110)
[2021-06-06] MEDS: MetFORMIN HCL 500 MG ER TABLET PO SCH (16:56)
[2021-06-06] MEDS: MIRTAZAPINE 30 MG TABLET PO SCH (21:00)
[2021-06-06] MEDS: QUEtiapine FUMARATE 300 MG TABLET PO SCH (21:02)
[2021-06-06] MEDS: SIMVASTATIN 10 MG TABLET PO SCH (21:02)
[2021-06-06] MEDS: ZOLPIDEM TARTRATE 10 MG TABLET PO PRN (21:15)
[2021-06-06 21:17] LABS: GLUCOMETER DEV NAME(LOC) 3E.C; GLUCOSE,POINT OF CARE 330 MG/DL (70-110)
[2021-06-07 00:48] VITALS: BP 142/82
[2021-06-07 04:48] VITALS: BP 140/80
[2021-06-07] MEDS: MetFORMIN HCL 500 MG ER TABLET PO SCH ×2 (06:34→17:53)
[2021-06-07 08:00] VITALS: BP 119/75
[2021-06-07 08:48] VITALS: BP 119/75
[2021-06-07] MEDS: FOLIC ACID 1 MG TABLET PO SCH (09:45)
[2021-06-07] MEDS: ASPIRIN 81 MG DR TABLET PO SCH (09:45)
[2021-06-07] MEDS: LORazepam 2 MG TABLET PO SCH ×4 (09:45→20:26)
[2021-06-07] MEDS: THIAMINE 100 MG TABLET PO SCH (09:45)
[2021-06-07] MEDS: VERAPAMIL HCL 120 MG ER TABLET PO SCH (09:46)
[2021-06-07] MEDS: MULTIVITAMINS, THERAPEUTIC TABLET PO SCH (09:47)
[2021-06-07 11:57] LABS: GLUCOMETER DEV NAME(LOC) 3E.C; GLUCOSE,POINT OF CARE 311 MG/DL (70-110)
[2021-06-07] MEDS: INSULIN LISPRO 100 UNITS/ML SQ PRN ×3 (11:58→21:21)
[2021-06-07 12:48] VITALS: BP 134/78
[2021-06-07] MEDS: IBUPROFEN 400 MG TABLET PO PRN (14:52)
[2021-06-07 16:01] LABS: GLUCOMETER DEV NAME(LOC) 3E.C; GLUCOSE,POINT OF CARE 296 MG/DL (70-110)
[2021-06-07 16:48] VITALS: BP 128/76
[2021-06-07] MEDS: SIMVASTATIN 10 MG TABLET PO SCH (20:26)
[2021-06-07] MEDS: QUEtiapine FUMARATE 300 MG TABLET PO SCH (20:26)
[2021-06-07] MEDS: MIRTAZAPINE 30 MG TABLET PO SCH (20:26)
[2021-06-07 20:36] LABS: GLUCOMETER DEV NAME(LOC) 3E.C; GLUCOSE,POINT OF CARE 364 MG/DL (70-110)
[2021-06-08 06:31] LABS: GLUCOMETER DEV NAME(LOC) 3E.C; GLUCOSE,POINT OF CARE 292 MG/DL (70-110)
[2021-06-08] MEDS: INSULIN LISPRO 100 UNITS/ML SQ PRN ×4 (06:32→21:09)
[2021-06-08] MEDS: MetFORMIN HCL 500 MG ER TABLET PO SCH ×2 (06:33→16:41)
[2021-06-08] MEDS ORDERED: LORazepam 1 MG TABLET PO PRN (07:00)
[2021-06-08] MEDS: MULTIVITAMINS, THERAPEUTIC TABLET PO SCH (07:55)
[2021-06-08] MEDS: FOLIC ACID 1 MG TABLET PO SCH (07:55)
[2021-06-08] MEDS: ASPIRIN 81 MG DR TABLET PO SCH (07:55)
[2021-06-08] MEDS: QUEtiapine FUMARATE 100 MG TABLET PO PRN ×2 (07:55→12:03)
[2021-06-08] MEDS: THIAMINE 100 MG TABLET PO SCH (07:55)
[2021-06-08] MEDS: VERAPAMIL HCL 120 MG ER TABLET PO SCH (07:56)
[2021-06-08] MEDS: LORazepam 1 MG TABLET PO SCH ×4 (07:56→20:07)
[2021-06-08 08:00] VITALS: BP 139/80
[2021-06-08 12:11] LABS: GLUCOMETER DEV NAME(LOC) 3E.C; GLUCOSE,POINT OF CARE 275 MG/DL (70-110)
[2021-06-08 15:46] LABS: GLUCOMETER DEV NAME(LOC) 3E.C; GLUCOSE,POINT OF CARE 267 MG/DL (70-110)
[2021-06-08 16:12] VITALS: BP 128/83
[2021-06-08] MEDS: QUEtiapine FUMARATE 300 MG TABLET PO SCH (20:08)
[2021-06-08] MEDS: MIRTAZAPINE 30 MG TABLET PO SCH (20:08)
[2021-06-08] MEDS: SIMVASTATIN 10 MG TABLET PO SCH (20:08)
[2021-06-08 20:16] LABS: GLUCOMETER DEV NAME(LOC) 3E.C; GLUCOSE,POINT OF CARE 347 MG/DL (70-110)
[2021-06-08] MEDS: ZOLPIDEM TARTRATE 10 MG TABLET PO PRN (20:30)
[2021-06-09 06:31] LABS: GLUCOMETER DEV NAME(LOC) 3E.C; GLUCOSE,POINT OF CARE 283 MG/DL (70-110)
[2021-06-09] MEDS: MetFORMIN HCL 500 MG ER TABLET PO SCH ×2 (06:35→17:15)
[2021-06-09] MEDS: INSULIN LISPRO 100 UNITS/ML SQ PRN ×4 (06:38→20:24)
[2021-06-09] MEDS ORDERED: LORazepam 1 MG TABLET PO PRN (07:00)
[2021-06-09] MEDS: THIAMINE 100 MG TABLET PO SCH (08:28)
[2021-06-09] MEDS: ASPIRIN 81 MG DR TABLET PO SCH (08:28)
[2021-06-09] MEDS: MULTIVITAMINS, THERAPEUTIC TABLET PO SCH (08:28)
[2021-06-09] MEDS: VERAPAMIL HCL 120 MG ER TABLET PO SCH (08:29)
[2021-06-09] MEDS: FOLIC ACID 1 MG TABLET PO SCH (08:29)
[2021-06-09 11:33] VITALS: BP 143/86
[2021-06-09 12:02] LABS: GLUCOMETER DEV NAME(LOC) 3E.C; GLUCOSE,POINT OF CARE 313 MG/DL (70-110)
[2021-06-09] MEDS: LORazepam 2 MG TABLET PO PRN (14:16)
[2021-06-09 16:31] LABS: GLUCOMETER DEV NAME(LOC) 3E.C; GLUCOSE,POINT OF CARE 269 MG/DL (70-110)
[2021-06-09 16:37] VITALS: BP 154/85
[2021-06-09] MEDS: IBUPROFEN 400 MG TABLET PO PRN (17:16)
[2021-06-09] MEDS: QUEtiapine FUMARATE 300 MG TABLET PO SCH (20:15)
[2021-06-09] MEDS: MIRTAZAPINE 30 MG TABLET PO SCH (20:15)
[2021-06-09] MEDS: SIMVASTATIN 10 MG TABLET PO SCH (20:15)
[2021-06-09 20:31] LABS: GLUCOMETER DEV NAME(LOC) 3E.C; GLUCOSE,POINT OF CARE 344 MG/DL (70-110)
[2021-06-09] MEDS: ZOLPIDEM TARTRATE 10 MG TABLET PO PRN (21:19)
[2021-06-10 06:26] LABS: GLUCOMETER DEV NAME(LOC) 3E.C; GLUCOSE,POINT OF CARE 243 MG/DL (70-110)
[2021-06-10] MEDS: MetFORMIN HCL 500 MG ER TABLET PO SCH ×2 (06:32→17:17)
[2021-06-10] MEDS: INSULIN LISPRO 100 UNITS/ML SQ PRN ×4 (06:52→20:18)
[2021-06-10 08:36] VITALS: BP 145/83
[2021-06-10] MEDS: VERAPAMIL HCL 120 MG ER TABLET PO SCH (09:37)
[2021-06-10] MEDS: FOLIC ACID 1 MG TABLET PO SCH (09:39)
[2021-06-10] MEDS: ASPIRIN 81 MG DR TABLET PO SCH (09:39)
[2021-06-10] MEDS: MULTIVITAMINS, THERAPEUTIC TABLET PO SCH (09:39)
[2021-06-10] MEDS: THIAMINE 100 MG TABLET PO SCH (09:40)
[2021-06-10] MEDS: LORazepam 2 MG TABLET PO PRN ×2 (10:58→15:57)
[2021-06-10 11:11] LABS: GLUCOMETER DEV NAME(LOC) 3E.C; GLUCOSE,POINT OF CARE 354 MG/DL (70-110)
[2021-06-10 16:11] LABS: GLUCOMETER DEV NAME(LOC) 3E.C; GLUCOSE,POINT OF CARE 417 MG/DL (70-110)
[2021-06-10 16:26] VITALS: BP 121/78
[2021-06-10] MEDS ORDERED: INSULIN LISPRO 100 UNITS/ML SQ ONE (16:45)
[2021-06-10] MEDS ORDERED: METF-1211 PO (16:49)
[2021-06-10] MEDS ORDERED: LITH300C3 PO (16:49)
[2021-06-10] MEDS ORDERED: ALOG25TA2 PO (16:49)
[2021-06-10] MEDS ORDERED: INSLAN SQ (16:49)
[2021-06-10] MEDS ORDERED: LISI10TA24 PO (16:49)
[2021-06-10] MEDS: QUEtiapine FUMARATE 300 MG TABLET PO SCH (20:01)
[2021-06-10] MEDS: MIRTAZAPINE 30 MG TABLET PO SCH (20:01)
[2021-06-10] MEDS: SIMVASTATIN 10 MG TABLET PO SCH (20:01)
[2021-06-10 20:15] LABS: GLUCOMETER DEV NAME(LOC) 3E.C; GLUCOSE,POINT OF CARE 324 MG/DL (70-110)
[2021-06-11] MEDS: LORazepam 2 MG TABLET PO PRN ×2 (00:39→07:02)
[2021-06-11 00:46] VITALS: BP 153/85
[2021-06-11 06:01] LABS: GLUCOMETER DEV NAME(LOC) 3E.C; GLUCOSE,POINT OF CARE 328 MG/DL (70-110)
[2021-06-11] MEDS: MetFORMIN HCL 500 MG ER TABLET PO SCH (06:33)
[2021-06-11] MEDS: INSULIN LISPRO 100 UNITS/ML SQ PRN (06:37)
[2021-06-11 08:00] VITALS: BP 116/75
[2021-06-11] MEDS: VERAPAMIL HCL 120 MG ER TABLET PO SCH (08:00)
[2021-06-11] MEDS: THIAMINE 100 MG TABLET PO SCH (08:00)
[2021-06-11] MEDS: FOLIC ACID 1 MG TABLET PO SCH (08:00)
[2021-06-11] MEDS: ASPIRIN 81 MG DR TABLET PO SCH (08:00)
[2021-06-11] MEDS: MULTIVITAMINS, THERAPEUTIC TABLET PO SCH (08:00)
[2021-06-11] MEDS ORDERED: MIRT30 PO (08:54)
[2021-06-11] MEDS ORDERED: QUET300T2 PO (08:54)
== END 2021-06-11 11:20 | disposition home or self-care (01) | DRG 750 ==
LOC: EMS 10:22 → 3EC 06-06 02:16
PROVIDERS: ADMIT Psychiatry & Neurology Psychiatry; ATTEND Psychiatry & Neurology Psychiatry
DX: F25.1 Schizoaffective disorder, depressive type (principal); E87.1 Hypo-osmolality and hyponatremia; R45.851 Suicidal ideations; E11.9 Type 2 diabetes mellitus without complications; E66.01 Morbid (severe) obesity due to excess calories; E78.5 Hyperlipidemia, unspecified; Z20.822 Contact with and (suspected) exposure to COVID-19; F10.129 Alcohol abuse with intoxication, unspecified; I25.10 Atherosclerotic heart disease of native coronary artery without angina pectoris; Y90.7 Blood alcohol level of 200-239 mg/100 ml; I48.91 Unspecified atrial fibrillation; K21.9 Gastro-esophageal reflux disease without esophagitis; Z59.00 Homelessness unspecified; Z65.3 Problems related to other legal circumstances; Z79.899 Other long term (current) drug therapy; Z87.11 Personal history of peptic ulcer disease
CPT/HCPCS: 80053; 80061; 81001; 82962; 84439; 84443; 85025; 99285; G0480; J1815

== ENCOUNTER 2021-06-17 15:01 | Inpatient (IN) | payer MEDICAID ==
[~2021-06-17] VITALS: Ht 170.2 cm; Wt 111.1 kg
[~2021-06-17 15:01] MED LIST changes: +ALOG25TA2 PO; +INSLAN SQ; +LISI10TA24 PO; +METF-1211 PO; -METF-911 PO
[2021-06-17 16:29] LABS: BASOPHILS % (AUTO) 0.5 % (0.0-2.0); EOSINOPHILS % (AUTO) 0.7 % (1.0-6.0); HEMATOCRIT 45.2 % (41-53); LYMPHOCYTES # (AUTO) 2.4 K/uL (1.0-4.8); LYMPHOCYTES % (AUTO) 35.7 % (22.0-44.0); MEAN CORPUSCULAR HEMOGLOBIN 26.3 pg (26.0-34.0); MEAN CORPUSCULAR HGB CONC 33.1 G/dL (31.0-37.0); MEAN CORPUSCULAR VOLUME 79 fL (80-100); MONOCYTES # (AUTO) 0.6 K/uL (0.1-1.0); MONOCYTES % (AUTO) 8.6 % (2.0-9.0); NEUTROPHILS # (AUTO) 3.6 K/uL (1.8-7.7); NEUTROPHILS % (AUTO) 54.5 % (40.0-70.0); PLATELET COUNT (AUTO) 409 K/uL (150-450); RED CELL DISTRIBUTION WIDTH 16.5 % (11.5-14.5)
[2021-06-17 16:38] LABS: ANION GAP 9 mmol/L (8-16); CALCIUM, TOTAL 8.6 mg/dL (8.8-10.5); CARBON DIOXIDE 28 mmol/L (22-29); CHLORIDE 102 mmol/L (98-107); GLOMERULAR FILTR. RATE CALC > 60 mL/min (>60); GLUCOSE,RANDOM 217 mg/dL (70-110); SODIUM SERUM 139 mmol/L (136-145); UREA NITROGEN, BLOOD 7 mg/dL (7-18)
[2021-06-17 16:44] LABS: ALANINE AMINOTRANSFERASE 36 U/L (12-78); ALBUMIN 3.6 g/dL (3.4-5.0); ALKALINE PHOSPHATASE 71 U/L (46-116); ASPARTATE AMINOTRANSFERASE 20 U/L (15-37); BILIRUBIN,TOTAL 0.3 mg/dL (0.1-1.0); TOTAL PROTEIN, SERUM 7.9 g/dL (6.4-8.2)
[2021-06-17 20:15] LABS: COVID AG,FIA SOURCE NASOPHARYNGEAL
[2021-06-18] MEDS ORDERED: LORazepam 1 MG TABLET PO ONE (01:30)
[2021-06-18] MEDS: LORazepam 2 MG TABLET PO PRN ×4 (05:40→20:00)
[2021-06-18 09:03] LABS: APPEARANCE,URINE CLEAR (CLEAR); BILIRUBIN,URINE NEGATIVE (NEGATIVE); GLUCOSE, URINE (UA) 250 mg/dL (NEGATIVE); KETONES,URINE >=80 mg/dL (NEGATIVE); LEUKOCYTE ESTERASE ,URINE NEGATIVE (NEGATIVE); NITRATE,URINE NEGATIVE (NEGATIVE); OCCULT BLOOD,URINE NEGATIVE (NEGATIVE); PH,URINE 6.5 (5.0-8.0); PROTEIN,URINE NEGATIVE (NEGATIVE)
[2021-06-18 09:06] LABS: AMPHET/METH SCREEN,URINE NEGATIVE (NEGATIVE); BARBITURATE SCREEN, URINE NEGATIVE (NEGATIVE); BENZODIAZEPINES SCREEN,URINE NEGATIVE (NEGATIVE); CANNABINOID SCREEN,URINE NEGATIVE (NEGATIVE); COCAINE SCREEN,URINE NEGATIVE (NEGATIVE); METHADONE SCREEN, URINE NEGATIVE (NEGATIVE); OPIATE SCREEN,URINE NEGATIVE (NEGATIVE)
[2021-06-18 09:13] LABS: PHENCYCLIDINE SCREEN,URINE NEGATIVE (NEGATIVE)
[2021-06-18 09:28] LABS: BACTERIA,URINE None Seen /HPF (None Seen); RBC,URINE 0-2 /HPF (0-2); WBC,URINE None Seen /HPF (0-5)
[2021-06-18] MEDS ORDERED: DEXTROSE 50%-WATER 25 GM/50 ML SYRINGE IVP PRN (09:30)
[2021-06-18] MEDS ORDERED: ONDANSETRON HCL 4 MG TABLET PO PRN ×2 (09:45→12:30)
[2021-06-18 09:52] LABS: GLUCOMETER DEV NAME(LOC) ERT.5; GLUCOSE,POINT OF CARE 218 MG/DL (70-110)
[2021-06-18] MEDS: INSULIN LISPRO 100 UNITS/ML SQ PRN ×4 (10:19→20:42)
[2021-06-18 11:44] VITALS: BP 155/96
[2021-06-18 12:01] LABS: GLUCOMETER DEV NAME(LOC) BV2S.; GLUCOSE,POINT OF CARE 222 MG/DL (70-110)
[2021-06-18] MEDS ORDERED: LOPERAMIDE HCL 2 MG CAPSULE PO PRN (12:30)
[2021-06-18] MEDS ORDERED: NICOTINE 14 MG/24 HOUR PATCH TD PRN (12:30)
[2021-06-18] MEDS ORDERED: ALBUTEROL SULFATE HFA 90 MCG/PUFF 8 GM INHALER IH PRN (12:30)
[2021-06-18] MEDS ORDERED: MAG HYDROX/AL HYDROX/SIMETH ES 30 ML SUSPENSION UDCUP PO PRN (12:30)
[2021-06-18] MEDS ORDERED: ACETAMINOPHEN 325 MG TABLET PO PRN (12:30)
[2021-06-18] MEDS ORDERED: DOCUSATE SODIUM 100 MG CAPSULE PO PRN (12:30)
[2021-06-18] MEDS ORDERED: MAGNESIUM HYDROXIDE SUSPENSION 30 ML UDCUP PO PRN (12:30)
[2021-06-18] MEDS ORDERED: CloNIDine HCL 0.1 MG TABLET PO PRN (12:30)
[2021-06-18] MEDS ORDERED: PETROLATUM,WHITE 28 GM JELLY TP PRN (12:30)
[2021-06-18] MEDS ORDERED: GuaiFENesin/D-METHORPHAN [SUGAR-FREE] 200-20MG/10 ML SYRUP UDCUP PO PRN (12:30)
[2021-06-18] MEDS ORDERED: INFLUENZA VIRUS VACCINE QVS 2021-22 (6MO+)/PF 60 MCG/0.5 ML SYRINGE IM. ONE (13:45)
[2021-06-18 16:08] VITALS: BP 147/84
[2021-06-18] MEDS: MetFORMIN HCL 500 MG TABLET PO SCH (16:42)
[2021-06-18 17:11] LABS: GLUCOMETER DEV NAME(LOC) BV2S.; GLUCOSE,POINT OF CARE 317 MG/DL (70-110)
[2021-06-18] MEDS: IBUPROFEN 400 MG TABLET PO PRN (19:59)
[2021-06-18] MEDS: SIMVASTATIN 10 MG TABLET PO SCH (19:59)
[2021-06-18] MEDS: HALOPERIDOL 5 MG TABLET PO PRN (20:00)
[2021-06-18 21:11] LABS: GLUCOMETER DEV NAME(LOC) BV2S.; GLUCOSE,POINT OF CARE 338 MG/DL (70-110)
[2021-06-18] MEDS ORDERED: GLUCAGON,HUMAN RECOMBINANT 1 MG VIAL IM PRN (21:45)
[2021-06-19] MEDS: LORazepam 2 MG TABLET PO PRN ×4 (03:57→20:51)
[2021-06-19 04:00] VITALS: BP 114/83
[2021-06-19] MEDS: MetFORMIN HCL 500 MG TABLET PO SCH ×2 (06:13→16:28)
[2021-06-19] MEDS: INSULIN LISPRO 100 UNITS/ML SQ PRN ×4 (06:15→20:54)
[2021-06-19 06:21] LABS: GLUCOMETER DEV NAME(LOC) BV2S.; GLUCOSE,POINT OF CARE 277 MG/DL (70-110)
[2021-06-19 08:18] VITALS: BP 141/86
[2021-06-19] MEDS: VERAPAMIL HCL 120 MG ER TABLET PO SCH (08:19)
[2021-06-19] MEDS: ASPIRIN 81 MG DR TABLET PO SCH (08:21)
[2021-06-19] MEDS: LISINOPRIL 10 MG TABLET PO SCH (08:21)
[2021-06-19] MEDS: OMEPRAZOLE 20 MG CAPSULE PO SCH (08:21)
[2021-06-19] MEDS: LITHIUM CARBONATE 300 MG CAPSULE PO SCH ×2 (09:36→16:28)
[2021-06-19 11:02] LABS: GLUCOMETER DEV NAME(LOC) BV2S.; GLUCOSE,POINT OF CARE 251 MG/DL (70-110)
[2021-06-19] MEDS: HALOPERIDOL 5 MG TABLET PO PRN (14:02)
[2021-06-19 16:21] VITALS: BP 144/87
[2021-06-19 16:51] LABS: GLUCOMETER DEV NAME(LOC) BV2S.; GLUCOSE,POINT OF CARE 283 MG/DL (70-110)
[2021-06-19] MEDS: QUEtiapine FUMARATE 300 MG TABLET PO SCH (20:47)
[2021-06-19] MEDS: SIMVASTATIN 10 MG TABLET PO SCH (20:47)
[2021-06-19] MEDS: MIRTAZAPINE 30 MG TABLET PO SCH (20:47)
[2021-06-19 21:11] LABS: GLUCOMETER DEV NAME(LOC) BV2S.; GLUCOSE,POINT OF CARE 300 MG/DL (70-110)
[2021-06-20 01:08] VITALS: BP 138/94
[2021-06-20 06:11] LABS: GLUCOMETER DEV NAME(LOC) BV2S.; GLUCOSE,POINT OF CARE 343 MG/DL (70-110)
[2021-06-20] MEDS: INSULIN LISPRO 100 UNITS/ML SQ PRN ×4 (06:40→20:19)
[2021-06-20] MEDS: MetFORMIN HCL 500 MG TABLET PO SCH ×2 (06:54→16:48)
[2021-06-20] MEDS: HALOPERIDOL 5 MG TABLET PO PRN (07:06)
[2021-06-20] MEDS: LORazepam 2 MG TABLET PO PRN ×4 (07:06→20:13)
[2021-06-20 08:15] VITALS: BP 120/67
[2021-06-20] MEDS: LITHIUM CARBONATE 300 MG CAPSULE PO SCH ×2 (08:27→16:48)
[2021-06-20] MEDS: LISINOPRIL 10 MG TABLET PO SCH (08:27)
[2021-06-20] MEDS: OMEPRAZOLE 20 MG CAPSULE PO SCH (08:27)
[2021-06-20] MEDS: VERAPAMIL HCL 120 MG ER TABLET PO SCH (08:27)
[2021-06-20] MEDS: ASPIRIN 81 MG DR TABLET PO SCH (08:27)
[2021-06-20 11:46] LABS: GLUCOMETER DEV NAME(LOC) BV2S.; GLUCOSE,POINT OF CARE 336 MG/DL (70-110)
[2021-06-20 16:19] VITALS: BP 118/64
[2021-06-20 16:56] LABS: GLUCOMETER DEV NAME(LOC) BV2S.; GLUCOSE,POINT OF CARE 286 MG/DL (70-110)
[2021-06-20] MEDS: QUEtiapine FUMARATE 300 MG TABLET PO SCH (20:13)
[2021-06-20] MEDS: MIRTAZAPINE 30 MG TABLET PO SCH (20:13)
[2021-06-20] MEDS: SIMVASTATIN 10 MG TABLET PO SCH (20:13)
[2021-06-20 22:12] LABS: GLUCOMETER DEV NAME(LOC) BV2S.; GLUCOSE,POINT OF CARE 269 MG/DL (70-110)
[2021-06-21 00:06] VITALS: BP 130/74
[2021-06-21] MEDS: ZOLPIDEM TARTRATE 10 MG TABLET PO PRN (01:42)
[2021-06-21] MEDS: IBUPROFEN 400 MG TABLET PO PRN (01:42)
[2021-06-21 06:22] LABS: GLUCOMETER DEV NAME(LOC) BV2S.; GLUCOSE,POINT OF CARE 247 MG/DL (70-110)
[2021-06-21] MEDS: MetFORMIN HCL 500 MG TABLET PO SCH ×2 (06:35→16:43)
[2021-06-21 06:36] VITALS: BP 131/76
[2021-06-21] MEDS: INSULIN LISPRO 100 UNITS/ML SQ PRN ×4 (06:38→20:20)
[2021-06-21] MEDS: HALOPERIDOL 5 MG TABLET PO PRN (07:08)
[2021-06-21] MEDS: LORazepam 2 MG TABLET PO PRN ×4 (07:08→20:15)
[2021-06-21 07:17] LABS: LITHIUM < 0.20 mmol/L (0.60-1.20)
[2021-06-21 07:25] LABS: CHOL/HDL RATIO 2.8 (4.2-7.3); CHOLESTEROL 133 mg/dL (131-200); HDL CHOLESTEROL 47 mg/dL (40-60); LDL CHOL (CALC.) 70 mg/dL (0-130); TRIGLYCERIDES 78 mg/dL (15-150)
[2021-06-21 08:04] VITALS: BP 121/77
[2021-06-21] MEDS: VERAPAMIL HCL 120 MG ER TABLET PO SCH (10:36)
[2021-06-21] MEDS: ASPIRIN 81 MG DR TABLET PO SCH (10:37)
[2021-06-21] MEDS: LITHIUM CARBONATE 300 MG CAPSULE PO SCH ×2 (10:37→16:43)
[2021-06-21] MEDS: OMEPRAZOLE 20 MG CAPSULE PO SCH (10:37)
[2021-06-21] MEDS: FOLIC ACID 1 MG TABLET PO SCH (10:37)
[2021-06-21] MEDS: THIAMINE 100 MG TABLET PO SCH (10:38)
[2021-06-21] MEDS: LISINOPRIL 10 MG TABLET PO SCH (10:38)
[2021-06-21] MEDS: MULTIVITAMINS WITH MINERALS, THERAPEUTIC TABLET PO SCH (10:38)
[2021-06-21 11:46] LABS: GLUCOMETER DEV NAME(LOC) BV2S.; GLUCOSE,POINT OF CARE 327 MG/DL (70-110)
[2021-06-21 16:03] VITALS: BP 111/72
[2021-06-21 17:21] LABS: GLUCOMETER DEV NAME(LOC) BV2S.; GLUCOSE,POINT OF CARE 297 MG/DL (70-110)
[2021-06-21] MEDS: MIRTAZAPINE 30 MG TABLET PO SCH (20:15)
[2021-06-21] MEDS: QUEtiapine FUMARATE 300 MG TABLET PO SCH (20:15)
[2021-06-21] MEDS: SIMVASTATIN 10 MG TABLET PO SCH (20:15)
[2021-06-21 21:21] LABS: GLUCOMETER DEV NAME(LOC) BV2S.; GLUCOSE,POINT OF CARE 281 MG/DL (70-110)
[2021-06-22 00:05] VITALS: BP 118/69
[2021-06-22 05:42] VITALS: BP 128/78
[2021-06-22 06:37] LABS: GLUCOMETER DEV NAME(LOC) BV2S.; GLUCOSE,POINT OF CARE 266 MG/DL (70-110)
[2021-06-22] MEDS: MetFORMIN HCL 500 MG TABLET PO SCH ×2 (06:46→16:06)
[2021-06-22] MEDS: INSULIN LISPRO 100 UNITS/ML SQ PRN ×3 (06:50→17:00)
[2021-06-22] MEDS: LORazepam 2 MG TABLET PO PRN ×4 (07:10→20:52)
[2021-06-22 08:07] VITALS: BP 137/72
[2021-06-22] MEDS: VERAPAMIL HCL 120 MG ER TABLET PO SCH (08:56)
[2021-06-22] MEDS: LITHIUM CARBONATE 300 MG CAPSULE PO SCH ×2 (08:57→16:06)
[2021-06-22] MEDS: OMEPRAZOLE 20 MG CAPSULE PO SCH (08:57)
[2021-06-22] MEDS: THIAMINE 100 MG TABLET PO SCH (08:57)
[2021-06-22] MEDS: MULTIVITAMINS WITH MINERALS, THERAPEUTIC TABLET PO SCH (08:57)
[2021-06-22] MEDS: FOLIC ACID 1 MG TABLET PO SCH (08:57)
[2021-06-22] MEDS: ASPIRIN 81 MG DR TABLET PO SCH (08:57)
[2021-06-22] MEDS: LISINOPRIL 10 MG TABLET PO SCH (08:58)
[2021-06-22 11:51] LABS: GLUCOMETER DEV NAME(LOC) BV2S.; GLUCOSE,POINT OF CARE 324 MG/DL (70-110)
[2021-06-22] MEDS: HALOPERIDOL 5 MG TABLET PO PRN (14:04)
[2021-06-22 16:07] VITALS: BP 107/72
[2021-06-22 17:11] LABS: GLUCOMETER DEV NAME(LOC) BV2S.; GLUCOSE,POINT OF CARE 325 MG/DL (70-110)
[2021-06-22] MEDS: QUEtiapine FUMARATE 300 MG TABLET PO SCH (20:20)
[2021-06-22] MEDS: MIRTAZAPINE 30 MG TABLET PO SCH (20:21)
[2021-06-22] MEDS: SIMVASTATIN 10 MG TABLET PO SCH (20:21)
[2021-06-22] MEDS: ZOLPIDEM TARTRATE 10 MG TABLET PO PRN (20:24)
[2021-06-23 04:06] VITALS: BP 124/83
[2021-06-23] MEDS: INSULIN LISPRO 100 UNITS/ML SQ PRN ×3 (06:40→21:21)
[2021-06-23 06:45] VITALS: BP 127/80
[2021-06-23 06:46] LABS: GLUCOMETER DEV NAME(LOC) BV2S.; GLUCOSE,POINT OF CARE 283 MG/DL (70-110)
[2021-06-23] MEDS: MetFORMIN HCL 500 MG TABLET PO SCH ×2 (06:47→16:33)
[2021-06-23] MEDS: LORazepam 2 MG TABLET PO PRN ×3 (06:47→22:45)
[2021-06-23 08:10] VITALS: BP 119/55
[2021-06-23] MEDS: FOLIC ACID 1 MG TABLET PO SCH (08:48)
[2021-06-23] MEDS: LITHIUM CARBONATE 300 MG CAPSULE PO SCH ×2 (08:48→16:33)
[2021-06-23] MEDS: THIAMINE 100 MG TABLET PO SCH (08:48)
[2021-06-23] MEDS: LISINOPRIL 10 MG TABLET PO SCH (08:48)
[2021-06-23] MEDS: MULTIVITAMINS WITH MINERALS, THERAPEUTIC TABLET PO SCH (08:48)
[2021-06-23] MEDS: VERAPAMIL HCL 120 MG ER TABLET PO SCH (08:49)
[2021-06-23] MEDS: OMEPRAZOLE 20 MG CAPSULE PO SCH (08:49)
[2021-06-23] MEDS: ASPIRIN 81 MG DR TABLET PO SCH (08:49)
[2021-06-23 11:16] LABS: GLUCOMETER DEV NAME(LOC) BV2S.; GLUCOSE,POINT OF CARE 276 MG/DL (70-110)
[2021-06-23] MEDS: HALOPERIDOL 5 MG TABLET PO PRN (12:50)
[2021-06-23 13:11] LABS: GLUCOMETER DEV NAME(LOC) POC.BV
[2021-06-23 16:17] VITALS: BP 125/66
[2021-06-23] MEDS ORDERED: INSULIN LISPRO 100 UNITS/ML SQ ONE ×2 (16:45→17:00)
[2021-06-23 17:12] LABS: GLUCOMETER DEV NAME(LOC) BV2S.; GLUCOSE,POINT OF CARE 414 MG/DL (70-110)
[2021-06-23] MEDS: QUEtiapine FUMARATE 300 MG TABLET PO SCH (21:06)
[2021-06-23] MEDS: SIMVASTATIN 10 MG TABLET PO SCH (21:06)
[2021-06-23] MEDS: MIRTAZAPINE 30 MG TABLET PO SCH (21:07)
[2021-06-23] MEDS: IBUPROFEN 400 MG TABLET PO PRN (21:07)
[2021-06-23 21:36] LABS: GLUCOMETER DEV NAME(LOC) BV2S.; GLUCOSE,POINT OF CARE 286 MG/DL (70-110)
[2021-06-24 00:58] VITALS: BP 127/71
[2021-06-24 06:27] LABS: GLUCOMETER DEV NAME(LOC) BV2S.; GLUCOSE,POINT OF CARE 253 MG/DL (70-110)
[2021-06-24] MEDS: MetFORMIN HCL 500 MG TABLET PO SCH ×2 (06:34→16:28)
[2021-06-24] MEDS: INSULIN LISPRO 100 UNITS/ML SQ PRN ×4 (06:35→20:49)
[2021-06-24] MEDS: LORazepam 2 MG TABLET PO PRN ×2 (08:57→17:23)
[2021-06-24] MEDS: OMEPRAZOLE 20 MG CAPSULE PO SCH (08:57)
[2021-06-24] MEDS: FOLIC ACID 1 MG TABLET PO SCH (08:57)
[2021-06-24] MEDS: LITHIUM CARBONATE 300 MG CAPSULE PO SCH ×2 (08:57→16:28)
[2021-06-24] MEDS: LISINOPRIL 10 MG TABLET PO SCH (08:57)
[2021-06-24] MEDS: THIAMINE 100 MG TABLET PO SCH (08:57)
[2021-06-24] MEDS: MULTIVITAMINS WITH MINERALS, THERAPEUTIC TABLET PO SCH (08:57)
[2021-06-24] MEDS: VERAPAMIL HCL 120 MG ER TABLET PO SCH (08:57)
[2021-06-24] MEDS: ASPIRIN 81 MG DR TABLET PO SCH (08:58)
[2021-06-24 11:06] LABS: GLUCOMETER DEV NAME(LOC) BV2S.; GLUCOSE,POINT OF CARE 320 MG/DL (70-110)
[2021-06-24 11:35] VITALS: BP 126/74
[2021-06-24 11:37] VITALS: BP 106/71
[2021-06-24 16:19] VITALS: BP 111/66
[2021-06-24] MEDS: HALOPERIDOL 5 MG TABLET PO PRN (16:27)
[2021-06-24 16:32] LABS: GLUCOMETER DEV NAME(LOC) BV2S.; GLUCOSE,POINT OF CARE 367 MG/DL (70-110)
[2021-06-24] MEDS: SIMVASTATIN 10 MG TABLET PO SCH (20:27)
[2021-06-24] MEDS: QUEtiapine FUMARATE 300 MG TABLET PO SCH (20:28)
[2021-06-24] MEDS: MIRTAZAPINE 30 MG TABLET PO SCH (20:28)
[2021-06-24 20:42] LABS: GLUCOMETER DEV NAME(LOC) BV2S.; GLUCOSE,POINT OF CARE 258 MG/DL (70-110)
[2021-06-24 22:34] VITALS: BP 117/62
[2021-06-24] MEDS: IBUPROFEN 400 MG TABLET PO PRN (22:35)
[2021-06-25 06:11] LABS: GLUCOMETER DEV NAME(LOC) BV2S.; GLUCOSE,POINT OF CARE 236 MG/DL (70-110)
[2021-06-25] MEDS: MetFORMIN HCL 500 MG TABLET PO SCH ×2 (06:46→16:25)
[2021-06-25] MEDS: INSULIN LISPRO 100 UNITS/ML SQ PRN ×2 (06:48→11:30)
[2021-06-25 07:01] VITALS: BP 125/71
[2021-06-25] MEDS: THIAMINE 100 MG TABLET PO SCH (08:25)
[2021-06-25] MEDS: ASPIRIN 81 MG DR TABLET PO SCH (08:25)
[2021-06-25] MEDS: LITHIUM CARBONATE 300 MG CAPSULE PO SCH ×2 (08:25→16:24)
[2021-06-25] MEDS: VERAPAMIL HCL 120 MG ER TABLET PO SCH (08:25)
[2021-06-25] MEDS: MULTIVITAMINS WITH MINERALS, THERAPEUTIC TABLET PO SCH (08:25)
[2021-06-25] MEDS: OMEPRAZOLE 20 MG CAPSULE PO SCH (08:26)
[2021-06-25] MEDS: FOLIC ACID 1 MG TABLET PO SCH (08:26)
[2021-06-25] MEDS: LISINOPRIL 10 MG TABLET PO SCH (08:26)
[2021-06-25 09:25] VITALS: BP 131/61
[2021-06-25 11:01] LABS: GLUCOMETER DEV NAME(LOC) BV2S.; GLUCOSE,POINT OF CARE 240 MG/DL (70-110)
[2021-06-25] MEDS ORDERED: LITH300C3 PO (14:02)
[2021-06-25] MEDS ORDERED: MIRT30 PO (14:02)
[2021-06-25] MEDS ORDERED: QUET300T2 PO (14:02)
[2021-06-25 16:11] VITALS: BP 128/61
== END 2021-06-25 17:05 | disposition home or self-care (01) | DRG 750 ==
LOC: EMS 15:11 → B2S 06-18 10:43
PROVIDERS: ADMIT Psychiatry & Neurology Psychiatry; ATTEND Psychiatry & Neurology Psychiatry
DX: F25.1 Schizoaffective disorder, depressive type (principal); E11.9 Type 2 diabetes mellitus without complications; R45.851 Suicidal ideations; E78.5 Hyperlipidemia, unspecified; F10.229 Alcohol dependence with intoxication, unspecified; I10 Essential (primary) hypertension; Z20.822 Contact with and (suspected) exposure to COVID-19; K21.9 Gastro-esophageal reflux disease without esophagitis; Y90.8 Blood alcohol level of 240 mg/100 ml or more; Z79.899 Other long term (current) drug therapy; Z65.3 Problems related to other legal circumstances
CPT/HCPCS: 80053; 80061; 80178; 81001; 82962; 85025; 87081; 90686; 99285; G0480; J1815; Q0162

== ENCOUNTER 2021-08-10 06:03 | Inpatient (IN) | payer MEDICAID ==
[~2021-08-10] VITALS: Ht 167.6 cm; Wt 109.0 kg
[~2021-08-10 06:03] MED LIST changes: +LITH300C3 PO
[2021-08-11] MEDS ORDERED: GuaiFENesin/D-METHORPHAN [SUGAR-FREE] 200-20MG/10 ML SYRUP UDCUP PO PRN (14:45)
[2021-08-11] MEDS ORDERED: QUEtiapine FUMARATE 100 MG TABLET PO PRN ×2 (14:45)
[2021-08-11] MEDS ORDERED: CYANOCOBALAMIN 1,000 MCG/ML VIAL IM ONE (14:45)
[2021-08-11] MEDS ORDERED: ZOLPIDEM TARTRATE 10 MG TABLET PO PRN (14:45)
[2021-08-11] MEDS ORDERED: HydrOXYzine PAMOATE 50 MG CAPSULE PO PRN (14:45)
[2021-08-11] MEDS ORDERED: PROMETHAZINE HCL 25 MG TABLET PO PRN (14:45)
[2021-08-11] MEDS ORDERED: TUBERCULIN, PURIFIED PROTEIN DERIVATIVE 5 TU/0.1 ML SYRINGE ID ONE (14:45)
[2021-08-11] MEDS ORDERED: LORazepam 2 MG TABLET PO PRN (14:45)
[2021-08-11 15:35] VITALS: BP 143/85
[2021-08-11 16:14] VITALS: BP 136/84
[2021-08-11] MEDS ORDERED: LevETIRAcetam 500 MG TABLET PO SCH (17:00)
[2021-08-11] MEDS: GABAPENTIN 100 MG CAPSULE PO SCH ×2 (17:08→20:24)
[2021-08-11] MEDS: THIAMINE 100 MG TABLET PO SCH (17:08)
[2021-08-11] MEDS: MetFORMIN HCL 500 MG TABLET PO SCH (17:09)
[2021-08-11 19:19] LABS: COVID AG,FIA SOURCE NASOPHARYNGEAL
[2021-08-11] MEDS: MELATONIN 5 MG TABLET PO SCH (20:24)
[2021-08-11] MEDS: SIMVASTATIN 10 MG TABLET PO SCH (20:24)
[2021-08-11] MEDS: LITHIUM CARBONATE 300 MG CAPSULE PO SCH (20:44)
[2021-08-11] MEDS ORDERED: QUEtiapine FUMARATE 200 MG TABLET PO SCH (21:00)
[2021-08-11] MEDS ORDERED: MIRTAZAPINE 15 MG TABLET PO SCH (21:00)
[2021-08-12] MEDS: MetFORMIN HCL 500 MG TABLET PO SCH ×2 (06:54→17:16)
[2021-08-12] MEDS: GlipiZIDE 5 MG TABLET PO SCH ×2 (06:54→17:10)
[2021-08-12] MEDS ORDERED: GlipiZIDE 5 MG TABLET PO SCH (07:00)
[2021-08-12 08:00] VITALS: BP 135/86
[2021-08-12] MEDS: VERAPAMIL HCL 120 MG ER TABLET PO SCH (09:42)
[2021-08-12] MEDS: NALTREXONE HCL 50 MG TABLET PO SCH (09:45)
[2021-08-12] MEDS: ASPIRIN 81 MG CHEWABLE TABLET PO SCH (09:47)
[2021-08-12] MEDS: LISINOPRIL 10 MG TABLET PO SCH (09:47)
[2021-08-12] MEDS: MULTIVITAMINS WITH MINERALS, THERAPEUTIC TABLET PO SCH (09:47)
[2021-08-12] MEDS: THIAMINE 100 MG TABLET PO SCH ×2 (09:47→16:28)
[2021-08-12] MEDS: LITHIUM CARBONATE 300 MG CAPSULE PO SCH ×2 (09:47→20:07)
[2021-08-12] MEDS: OMEGA-3/DHA/EPA/FISH OIL 1,000 MG CAPSULE PO SCH (09:48)
[2021-08-12] MEDS: GABAPENTIN 400 MG CAPSULE PO SCH ×5 (09:48→20:07)
[2021-08-12] MEDS: FOLIC ACID 1 MG TABLET PO SCH (09:48)
[2021-08-12] MEDS: OMEPRAZOLE 20 MG CAPSULE PO SCH (09:49)
[2021-08-12 16:17] VITALS: BP 149/91
[2021-08-12] MEDS: MELATONIN 5 MG TABLET PO SCH (20:07)
[2021-08-12] MEDS: SIMVASTATIN 10 MG TABLET PO SCH (20:09)
[2021-08-12] MEDS ORDERED: MIRT30 PO (20:10)
[2021-08-12] MEDS ORDERED: OMEG-108 PO (20:10)
[2021-08-12] MEDS ORDERED: LITH300C3 PO (20:10)
[2021-08-12] MEDS ORDERED: GABA-1201 PO (20:10)
[2021-08-12] MEDS ORDERED: QUET300T19 PO (20:10)
[2021-08-12] MEDS ORDERED: MELA5TAB40 PO (20:10)
[2021-08-12] MEDS ORDERED: MIRTAZAPINE 30 MG TABLET PO SCH (21:00)
[2021-08-12] MEDS ORDERED: QUEtiapine FUMARATE 300 MG TABLET PO SCH (21:00)
[2021-08-13] MEDS: GlipiZIDE 5 MG TABLET PO SCH (06:58)
[2021-08-13] MEDS ORDERED: MetFORMIN HCL 500 MG TABLET PO SCH (07:30)
[2021-08-13 08:27] VITALS: BP 105/67
[2021-08-13] MEDS: LITHIUM CARBONATE 300 MG CAPSULE PO SCH (08:47)
[2021-08-13] MEDS: NALTREXONE HCL 50 MG TABLET PO SCH (08:47)
[2021-08-13] MEDS: VERAPAMIL HCL 120 MG ER TABLET PO SCH (08:47)
[2021-08-13] MEDS: OMEGA-3/DHA/EPA/FISH OIL 1,000 MG CAPSULE PO SCH (08:47)
[2021-08-13] MEDS: MULTIVITAMINS WITH MINERALS, THERAPEUTIC TABLET PO SCH (08:47)
[2021-08-13] MEDS: THIAMINE 100 MG TABLET PO SCH (08:47)
[2021-08-13] MEDS: FOLIC ACID 1 MG TABLET PO SCH (08:52)
[2021-08-13] MEDS: ASPIRIN 81 MG CHEWABLE TABLET PO SCH (08:52)
[2021-08-13] MEDS: OMEPRAZOLE 20 MG CAPSULE PO SCH (08:53)
[2021-08-13] MEDS: GABAPENTIN 400 MG CAPSULE PO SCH (08:53)
[2021-08-13] MEDS: LISINOPRIL 10 MG TABLET PO SCH (08:54)
[2021-08-13] MEDS ORDERED: GABA-1201 PO (10:06)
[2021-08-13] MEDS ORDERED: LITH300C3 PO (10:07)
[2021-08-13] MEDS ORDERED: MELA5TAB40 PO (10:07)
[2021-08-13] MEDS ORDERED: MIRT30 PO (10:08)
[2021-08-13] MEDS ORDERED: OMEG-108 PO (10:09)
[2021-08-13] MEDS ORDERED: QUET300T2 PO (10:09)
== END 2021-08-13 12:10 | disposition home or self-care (01) | DRG 751 ==
LOC: 3EC 08-11 15:26
PROVIDERS: ADMIT Psychiatry & Neurology Psychiatry; ATTEND Psychiatry & Neurology Psychiatry
DX: F33.9 Major depressive disorder, recurrent, unspecified (principal); G93.41 Metabolic encephalopathy; D64.9 Anemia, unspecified; E11.65 Type 2 diabetes mellitus with hyperglycemia; E78.00 Pure hypercholesterolemia, unspecified; E78.5 Hyperlipidemia, unspecified; F10.10 Alcohol abuse, uncomplicated; Z20.822 Contact with and (suspected) exposure to COVID-19; I10 Essential (primary) hypertension; I25.10 Atherosclerotic heart disease of native coronary artery without angina pectoris; J44.9 Chronic obstructive pulmonary disease, unspecified; K21.9 Gastro-esophageal reflux disease without esophagitis; Z56.0 Unemployment, unspecified; Z91.19 Patient's noncompliance with other medical treatment and regimen; Z87.891 Personal history of nicotine dependence; Z91.51 Personal history of suicidal behavior
CPT/HCPCS: 87081; J3420; Q9967